=== PATIENT | female | born 1955 | race Caucasian/White ===

== ENCOUNTER 2017-09-23 13:02 | Inpatient (IN) | payer OTHER, MEDICARE ==
[~2017-09-23] VITALS: Ht 162.6 cm; Wt 76.5 kg
[~2017-09-23 13:02] MED LIST: ASPI81TA28 PO; CRD200 PO; DONE23TA PO; LEVO50TA PO; MELA1TAB54 PO; MULT-222 PO; NMN10 PO; SERT-234 PO; SIMV20TA2 PO
--- NOTE | 2017-09-23 13:57 | EMERGENCY ROOM VISIT NOTE ---
History First contact with patient: 13:20 Chief Complaint: SYNCOPE Stated Complaint: PASSED OUT, UNABLE TO STAND VERY LONG Nursing Triage Summary: pt to the ED with c/o not being able walk and change in behavior since yesterday and is conerned for a UTI pt unable to answer questions or follow commands at triage History of Present Illness 62F with a PMHX of small vessel ischemic disease presents to the Emergency Room brought in by spouse who complains of acute worsening of an underlying dementia - specifically has a concern for an increased number of fall in the past week. Last fall occured today while the was helping the patient get dressed - he did catch the pt. The fall previous occurred on Thursday where he also caught his . thinks the pt may have an underlying UTI and has been trying to do an outpatient UA. Patient cannot provide a reliable history, it is unclear if this is from her underlying dementia or a worsening of an acute condition. is concerned that he won't be there for the next patients fall and she will seriously injure herself. Per the he reports that the patient's urine is smelling more foul, appears more concentrated and pt has been peeing more frequently. Patient ambulated into the ER today, didn't answer any questions on triage, denies being in any pain at present, cannot tell me her husbands name, answers [place] when asked where she lives and otherwise remains silent or deflects any other direct questions. Pt's baseline mentation: Can answer her husbands name, ambulates without difficulty, cannot take care of herself but is generally safe at home. Spouse also reports that the patient has a decreased PO intake. Per chart review there have been many ER visits for syncope, echo in 2016 showed EF of 65%, spouse denies any recent unwitnessed falls or recent head trauma. Pt sees Dr. Drake in [facility] (PCP) and Dr. Paz (neurology) in [place]. ROS: No chest pain, no SOB, no dyspnea on exertion, no palpitations, no fevers, no chills, no nausea, no vomiting, no diarrhea, no dysuria, no rash. (per patient and spouse) Review of Systems See HPI for pertinent positives and negatives. A total of ten systems were reviewed and were otherwise negative. Past Medical/Surgical History Medical Problems: (1) Advanced dementia (2) CVA (cerebral infarction) (3) HLD (hyperlipidemia) (4) Hypothyroidism (5) PVC (premature ventricular contraction) (6) Syncopal episodes Surgical Problems: (1) H/O tubal ligation Family History Alzheimer's disease Social History Smoking Status: Never Smoker Alcohol Use: occasionally Drug Use: none Marital Status: Housing Status: lives with significant other Occupation Status: retired Current/Historical Medications Scheduled Aspirin (Aspirin Ec), 81 MG PO DAILY Docusate Sodium (Stool Softener), 100 MG PO BID Donepezil Hydrochloride (Aricept), 23 MG PO HS Doxepin Hcl (Doxepin), 75 MG PO HS Levothyroxine Sodium (Synthroid), 50 MCG PO DAILY Memantine (Namenda), 10 MG PO BID Multiple Vitamins W/ Minerals (Multi For Her), 1 TAB PO DAILY Sertraline (Zoloft), 100 MG PO DAILY Simvastatin (Zocor), 20 MG PO HS Physical Exam Vital Signs Date Time Temp Pulse Resp B/P (MAP) Pulse Ox O2 Delivery O2 Flow Rate FiO2 09/23/17 15:59 75 20 121/77 96 Room Air 09/23/17 15:58 75 121/77 74 141/80 110 120/84 09/23/17 14:26 37.0 67 18 167/71 97 Room Air 09/23/17 14:10 69 18 148/70 94 Room Air 09/23/17 14:04 71 09/23/17 13:57 94 Room Air 09/23/17 13:09 37.0 65 16 137/82 96 Room Air Physical Exam Gen: No acute distress. Pleasant appearing female accompanied by . HEENT: Head - normocephalic and atraumatic. Pupils are equal, round, and reactive to light. Extraocular eye muscles are intact and sclera are anicteric. Ears - bilaterally patent canals with noninjected tympanic membranes and no evidence of hemotympanum. Nose - moist nasal mucosa without discharge. Mouth - mucosa appears slightly dry. Oropharynx is nonerythematous and there is no tonsillar exudate or edema noted. Neck: Supple; no JVD, nuchal rigidity, cervical lymphadenopathy, or auscultated bruits. Heart: Regular rate and rhythm. There is a normal S1 and S2 with no murmurs, clicks, or gallops appreciated. Lungs: Clear to auscultation bilaterally with no wheezes, rales, or rhonchi. Abdomen: Soft, completely nontender, nondistended, with good bowel sounds. There are no palpable pulsatile masses or hepatosplenomegaly. There is no guarding, rigidity, or rebound noted. Extremities: Ecchymosis over the anterior R horne. No evidence of cyanosis, clubbing, or edema. There are easily palpable peripheral pulses. Neuro:The patient is awake and alert, oriented only to person (not place or time ). Pt has difficulty following commands, commands must be repeated several times but eventually was able to raise the arms and legs. Muscle strength is 5/ 5 in all 4 extremities. The patient has equal screenplay writer strength and equal pedal push and pull. There is no cogwheel rigidity. Pt is unable to recall 3 items , pt is unable to count down from 10. Medical Decision & Procedures Laboratory Results Test 09/23/17 13:45 09/23/17 13:51 09/23/17 14:05 Prothrombin Time 10.7 SECONDS (9.0-12.0) Prothromb Time International Ratio 1.0 (0.9-1.1) Total Bilirubin 0.6 mg/dl (0.2-1) Aspartate Amino Transf (AST/SGOT) 32 U/L (15-37) Alanine Aminotransferase (ALT/SGPT) 33 U/L (12-78) Alkaline Phosphatase 94 U/L (45-117) Total Protein 7.4 gm/dl (6.4-8.2) Albumin 3.8 gm/dl (3.4-5.0) Globulin 3.6 gm/dl (2.5-4.0) Albumin/Globulin Ratio 1.1 (0.9-2) Bedside Troponin I < 0.030 ng/ml (0-0.045) Urine Color DK YELLOW Urine Appearance CLEAR (CLEAR) Urine pH 5.5 (4.5-7.5) Urine Specific [place] 1.034 (1.000-1.030) Urine Protein TRACE (NEG) Urine Glucose (UA) NEG (NEG) Urine Ketones TRACE (NEG) Urine Occult Blood NEG (NEG) Urine Nitrite NEG (NEG) Urine Bilirubin NEG (NEG) Urine Urobilinogen NEG (NEG) Urine Leukocyte Esterase NEG (NEG) Urine WBC (Auto) 1-5 /hpf (0-5) Urine RBC (Auto) 0-4 /hpf (0-4) Urine Hyaline Casts (Auto) 1-5 /lpf (0-5) Urine Epithelial Cells (Auto) 10-20 /lpf (0-5) Urine Bacteria (Auto) NEG (NEG) Medications Administered Medications (Trade) Dose Ordered Sig/Jevon Route Start Time Stop Time Status Last Admin Dose Admin Sodium Chloride 1,000 ml @ 999 mls/hr Q1H1M IV 09/23/17 14:15 09/23/17 15:15 DC 09/23/17 14:26 999 MLS/HR Medical Decision The patient's care and disposition was discussed with Dr. Caballero, Attending ED Physician. This is a 62F with acute worsening of her dementia. Differential diagnosis include dementia, CVA, fatigue, hypotension, dehydration, infection, hypoglycemia, electrolyte abnormalities, cardiac sources, intracerebral event, toxicologic, neurologic, as well as others were entertained. Triage Nursing notes were reviewed. ED Course included an extensive history and physical exam, labs, EKG and X-ray. CBC and BMP was not significant. Trop was negative. X-ray was normal. UA was unremarkable. EKG was reviewed and repeated and showed non specific ST changes. Orthostatics positive for increased pulse >20beats per min within 3 minutes of standing. Echo in 2016 showed an EF of 65%. Gave patient 1L bolus of NSS. Updated spouse at bedside regarding possible admission. At present time it is unsafe to send the patient home. She at least will need home services and further cardiac eval. Per chart review she has had tilt table testing in the past and has had several Holter Monitors in the past. She may need a Loop recorder. 4:30pm - Spoke with Kimberly JAMES for admission. The pt and spouse was informed about the findings as listed above. All questions were answered. Impression Primary Impression: Syncope Departure Information Dispostion Admitted as an inpatient (Kimberly) Referrals (PCP) Patient Instructions My [facility] Resident Involvement: Resident Care Provided Care Provided: Adult ED
[2017-09-23] MEDS ORDERED: DXP/75 PO (14:00)
[2017-09-23 14:06] LABS: HEMATOCRIT 37.3 % (37-47); HEMOGLOBIN 11.9 g/dL (12.0-16.0); MEAN CELL VOLUME 59.5 fL (80-100); MEAN CORPUSCULAR HGB CONC 31.9 g/dl (32-36); PLATELET COUNT 239 K/uL (130-400); RED CELL DISTRIBUTION WIDTH CV 16.7 % (11.5-14.5); RED CELL DISTRIBUTION WIDTH SD 34.9 fL (36.4-46.3)
[2017-09-23] MEDS ORDERED: SODIUM CHLORIDE 0.9% 1000ML 1,000 ML IV SCH (14:15)
--- NOTE | 2017-09-23 14:21 | DIAGNOSTIC IMAGING REPORT ---
CHEST ONE VIEW PORTABLE CLINICAL HISTORY: syncope COMPARISON STUDY: 07/19/2016 FINDINGS: The cardiac and mediastinal contours are normal. There is no evidence of focal pulmonary consolidation. There is no evidence of failure. No pleural effusions are visualized.[There is a 7 mm right apical density. This is rather dense given its small size and therefore likely is postinflammatory IMPRESSION: No active disease in the chest. Electronically signed by: Chilango Rosenthal M.D. 09/23/2017 2:20 PM Dictated Date/Time: 09/23/2017 2:19 PM
[2017-09-23 14:23] LABS: ALBUMIN 3.8 gm/dl (3.4-5.0); ALT/SGPT 33 U/L (12-78); AST/SGOT 32 U/L (15-37); BLOOD UREA NITROGEN 21 mg/dl (7-18); CARBON DIOXIDE 29 mmol/L (21-32); CREATININE 0.97 mg/dl (0.60-1.20); GLUCOSE 100 mg/dl (70-99); POTASSIUM 3.3 mmol/L (3.5-5.1); SODIUM 138 mmol/L (136-145)
[2017-09-23 14:26] LABS: ALKALINE PHOSPHATASE 94 U/L (45-117); TOTAL PROTEIN 7.4 gm/dl (6.4-8.2)
--- NOTE | 2017-09-23 14:28 | DIAGNOSTIC IMAGING REPORT ---
HEAD WITHOUT CONTRAST (CT) CLINICAL HISTORY: 62 years-old Female with syncope. Acute syncope TECHNIQUE: Multiple axial CT images of the head were obtained without contrast. A dose lowering technique was utilized adhering to the principles of ALARA. CT DOSE: 537.48 mGy.cm COMPARISON: Head CT 07/19/2016 FINDINGS: No acute intracranial hemorrhage, midline shift, intracranial mass, hydrocephalus, territorial ischemia or abnormal extra-axial collection. Advanced cerebral and cerebellar atrophy with ex vacuo ventriculomegaly. Mild chronic microvascular ischemic changes. The calvarium is intact. The paranasal sinuses, mastoid air cells, and middle ear cavities are clear. IMPRESSION: No acute intracranial abnormality. The above report was generated using voice recognition software. It may contain grammatical, syntax or spelling errors. Electronically signed by: Conrad Orozco M.D. 09/23/2017 2:26 PM Dictated Date/Time: 09/23/2017 2:24 PM
[2017-09-23] MEDS ORDERED: DOCU100C PO (16:10)
[2017-09-23] MEDS ORDERED: SENNTAB23 (16:10)
--- NOTE | 2017-09-23 17:02 | EMERGENCY ROOM VISIT NOTE ---
History Report prepared by Cora: Moe Dorado Under the Supervision of: Dr. Renaldo Caballero M.D. First contact with patient: 13:20 Chief Complaint: SYNCOPE Stated Complaint: PASSED OUT, UNABLE TO STAND VERY LONG Nursing Triage Summary: pt to the ED with c/o not being able walk and change in behavior since yesterday and is conerned for a UTI pt unable to answer questions or follow commands at triage History of Present Illness The patient is a 62 year old female who presents to the Emergency Room with complaints of persistent altered mental status beginning three days ago. She has a history of baseline dementia secondary to small vessel ischemic disease. Per , the patient has had a recent rapid increased confusion. He is concerned for UTI, as the patient also has urinary symptoms. Her urinary symptoms include foul smelling urine, increased urinary frequency and dark coloration. The patient's notes that the patient passed out today, but he caught her and she did not suffer any trauma. He states that she was incontinent, and her eyes rolled back in her head, but otherwise denies seizure- like activity. He also notes that she has been falling a lot recently, and has been seen in the ED many times within the past four years for falls and syncopal episodes. Her most recent syncopal episode prior to today was three days ago. She typically passes out around four times a year. The patient's denies fevers. He notes that the patient has not been eating or drinking well recently. The patient denies chest pain, abdominal pain, headache , nausea, or vomiting. HPI limited secondary to dementia. Source of History: patient, spouse/significant other () History Limited By: dementia Onset: Three days ago Quality: other (altered mental status) Timing: other (persistent) Associated Symptoms: + urinary symptoms (foul smell, increased frequency, dark color), No headache, No chest pain, No nausea, No vomiting, No abdominal pain Note: Additional symptoms: syncopal episode. Review of Systems ROS limited secondary to dementia. Past Medical & Surgical Medical Problems: (1) Alzheimers disease (2) Chest pain (3) CVA (cerebral infarction) (4) PVC (premature ventricular contraction) Surgical Problems: (1) H/O tubal ligation Family History Alzheimer's disease Social History Smoking Status: Never Smoker Alcohol Use: occasionally Drug Use: none Marital Status: Housing Status: lives with significant other Occupation Status: retired Current/Historical Medications Scheduled Aspirin (Aspirin Ec), 81 MG PO DAILY Docusate Sodium (Stool Softener), 100 MG PO BID Donepezil Hydrochloride (Aricept), 23 MG PO HS Doxepin Hcl (Doxepin), 75 MG PO HS Levothyroxine Sodium (Synthroid), 50 MCG PO DAILY Memantine (Namenda), 10 MG PO BID Multiple Vitamins W/ Minerals (Multi For Her), 1 TAB PO DAILY Sertraline (Zoloft), 100 MG PO DAILY Simvastatin (Zocor), 20 MG PO HS Allergies Coded Allergies: Penicillins (Verified Allergy, Unknown, unknown, 09/23/17) Physical Exam Vital Signs Date Time Temp Pulse Resp B/P (MAP) Pulse Ox O2 Delivery O2 Flow Rate FiO2 09/23/17 15:59 75 20 121/77 96 Room Air 09/23/17 15:58 75 121/77 74 141/80 110 120/84 09/23/17 14:26 37.0 67 18 167/71 97 Room Air 09/23/17 14:10 69 18 148/70 94 Room Air 09/23/17 14:04 71 09/23/17 13:57 94 Room Air 09/23/17 13:09 37.0 65 16 137/82 96 Room Air Physical Exam Constitutional: Vital signs reviewed. Eyes: Pupils are equal round reactive to light. Conjunctiva are noninjected. ENT: Pharynx is clear without erythema or exudate. Mucous membranes are moist. Neck supple without meningeal signs. Respiratory: Clear to auscultation bilaterally. Breath sounds are equal bilaterally. Cardiovascular: Regular rate and rhythm. No rubs or gallops. GI: Soft, nondistended and nontender. Bowel sounds are present. Musculoskeletal: No peripheral edema. No lower extremity tenderness. Integumentary: No cyanosis. Neurological: The patient is awake and alert. No focal deficits. Psychiatric: Unable to assess. Medical Decision & Procedures ER Provider Diagnostic Interpretation: Radiology results as stated below per my review and the radiologist's interpretation: HEAD WITHOUT CONTRAST (CT) FINDINGS: No acute intracranial hemorrhage, midline shift, intracranial mass, hydrocephalus, territorial ischemia or abnormal extra-axial collection. Advanced cerebral and cerebellar atrophy with ex vacuo ventriculomegaly. Mild chronic microvascular ischemic changes. The calvarium is intact. The paranasal sinuses, mastoid air cells, and middle ear cavities are clear. IMPRESSION: No acute intracranial abnormality. The above report was generated using voice recognition software. It may contain grammatical, syntax or spelling errors. Electronically signed by: Conrad Orozco M.D. 09/23/2017 2:26 PM CHEST ONE VIEW PORTABLE FINDINGS: The cardiac and mediastinal contours are normal. There is no evidence of focal pulmonary consolidation. There is no evidence of failure. No pleural effusions are visualized.[There is a 7 mm right apical density. This is rather dense given its small size and therefore likely is postinflammatory IMPRESSION: No active disease in the chest. Electronically signed by: Chilango Rosenthal M.D. 09/23/2017 2:20 PM Laboratory Results 09/23/17 13:45 09/23/17 13:45 Test 09/23/17 13:45 09/23/17 13:51 09/23/17 14:05 Red Blood Count 6.27 M/uL (4.2-5.4) Mean Corpuscular Volume 59.5 fL (80-100) Mean Corpuscular Hemoglobin 19.0 pg (25-34) Mean Corpuscular Hemoglobin Concent 31.9 g/dl (32-36) RDW Standard Deviation 34.9 fL (36.4-46.3) RDW Coefficient of Variation 16.7 % (11.5-14.5) Anion Gap 5.0 mmol/L (3-11) Estimated GFR () 72.5 Estimated GFR (Non- 62.6 BUN/Creatinine Ratio 22.1 (10-20) Calcium Level 9.0 mg/dl (8.5-10.1) Magnesium Level 2.4 mg/dl (1.8-2.4) Total Bilirubin 0.6 mg/dl (0.2-1) Aspartate Amino Transf (AST/SGOT) 32 U/L (15-37) Alanine Aminotransferase (ALT/SGPT) 33 U/L (12-78) Alkaline Phosphatase 94 U/L (45-117) Total Protein 7.4 gm/dl (6.4-8.2) Albumin 3.8 gm/dl (3.4-5.0) Globulin 3.6 gm/dl (2.5-4.0) Albumin/Globulin Ratio 1.1 (0.9-2) Bedside Troponin I < 0.030 ng/ml (0-0.045) Urine Color DK YELLOW Urine Appearance CLEAR (CLEAR) Urine pH 5.5 (4.5-7.5) Urine Specific [place] 1.034 (1.000-1.030) Urine Protein TRACE (NEG) Urine Glucose (UA) NEG (NEG) Urine Ketones TRACE (NEG) Urine Occult Blood NEG (NEG) Urine Nitrite NEG (NEG) Urine Bilirubin NEG (NEG) Urine Urobilinogen NEG (NEG) Urine Leukocyte Esterase NEG (NEG) Urine WBC (Auto) 1-5 /hpf (0-5) Urine RBC (Auto) 0-4 /hpf (0-4) Urine Hyaline Casts (Auto) 1-5 /lpf (0-5) Urine Epithelial Cells (Auto) 10-20 /lpf (0-5) Urine Bacteria (Auto) NEG (NEG) Laboratory results as reviewed by me. Medications Administered Medications (Trade) Dose Ordered Sig/Jevon Route Start Time Stop Time Status Last Admin Dose Admin Sodium Chloride 1,000 ml @ 999 mls/hr Q1H1M IV 09/23/17 14:15 09/23/17 15:15 DC 09/23/17 14:26 999 MLS/HR ECG Indication: altered mental status Rate (beats per minute): 73 Rhythm: normal sinus Findings: PVC, other (No ST elevations. Limited interpretation due to motion. ) ED Course 1322: The patient was evaluated in room C2B. A complete history and physical exam was performed. 1415: Ordered Sodium Chloride 1000 ml @ 999 mls/hr IV. 1625: Upon reevaluation, the patient is resting. I discussed tonight's findings with her. She verbalized agreement of the treatment plan. The patient will be evaluated for further management. Medical Decision Resident Physician Supervision Note: I did evaluate and examine this patient myself. I did guide management for the patient. I agree with the resident's Dr. Decker assessment as discussed. Please see the resident's dictation for further details. This is a 62-year-old female who presents with syncopal episodes. Differential diagnosis includes orthostatic hypotension, vasovagal syncope, dysrhythmia, metabolic derangement, UTI, seizure. I did perform a limited focused review of portions of the patient's old chart on the electronic medical record. The patient had a Tilt Table Test in 2016 which showed orthostatic hypotension, but not enough to cause symptoms. I did evaluate the patient as noted above. I did obtain history from the patient as well as her . The patient has dementia and is often unreliable in terms of reporting or symptoms per her . He has noted increase confusion as well as urinary symptoms for the past several days. She also had 2 syncopal episodes in the past several days. He states that her doctor has been concerned about possible sick sinus syndrome but her jar capper did not feel this was likely the cause. She did have an EEG 5 years ago which did not show anything remarkable. The patient did not have any significant seizure activity per the but she did have her eyes rolled back and she was incontinent of urine. IV access was established. The patient was placed on a continuous subway guard. I did order and personally review the patient's 12-lead EKG and chest x-ray as described above. I did order and review the patient's blood work as noted in the electronic medical record. I did order a CT of the head. I did review the images myself as well as the radiology report as described above. There is no evidence of acute process. The test results were discussed with the patient and her . Because of her recurrent syncope and change in mental status I did feel the patient would benefit from hospitalization with further evaluation. The case was discussed with the hospitalist and case work aide. Medication Reconcilliation Current Medication List: was personally reviewed by me Blood Pressure Screening Patient's blood pressure: Elevated blood pressure Blood pressure disposition: Elevated BP felt to be situational Consults Time Called: 1620 Consulting Physician: Jessica Marcelino PA-C - [facility] Hospitalist Returned Call: [phone] I spoke with Jessica Marcelino PA-C of [facility]. We discussed the patient and her results. The patient will be further evaluated by Kimberly. Impression Primary Impression: Syncope Scribe Attestation The scribe's documentation has been prepared under my direct and personally reviewed by me in its entirety. I confirm that the note above accurately reflects all work, treatment, procedures, and medical decision making performed by me. Departure Information Dispostion Being Evaluated By Hospitalist Jeanne Askew M.D. (PCP) Patient Instructions My [facility] Problem Qualifiers Primary Impression: Syncope Syncope type: unspecified Qualified Codes: R55 - Syncope and collapse
[2017-09-23] MEDS ORDERED: ACETAMINOPHEN 325 MG TAB PO PRN (17:15)
[2017-09-23] MEDS ORDERED: ONDANSETRON INJ 2 MG/ML 2 ML VIAL IV PRN (17:15)
--- NOTE | 2017-09-23 18:22 | History and Physical ---
History & Physical Date & Time of Service: Sep 23, 2017 at 18:21 Chief Complaint: Sycopal Episodes Primary Care Physician: Jeanne Drake M.D. History of Present Illness Source: patient, clinic records, hospital records This is a 62yo F with a PMH of advanced dementia (2/2 small vessel ischemic disease), HTN (not on meds 2/2 orthostasis), history of CVA, HLD, hypothyroidism and chronic anemia who presents after a syncopal episode earlier today. At baseline, patient requires help with all care at home from but is able to walk independently. History is obtained from since is unable to provide a reliable history 2/2 dementia. He states that she had a syncopal event on Thursday when he was helping the patient to get dressed. was able to catch her. A second event occurred today again while he was helping to dress patient. She has a history of syncope 2/2 orthostasis and is able to identify a vague prodrome and tell her that she doesn't feel well but cannot articulate if she experiences any lightheadedness, palpitations or CP prior to event. Has been admitted for a similar episode in the past and was evaluated by cardiology. Orthostatic hypotension is presumed to be due to autonomic dysfunction 2/2 dementia. No cardiac abnormalities were identified on telemetry at this time besides persistent PVCs. Was started on amiodarone after last admission for symptomatic PVCs but the medication has since been discontinued. There is suspicion for sick sinus syndrome but have not been able to identify on cardiac monitoring. Echo from 2016 shows an EF of 65%. Brain MRI from 2016 with generalized atrophy, no acute infarction or mass. Follows with Dr. Drake (PCP), Dr. Wellington (cardio) and Dr. Paz (neuro). endorses poor water intake, foul smelling urine and more frequent bouts of incontinence over the past few days. Also endorses more confusion than baseline. Patient able to tell me her name but not location, time. Unsure of 's name. Denies any pain, lightheadedness, palpitations,CP, SOB, abd pain , nausea, vomiting or LE swelling. Past Medical/Surgical History Medical Problems: (1) Advanced dementia Permanent Comment: 2/2 small ischemic vessel disease Status: Chronic (2) CVA (cerebral infarction) Status: Resolved (3) HLD (hyperlipidemia) Status: Chronic (4) Hypothyroidism Status: Chronic (5) PVC (premature ventricular contraction) Status: Chronic Surgical Problems: (1) H/O tubal ligation Status: Resolved Family History Alzheimer's disease Social History Smoking Status: Never Smoker Alcohol Use: none Drug Use: none Marital Status: Housing status: lives with significant other Occupational Status: retired Allergies Coded Allergies: Penicillins (Verified Allergy, Unknown, unknown, 09/23/17) Home Medications Scheduled Aspirin (Aspirin Ec), 81 MG PO DAILY Docusate Sodium (Stool Softener), 100 MG PO BID Donepezil Hydrochloride (Aricept), 23 MG PO HS Doxepin Hcl (Doxepin), 75 MG PO HS Levothyroxine Sodium (Synthroid), 50 MCG PO DAILY Memantine (Namenda), 10 MG PO BID Multiple Vitamins W/ Minerals (Multi For Her), 1 TAB PO DAILY Sertraline (Zoloft), 100 MG PO DAILY Simvastatin (Zocor), 20 MG PO HS Review of Systems Ten systems reviewed and negative except as noted in the HPI. Physical Exam Vital Signs Date Time Temp Pulse Resp B/P (MAP) Pulse Ox O2 Delivery O2 Flow Rate FiO2 09/23/17 17:52 59 20 134/93 99 Room Air 09/23/17 15:59 75 20 121/77 96 Room Air 09/23/17 15:58 75 121/77 74 141/80 110 120/84 09/23/17 14:26 37.0 67 18 167/71 97 Room Air 09/23/17 14:10 69 18 148/70 94 Room Air 09/23/17 14:04 71 09/23/17 13:57 94 Room Air 09/23/17 13:09 37.0 65 16 137/82 96 Room Air General Appearance: WD/WN, no apparent distress Head: normocephalic, atraumatic Eyes: normal inspection, PERRL, sclerae normal ENT: normal ENT inspection, hearing grossly normal, pharynx normal Neck: supple, thyroid normal, trachea midline Respiratory/Chest: chest non-tender, lungs clear, normal breath sounds, no respiratory distress, no accessory muscle use Cardiovascular: no edema, no murmur, normal peripheral pulses, + pertinent finding (Irregular rhythm ) Abdomen/GI: non tender, soft, no organomegaly Back: normal inspection Extremities/Musculoskelatal: normal inspection, no calf tenderness, no pedal edema Neurologic/Psych: no motor/sensory deficits, alert, normal mood/affect, oriented x 3 Skin: normal color, warm/dry Diagnostics Laboratory Results Results Past 24 Hours Test 09/23/17 13:45 09/23/17 13:51 09/23/17 14:05 Range/Units White Blood Count 10.70 4.8-10.8 K/uL Red Blood Count 6.27 4.2-5.4 M/uL Hemoglobin 11.9 12.0-16.0 g/dL Hematocrit 37.3 37-47 % Mean Corpuscular Volume 59.5 80-100 fL Mean Corpuscular Hemoglobin 19.0 25-34 pg Mean Corpuscular Hemoglobin Concent 31.9 32-36 g/dl RDW Standard Deviation 34.9 36.4-46.3 fL RDW Coefficient of Variation 16.7 11.5-14.5 % Platelet Count 239 130-400 K/uL Sodium Level 138 136-145 mmol/L Potassium Level 3.3 3.5-5.1 mmol/L Chloride Level 104 98-107 mmol/L Carbon Dioxide Level 29 21-32 mmol/L Anion Gap 5.0 3-11 mmol/L Blood Urea Nitrogen 21 7-18 mg/dl Creatinine 0.97 0.60-1.20 mg/dl Estimated GFR () 72.5 Estimated GFR (Non- 62.6 BUN/Creatinine Ratio 22.1 10-20 Random Glucose 100 70-99 mg/dl Calcium Level 9.0 8.5-10.1 mg/dl Magnesium Level 2.4 1.8-2.4 mg/dl Total Bilirubin 0.6 0.2-1 mg/dl Aspartate Amino Transf (AST/SGOT) 32 15-37 U/L Alanine Aminotransferase (ALT/SGPT) 33 12-78 U/L Alkaline Phosphatase 94 45-117 U/L Total Protein 7.4 6.4-8.2 gm/dl Albumin 3.8 3.4-5.0 gm/dl Globulin 3.6 2.5-4.0 gm/dl Albumin/Globulin Ratio 1.1 0.9-2 Bedside Troponin I < 0.030 0-0.045 ng/ml Urine Color DK YELLOW Urine Appearance CLEAR CLEAR Urine pH 5.5 4.5-7.5 Urine Specific [place] 1.034 1.000-1.030 Urine Protein TRACE NEG Urine Glucose (UA) NEG NEG Urine Ketones TRACE NEG Urine Occult Blood NEG NEG Urine Nitrite NEG NEG Urine Bilirubin NEG NEG Urine Urobilinogen NEG NEG Urine Leukocyte Esterase NEG NEG Urine WBC (Auto) 1-5 0-5 /hpf Urine RBC (Auto) 0-4 0-4 /hpf Urine Hyaline Casts (Auto) 1-5 0-5 /lpf Urine Epithelial Cells (Auto) 10-20 0-5 /lpf Urine Bacteria (Auto) NEG NEG Diagnostic Radiology CT head: No acute intracranial hemorrhage, midline shift, intracranial mass, hydrocephalus, territorial ischemia or abnormal extra-axial collection. Advanced cerebral and cerebellar atrophy with ex vacuo ventriculomegaly. Mild chronic microvascular ischemic changes. The calvarium is intact. The paranasal sinuses, mastoid air cells, and middle ear cavities are clear. IMPRESSION: No acute intracranial abnormality. CXR normal Impression Assessment and Plan This is a 62yo F with a PMH of advanced dementia (2/2 small vessel ischemic disease), HTN (not on meds 2/2 orthostasis), history of CVA, HLD, hypothyroidism and chronic anemia who presents after a syncopal episode earlier today. Syncopal episodes: -Likely 2/2 orthostatic hypotension - + Orthostatics in ED (HR) -Dry on exam, endorses poor PO intake -Likely an autonomic component as well, 2/2 small vessel ischemic disease -History of persistent PVCs on EKG -2016 Echo with EF of 65% -Cardio consult -Monitor on telemetry -IVF resuscitation -Compression stockings -EEG ordered Altered mental status: -Patient with severe dementia at baseline -Per , is more confused right now than at baseline -CT head without acute findings -Concern for UTI but UA is WNL -Afebrile, no leukocytosis -No neuro deficits on exam -Could be progression of dementia -Monitor; consider neuro consult Advanced dementia: -2/2 small vessel ischemic disease -Brain MRI in 2016 with generalized atrophy, no acute findings -Cont home meds HLD: -Stable -Cont statin Hypothyroidism: - Cont levothyroxine Chronic anemia: -Hgb stable at 11.9 -At baseline Dispo: -Patient requires a high level of care -Currently stays home alone while works -High risk of injury with recurrent falls 2/2 syncope -Discharge planning ordered for possible home health -PT/OT evals ordered DVT Ppx: SQ heparin Code status: DNR per discussion with (POA) PCP: Vidal Dispo: Telemetry observation. See above. Patient seen in collaboration with Dr. Rogers. Please see addendum. Agree with above H and P. Briefly 62F with hx of dementia and syncope presents with another episode of syncope two times in last 3 days. Today patient passed ou t when she stood and helped her not to fall on the floor. As per she passed out more time than usual and her hands were somewhat shaky and had incontinence of urine. No fevers.Poor intake. Followed with cardiology in the past. Says tilt/table test was positive for orthostatic hypotension. Heart monitors were unremarkable twice.Also follows with neurology. Oriented to name only. Hemodynamics stable. p/e Ge not in distress Cvs s1 and s2 heard,regular Rs cta b/l no added sounds Abd benign Slubber Tender Oriented x1 non focal Ext NO pedal edema present A/P Syncope mostly orthostatic fluids f/u eeg cardiology consulted Chronic anemia f/u labs Level of Care Critical Care Resuscitation Status DO NOT RESUSCITATE VTE Prophylaxis VTE Risk Assessment Done? Y/N: Yes Risk Level: Moderate Given or contraindicated: Unfractionated heparin SQ
[2017-09-23 18:30] VITALS: BP 135/79; PULSE 71; TEMP 36.9; O2SAT 99; Ht 162.6 cm; Wt 76.5 kg
[2017-09-23] MEDS ORDERED: POTASSIUM CHLORIDE INJ 40 MEQ in SODIUM CHLORIDE 0.9% 1000ML 1,000 ML IV SCH (18:45)
[2017-09-23] MEDS ORDERED: IV FLUIDS COMPLETED PRN (20:15)
[2017-09-23] MEDS: DONEPEZIL HCL 23 MG TAB PO SCH (20:45)
[2017-09-23] MEDS: SIMVASTATIN 20 MG TAB PO SCH (20:46)
[2017-09-23] MEDS: MEMANTINE 10 MG TAB PO SCH (20:47)
[2017-09-23] MEDS: DOCUSATE SODIUM 100 MG CAP PO SCH (20:47)
[2017-09-23] MEDS: DOXEPIN HCL 75 MG CAP PO SCH (20:47)
[2017-09-23] MEDS: HEPARIN SOD 5000 UNIT/0.5 ML CARP SQ SCH (20:54)
[2017-09-23] MEDS ORDERED: INFLUENZA ADMINISTRATION CHARGE ONE (21:30)
[2017-09-23] MEDS ORDERED: INFLUENZA VIRUS QUAD VACCINE 0.5 ML SYR IM. ONE (21:30)
[2017-09-23 23:48] VITALS: BP 136/81; PULSE 90; TEMP 36.9; O2SAT 98
[2017-09-24] VITALS (9 sets, daily range): BP systolic 107–156; BP diastolic 58–89; PULSE 60–90; TEMP 36.2–37.1; O2SAT 94–97
[2017-09-24 05:50] LABS: HEMOGLOBIN 10.3 g/dL (12.0-16.0); MEAN CELL VOLUME 60.2 fL (80-100); MEAN CORPUSCULAR HEMOGLOBIN 19.4 pg (25-34); MEAN CORPUSCULAR HGB CONC 32.2 g/dl (32-36); PLATELET COUNT 228 K/uL (130-400); RED CELL DISTRIBUTION WIDTH CV 16.8 % (11.5-14.5); RED CELL DISTRIBUTION WIDTH SD 35.9 fL (36.4-46.3); WHITE BLOOD COUNT 6.85 K/uL (4.8-10.8)
[2017-09-24] MEDS: HEPARIN SOD 5000 UNIT/0.5 ML CARP SQ SCH ×3 (05:50→20:40)
[2017-09-24] MEDS: LEVOTHYROXINE 50 MCG TAB PO SCH (05:51)
[2017-09-24 05:56] LABS: PTT PATIENT 26.7 SECONDS (21.0-31.0)
[2017-09-24 06:40] LABS: CALCIUM 8.4 mg/dl (8.5-10.1); CREATININE 0.8 mg/dl (0.60-1.20)
[2017-09-24] MEDS: CEROVITE ADV FORMULA TAB PO SCH (07:41)
[2017-09-24] MEDS: DOCUSATE SODIUM 100 MG CAP PO SCH ×2 (07:41→20:35)
[2017-09-24] MEDS: SERTRALINE HCL 100 MG TAB PO SCH (07:41)
[2017-09-24] MEDS: ASPIRIN 81 MG ECTAB PO SCH (07:41)
[2017-09-24] MEDS: MEMANTINE 10 MG TAB PO SCH ×2 (07:41→20:35)
--- NOTE | 2017-09-24 10:31 | Cardiology Consultation ---
Cardiology Consultation Date of Consultation: Sep 24, 2017. Requesting Physician: Dr. Linda Reason for Consultation: Loss of consciousness, fall Pt evaluation today including: conversation w/ patient, physical exam, lab review, review of studies, review of inpatient medication list History of Present Illness This is a very pleasant 62-year-old woman who I believe has Alzheimer's and significant dementia and therefore her is the primary historian, he is a nurse. He reports that she was diagnosed as having a stroke a number of years ago, including visual field defects, however based on her neurologic evaluation her main problem is Alzheimer's type dementia. She has been having difficulty with loss of consciousness for several years, the episodes however have been becoming more frequent. She did have a tilt test performed 09/04/2016, this documented a significant drop in blood pressure and an increase in heart rate consistent with orthostasis although loss of consciousness was not observed. This was however felt to be a likely cause of her loss of consciousness. She also has history of frequent premature ventricular beats and was on amiodarone, but no longer is. She was brought to the emergency room on 09/23/2017 by her due to having further episodes of loss of consciousness requiring her to catch her. This occurred on 09/20/2017 and 09/24/2017. She has also been having worsening of her confusion. She was therefore admitted. At the time of evaluation today she cannot answer questions appropriately, she is not oriented even to her full name, only her first name. Past Medical/Surgical History (1) CVA (cerebral infarction) (2) Hypothyroidism (3) HLD (hyperlipidemia) (4) Advanced dementia (5) PVC (premature ventricular contraction) (6) Syncopal episodes Family History Alzheimer's disease Social History Smoking Status: Never Smoker History of Alcohol Use: No Review of Systems Constitutional: No fever, No weight loss, No weakness Respiratory: No cough, No wheezing, No shortness of breath, No dyspnea on exertion Cardiac: No chest pain, No orthopnea, No PND, No edema, No palpitations Abdomen: No pain, No nausea, No vomiting, No diarrhea, No GI bleeding Female : No problem reported Neurologic: No paralysis, No weakness, No numbness/tingling, No balance problems Heme: No abnormal bleeding/bruising, No clotting problems Endo: No fatigue Skin: No problem reported Her history is unreliable due to dementia, therefore I don't believe her review of systems will be reliable All Other Systems: Reviewed and Negative Allergies Coded Allergies: Penicillins (Verified Allergy, Unknown, unknown, 09/23/17) Medications Current Inpatient Medications Medications (Trade) Dose Ordered Sig/Jevon Route Start Time Stop Time Status Last Admin Dose Admin Heparin Sodium (Porcine) (Heparin Sq 5000 Unit/0.5ml) 5,000 unit Q8 SQ 09/23/17 22:00 10/23/17 21:59 09/24/17 05:50 5,000 UNIT Acetaminophen (Tylenol Tab) 650 mg Q4H PRN PO 09/23/17 17:15 10/23/17 17:14 Ondansetron HCl (Zofran Inj) 4 mg Q6H PRN IV 09/23/17 17:15 10/23/17 17:14 Aspirin (Ecotrin Tab) 81 mg DAILY PO 09/24/17 09:00 10/24/17 08:59 09/24/17 07:41 81 MG Docusate Sodium (coLACE CAP) 100 mg BID PO 09/23/17 21:00 10/23/17 20:59 09/24/17 07:41 100 MG Doxepin HCl (Sinequan Cap) 75 mg HS PO 09/23/17 21:00 10/23/17 20:59 09/23/17 20:47 75 MG Levothyroxine Sodium (Synthroid Tab) 50 mcg DAILYBB PO 09/24/17 06:30 10/24/17 06:29 09/24/17 05:51 50 MCG Memantine (Namenda Tab) 10 mg BID PO 09/23/17 21:00 10/23/17 20:59 09/24/17 07:41 10 MG Multivitamins/ Minerals (Multivitamin W/ Minerals Tab) 1 tab DAILY PO 09/24/17 09:00 10/24/17 08:59 09/24/17 07:41 1 TAB Sertraline HCl (Zoloft Tab) 100 mg DAILY PO 09/24/17 09:00 10/24/17 08:59 09/24/17 07:41 100 MG Simvastatin (Zocor Tab) 20 mg HS PO 09/23/17 21:00 10/23/17 20:59 09/23/17 20:46 20 MG Miscellaneous (Iv Fluids Completed) 1 ea PRN PRN N/A 09/23/17 20:15 09/23/18 20:14 09/24/17 06:00 1 EA Donepezil HCl (Aricept) 23 mg HS PO 09/23/17 21:00 10/23/17 20:59 09/23/17 20:45 23 MG Physical Exam Vital Signs Past 12 Hours Date Time Temp Pulse Resp B/P (MAP) Pulse Ox O2 Delivery O2 Flow Rate FiO2 09/24/17 07:45 Room Air 09/24/17 07:35 36.2 73 16 125/75 (92) 96 Room Air 09/24/17 05:20 36.9 86 17 144/84 (104) 96 Room Air 09/24/17 04:00 Room Air 09/24/17 00:00 Room Air 09/23/17 23:48 36.9 90 17 136/81 (99) 98 Room Air Constitutional: General Apperance: heathly-appearing Level of Distress: NAD Psychiatric: Mental Status: active & alert Orientation: not oriented to time, not oriented to place, not oriented to person (she can't recall her last name) Head: normocephalic Eyes: EOM: EOMI ENMT: normal ENT inspection, hearing grossly normal Neck: supple, no masses Lungs: Respiratory effort: no dyspnea, good air movement Auscultation: breath sounds normal, no wheezing Cardiovascular: Heart Auscultation: RRR, no murmurs, no rubs, no gallops Peripheral Pulses: Bruits: none appreciated Abdomen: Bowel Sounds: normal Inspection & Palpation: soft, no tenderness, guarding & rebound, no masses Musculoskeletal: normal strength (5/5 throughout) Extremities: no edema Neurologic: Cranial Nerves: grossly intact Sensation: grossly intact Data Laboratory Results: Last 24 Hours Test 09/23/17 13:45 09/23/17 13:51 09/23/17 14:05 09/24/17 05:16 White Blood Count 10.70 K/uL 6.85 K/uL Red Blood Count 6.27 M/uL 5.32 M/uL Hemoglobin 11.9 g/dL 10.3 g/dL Hematocrit 37.3 % 32.0 % Mean Corpuscular Volume 59.5 fL 60.2 fL Mean Corpuscular Hemoglobin 19.0 pg 19.4 pg Mean Corpuscular Hemoglobin Concent 31.9 g/dl 32.2 g/dl RDW Standard Deviation 34.9 fL 35.9 fL RDW Coefficient of Variation 16.7 % 16.8 % Platelet Count 239 K/uL 228 K/uL Prothrombin Time 10.7 SECONDS Prothromb Time International Ratio 1.0 Sodium Level 138 mmol/L 143 mmol/L Potassium Level 3.3 mmol/L 4.0 mmol/L Chloride Level 104 mmol/L 112 mmol/L Carbon Dioxide Level 29 mmol/L 26 mmol/L Anion Gap 5.0 mmol/L 5.0 mmol/L Blood Urea Nitrogen 21 mg/dl 13 mg/dl Creatinine 0.97 mg/dl 0.80 mg/dl Estimated GFR () 72.5 91.6 Estimated GFR (Non- 62.6 79.0 BUN/Creatinine Ratio 22.1 16.5 Random Glucose 100 mg/dl 91 mg/dl Calcium Level 9.0 mg/dl 8.4 mg/dl Magnesium Level 2.4 mg/dl Total Bilirubin 0.6 mg/dl Aspartate Amino Transf (AST/SGOT) 32 U/L Alanine Aminotransferase (ALT/SGPT) 33 U/L Alkaline Phosphatase 94 U/L Total Protein 7.4 gm/dl Albumin 3.8 gm/dl Globulin 3.6 gm/dl Albumin/Globulin Ratio 1.1 Bedside Troponin I < 0.030 ng/ml Urine Color DK YELLOW Urine Appearance CLEAR Urine pH 5.5 Urine Specific [place] 1.034 Urine Protein TRACE Urine Glucose (UA) NEG Urine Ketones TRACE Urine Occult Blood NEG Urine Nitrite NEG Urine Bilirubin NEG Urine Urobilinogen NEG Urine Leukocyte Esterase NEG Urine WBC (Auto) 1-5 /hpf Urine RBC (Auto) 0-4 /hpf Urine Hyaline Casts (Auto) 1-5 /lpf Urine Epithelial Cells (Auto) 10-20 /lpf Urine Bacteria (Auto) NEG Activated Partial Thromboplast Time 26.7 SECONDS Partial Thromboplastin Ratio 1.0 Est Creatinine Clear Calc Drug Dose 73.4 ml/min Imaging: Chest x-ray shows no active disease this admission, CT scan this admission shows advanced atrophy, no acute changes EKG: Sinus rhythm with frequent premature ventricular beats, premature beats may be of right ventricular outflow tract origin Telemetry reviewed: Sinus rhythm, PVCs, no significant abnormality otherwise Assessment & Plan #1. Loss of consciousness: The most likely explanation is orthostasis, as we have documented in the past. Perhaps this is related to her neurologic issue. She does have premature ventricular beats and had been on amiodarone for these but we have never documented an arrhythmia as a cause of her events, but it is possible. I am going to check orthostatic vital signs here, and I would recommend keeping her on telemetry to see whether she has any other arrhythmias. She cannot provide a history of palpitations. She is not on medications for orthostasis, we can consider that if we document a significant blood pressure fall. #2. PVCs: She has long-standing PVCs, to my knowledge we have never documented a more significant arrhythmia she could have nonsustained ventricular tachycardia given that these PVCs are suggestive of her right ventricular outflow tract origin (based on 12-lead morphology). If we don't have a good explanation for her episodes we could consider some type of monitoring to document her rhythm during episodes. I am going to get an echocardiogram to make sure she has not developed a cardiomyopathy from her PVCs, but they don't seem to be frequent enough. Thank you for allowing me to participate in her care.
--- NOTE | 2017-09-24 11:06 | EEG Procedure Note ---
EEG Procedure Note Date of Service Sep 24, 2017. Start / End Times Start Time: 8:01AM End Time: 8:22 AM Referring Physician ERIKA Riggins History This is a 62-year-old female with syncopal event. EEG for further evaluation of possible seizure etiology Home Medication List Scheduled Aspirin (Aspirin Ec), 81 MG PO DAILY Docusate Sodium (Stool Softener), 100 MG PO BID Donepezil Hydrochloride (Aricept), 23 MG PO HS Doxepin Hcl (Doxepin), 75 MG PO HS Levothyroxine Sodium (Synthroid), 50 MCG PO DAILY Memantine (Namenda), 10 MG PO BID Multiple Vitamins W/ Minerals (Multi For Her), 1 TAB PO DAILY Sertraline (Zoloft), 100 MG PO DAILY Simvastatin (Zocor), 20 MG PO HS Inpatient Medication List Current Inpatient Medications Medications (Trade) Dose Ordered Sig/Jevon Route Start Time Stop Time Status Last Admin Dose Admin Heparin Sodium (Porcine) (Heparin Sq 5000 Unit/0.5ml) 5,000 unit Q8 SQ 09/23/17 22:00 10/23/17 21:59 09/24/17 05:50 5,000 UNIT Acetaminophen (Tylenol Tab) 650 mg Q4H PRN PO 09/23/17 17:15 10/23/17 17:14 Ondansetron HCl (Zofran Inj) 4 mg Q6H PRN IV 09/23/17 17:15 10/23/17 17:14 Aspirin (Ecotrin Tab) 81 mg DAILY PO 09/24/17 09:00 10/24/17 08:59 09/24/17 07:41 81 MG Docusate Sodium (coLACE CAP) 100 mg BID PO 09/23/17 21:00 10/23/17 20:59 09/24/17 07:41 100 MG Doxepin HCl (Sinequan Cap) 75 mg HS PO 09/23/17 21:00 10/23/17 20:59 09/23/17 20:47 75 MG Levothyroxine Sodium (Synthroid Tab) 50 mcg DAILYBB PO 09/24/17 06:30 10/24/17 06:29 09/24/17 05:51 50 MCG Memantine (Namenda Tab) 10 mg BID PO 09/23/17 21:00 10/23/17 20:59 09/24/17 07:41 10 MG Multivitamins/ Minerals (Multivitamin W/ Minerals Tab) 1 tab DAILY PO 09/24/17 09:00 10/24/17 08:59 09/24/17 07:41 1 TAB Sertraline HCl (Zoloft Tab) 100 mg DAILY PO 09/24/17 09:00 10/24/17 08:59 09/24/17 07:41 100 MG Simvastatin (Zocor Tab) 20 mg HS PO 09/23/17 21:00 10/23/17 20:59 09/23/17 20:46 20 MG Miscellaneous (Iv Fluids Completed) 1 ea PRN PRN N/A 09/23/17 20:15 09/23/18 20:14 09/24/17 06:00 1 EA Donepezil HCl (Aricept) 23 mg HS PO 09/23/17 21:00 10/23/17 20:59 09/23/17 20:45 23 MG Description This is a 21 electrode EEG with a single channel dedicated to limited EKG. The electrodes were placed in accordance with the International 10-20 system. At the start of the recording the patient was in reported altered mental status. Background was poorly organized often with no well formed anterior to posterior gradient. Background was composed of predominantly 5-6 Hz theta frequencies with intermixed delta and rare alpha/beta frequencies. Hyperventilation was not done. Intermittent photic stimulation at various frequencies produced no abnormalities. There was no state changes or sleep transients. There was noted to be intermittent movement artifact. On video patient was seen briefly shaking head in a no-no manner. Interpretation This is an abnormal routine EEG secondary to moderate background disorganization and slowing. There was no electrographic seizures or epileptiform discharges. Clinical Correlation This EEG indicates a moderate encephalopathy of nonspecific etiology.
--- NOTE | 2017-09-24 11:50 | Progress Note ---
Internal Med Progress Note Date of Service: Sep 24, 2017. Provider Documentation: SUBJECTIVE: Seen and examined at bedside History is limited secondary to Dementia Denies chest pain, SOB, dizziness PVCs noted on Monitor OBJECTIVE: Vital Signs-as noted below Physical Exam: Vitals signs as noted above General Appearance:Moderately built and nourished, no apparent distress Head: normocephalic, Atraumatic Eyes: normal inspection, EOMI, PERRL Neck: supple, Trachea midline Respiratory/Chest: Normal breath sounds, CTA Cardiovascular: S1, S2, No murmur Abdomen/GI:Soft, Non tender, Bowel sounds present Extremities/Musculoskelatal:normal inspection, no edema Neurologic/Psych:grossly no focal neurological deficits Skin: normal color, warm Lab data as noted below. ASSESSMENT & PLAN: Patient is a 62 yr female with a PMH of advanced dementia (2/2 small vessel ischemic disease), HTN (not on meds 2/2 orthostasis), H/O CVA, Recurrent syncopal, HLD, hypothyroidism and chronic anemia who presents after a syncopal episode earlier today. Recurrent Syncopal episodes: Likely secondary to orthostatic hypotension DD: could have autonomic component from small vessel ischemic disease Positive Tilt Table test Check orthostatics EEG: moderate encephalopathy of nonspecific etiology. No electrographic seizures or epileptiform discharges Poor oral intake, Trace ketones on UA H/O persistent PVCs on EKG Last 2016 Echo with EF of 65% Update ECHO Appreciate Cardiology Input Continue to Monitor on telemetry Given IVF Compression stockings Would consider Orthostatic meds Altered mental status: Could be progression of dementia H/O severe dementia Per , is more confused right now than at baseline CT head without acute findings UA, CXR normal Will consider neuro consult check TSH, B12 Advanced dementia: Secondary to small vessel ischemic disease Brain MRI in 2016 with generalized atrophy, no acute findings Cont home meds HLD: Continue statin Hypothyroidism: Continue levothyroxine Check TSH, Free T4 Chronic anemia: Hb at baseline DVT Px: SQ heparin Code status: DNR per discussion with (POA) on admission Disposition: May need placement Vs Home Health PT/OT social security specialist consulted PCP: [facility] Vital Signs: Date Time Temp Pulse Resp B/P (MAP) Pulse Ox O2 Delivery O2 Flow Rate FiO2 09/24/17 11:59 Room Air 09/24/17 11:31 37.0 78 18 109/76 (87) 96 Room Air 09/24/17 11:30 37.0 90 18 122/77 (92) 96 Room Air 09/24/17 11:28 37.0 66 16 119/79 (92) 95 Room Air 09/24/17 07:45 Room Air 09/24/17 07:35 36.2 73 16 125/75 (92) 96 Room Air 09/24/17 05:20 36.9 86 17 144/84 (104) 96 Room Air 09/24/17 04:00 Room Air 09/24/17 00:00 Room Air 09/23/17 23:48 36.9 90 17 136/81 (99) 98 Room Air 09/23/17 20:00 Room Air 09/23/17 18:30 36.9 71 18 135/79 99 Room Air 09/23/17 17:52 59 20 134/93 99 Room Air 09/23/17 15:59 75 20 121/77 96 Room Air 09/23/17 15:58 75 121/77 74 141/80 110 120/84 09/23/17 14:26 37.0 67 18 167/71 97 Room Air 09/23/17 14:10 69 18 148/70 94 Room Air 09/23/17 14:04 71 09/23/17 13:57 94 Room Air 09/23/17 13:09 37.0 65 16 137/82 96 Room Air Lab Results: Results Past 24 Hours Test 09/23/17 13:45 09/23/17 13:51 09/23/17 14:05 09/24/17 05:16 Range/Units White Blood Count 10.70 6.85 4.8-10.8 K/uL Red Blood Count 6.27 5.32 4.2-5.4 M/uL Hemoglobin 11.9 10.3 12.0-16.0 g/dL Hematocrit 37.3 32.0 37-47 % Mean Corpuscular Volume 59.5 60.2 80-100 fL Mean Corpuscular Hemoglobin 19.0 19.4 25-34 pg Mean Corpuscular Hemoglobin Concent 31.9 32.2 32-36 g/dl RDW Standard Deviation 34.9 35.9 36.4-46.3 fL RDW Coefficient of Variation 16.7 16.8 11.5-14.5 % Platelet Count 239 228 130-400 K/uL Prothrombin Time 10.7 9.0-12.0 SECONDS Prothromb Time International Ratio 1.0 0.9-1.1 Sodium Level 138 143 136-145 mmol/L Potassium Level 3.3 4.0 3.5-5.1 mmol/L Chloride Level 104 112 98-107 mmol/L Carbon Dioxide Level 29 26 21-32 mmol/L Anion Gap 5.0 5.0 3-11 mmol/L Blood Urea Nitrogen 21 13 7-18 mg/dl Creatinine 0.97 0.80 0.60-1.20 mg/dl Estimated GFR () 72.5 91.6 Estimated GFR (Non- 62.6 79.0 BUN/Creatinine Ratio 22.1 16.5 10-20 Random Glucose 100 91 70-99 mg/dl Calcium Level 9.0 8.4 8.5-10.1 mg/dl Magnesium Level 2.4 1.8-2.4 mg/dl Total Bilirubin 0.6 0.2-1 mg/dl Aspartate Amino Transf (AST/SGOT) 32 15-37 U/L Alanine Aminotransferase (ALT/SGPT) 33 12-78 U/L Alkaline Phosphatase 94 45-117 U/L Total Protein 7.4 6.4-8.2 gm/dl Albumin 3.8 3.4-5.0 gm/dl Globulin 3.6 2.5-4.0 gm/dl Albumin/Globulin Ratio 1.1 0.9-2 Bedside Troponin I < 0.030 0-0.045 ng/ml Urine Color DK YELLOW Urine Appearance CLEAR CLEAR Urine pH 5.5 4.5-7.5 Urine Specific Bond 1.034 1.000-1.030 Urine Protein TRACE NEG Urine Glucose (UA) NEG NEG Urine Ketones TRACE NEG Urine Occult Blood NEG NEG Urine Nitrite NEG NEG Urine Bilirubin NEG NEG Urine Urobilinogen NEG NEG Urine Leukocyte Esterase NEG NEG Urine WBC (Auto) 1-5 0-5 /hpf Urine RBC (Auto) 0-4 0-4 /hpf Urine Hyaline Casts (Auto) 1-5 0-5 /lpf Urine Epithelial Cells (Auto) 10-20 0-5 /lpf Urine Bacteria (Auto) NEG NEG Activated Partial Thromboplast Time 26.7 21.0-31.0 SECONDS Partial Thromboplastin Ratio 1.0 Est Creatinine Clear Calc Drug Dose 73.4 ml/min
[2017-09-24] MEDS: DOXEPIN HCL 75 MG CAP PO SCH (20:35)
[2017-09-24] MEDS: SIMVASTATIN 20 MG TAB PO SCH (20:35)
[2017-09-24] MEDS: DONEPEZIL HCL 23 MG TAB PO SCH (20:35)
--- NOTE | 2017-09-24 22:25 | ECHOCARDIOGRAM REPORT ---
*NOTICE TO RECEIVING LIBERTARIAN AGENCY This information is strictly Confidential and protected under [place] law. [place] law prohibits you from making any further disclosure of this information unless further disclosure is expressly permitted by the written consent of the person to whom it pertains or is authorized by law. A general authorization for the release of medical or other information is not sufficient for this purpose. Hospital accepts no responsibility if the information is made available to any other person, INCLUDING THE PATIENT. Interpretation Summary * Name: JODY RUSSELL Study Date: 09/24/2017 12:55 PM BP: 109/76 mmHg * Patient Location: .[facility]\S\N285\S\2 HR: 78 * : 1955 (M/d/yyyy) Gender: Female Height: 64 in * Age: 62 yrs Ethnicity: [place] Weight: 170 lb * Ordering Physician: Don Franklin * Referring Physician: No Doctor, Assigned * Performed By: Henrry Moran RCS * * Reason For Study: SYNCOPE * BSA: 1.8 m2 * -- Conclusions -- * The left ventricle is normal in size. * There is borderline concentric left ventricular hypertrophy. * Left ventricular systolic function is normal. * The left ventricular wall motion is normal. * Ejection Fraction = 60-65%. * No valvular disease * There is no pericardial effusion. * The aortic root is normal size. Procedure Details * A complete two-dimensional transthoracic echocardiogram was performed (2D, M-mode, Doppler and color flow Doppler). Left Ventricle * The left ventricle is normal in size. * There is borderline concentric left ventricular hypertrophy. * Ejection Fraction = 60-65%. * Left ventricular systolic function is normal. * The left ventricular wall motion is normal. Right Ventricle * The right ventricle is normal in size and function. Atria * The left atrial size is normal. * Right atrial size is normal. * No ASD detected; PFO is not assessed. Mitral Valve * The mitral valve anatomy is normal. * There is no mitral valve stenosis. * There is trace mitral regurgitation. Tricuspid Valve * The tricuspid valve anatomy is normal. * There is no tricuspid stenosis. * There is trace tricuspid regurgitation. Aortic Valve * The aortic valve is trileaflet. * No hemodynamically significant valvular aortic stenosis. * No aortic regurgitation is present. Pulmonic Valve * The pulmonic valve is not well visualized. Great Vessels * The aortic root is normal size. Pericardium/Pleural * There is no pericardial effusion. Great Vessels * Normal inferior vena cava diameter and respiratory variation suggests normal central venous pressure. MMode 2D Measurements and Calculations IVSd 0.85 cm IVSs 1.1 cm LVIDd 5.6 cm LVIDs 3.7 cm LVPWd 0.93 cm LVPWs 1.2 cm IVS/LVPW 0.91 FS 32.9 % EDV(Teich) 150.6 ml ESV(Teich) 59.0 ml EF(Teich) 60.8 % EDV(cubed) 171.0 ml ESV(cubed) 51.6 ml EF(cubed) 69.8 % % IVS thick 34.0 % % LVPW thick 31.4 % LV mass(C)d 185.4 grams LV mass(C)dI 101.6 grams/m\S\2 LV mass(C)s 144.5 grams LV mass(C)sI 79.1 grams/m\S\2 SV(Teich) 91.6 ml SI(Teich) 50.2 ml/m\S\2 SV(cubed) 119.4 ml SI(cubed) 65.4 ml/m\S\2 Ao root diam 2.7 cm Ao root area 5.9 cm\S\2 ACS 1.6 cm LA dimension 3.3 cm asc Aorta Diam 2.9 cm LA/Ao 1.2 EDV(MOD-sp4) 57.0 ml ESV(MOD-sp4) 24.0 ml EF(MOD-sp4) 57.9 % EDV(MOD-sp2) 57.0 ml ESV(MOD-sp2) 24.0 ml EF(MOD-sp2) 57.9 % SV(MOD-sp4) 33.0 ml SI(MOD-sp4) 18.1 ml/m\S\2 SV(MOD-sp2) 33.0 ml SI(MOD-sp2) 18.1 ml/m\S\2 Doppler Measurements and Calculations MV E max brenda 74.7 cm/sec MV A max brenda 61.1 cm/sec MV E/A 1.2 MV P1/2t max brenda 77.4 cm/sec MV P1/2t 73.3 msec MVA(P1/2t) 3.0 cm\S\2 MV dec slope 309.2 cm/sec\S\2 MV dec time 0.26 sec Ao V2 max 157.9 cm/sec Ao max PG 10.0 mmHg Ao max PG (full) 4.1 mmHg LV V1 max PG 5.9 mmHg LV V1 max 121.0 cm/sec PA V2 max 87.5 cm/sec PA max PG 3.1 mmHg TR max brenda 253.2 cm/sec
[2017-09-25] VITALS (9 sets, daily range): BP systolic 112–156; BP diastolic 73–81; PULSE 59–73; TEMP 36.6–37.2; O2SAT 91–97
[2017-09-25] MEDS: LEVOTHYROXINE 50 MCG TAB PO SCH (05:49)
[2017-09-25] MEDS: HEPARIN SOD 5000 UNIT/0.5 ML CARP SQ SCH ×3 (05:51→20:47)
[2017-09-25 07:40] LABS: CALCIUM 8.6 mg/dl (8.5-10.1); CREATININE 0.79 mg/dl (0.60-1.20); POTASSIUM 3.4 mmol/L (3.5-5.1)
[2017-09-25] MEDS: ASPIRIN 81 MG ECTAB PO SCH (08:19)
[2017-09-25] MEDS: CEROVITE ADV FORMULA TAB PO SCH (08:19)
[2017-09-25] MEDS: MEMANTINE 10 MG TAB PO SCH ×2 (08:19→20:39)
[2017-09-25] MEDS: DOCUSATE SODIUM 100 MG CAP PO SCH ×2 (08:19→20:39)
[2017-09-25] MEDS: SERTRALINE HCL 100 MG TAB PO SCH (08:19)
[2017-09-25] MEDS ORDERED: FLUDROCORTISONE ACETATE 0.1 MG TAB PO SCH (09:00)
--- NOTE | 2017-09-25 14:22 | Progress Note ---
Internal Med Progress Note Date of Service: Sep 25, 2017. Provider Documentation: SUBJECTIVE: Seen and examined at bedside History is limited secondary to Dementia Denies chest pain, SOB, dizziness Family at bedside Positive Orthostatics, started on Florinef OBJECTIVE: Vital Signs-as noted below Physical Exam: Vitals signs as noted above General Appearance:Moderately built and nourished, no apparent distress Head: normocephalic, Atraumatic Eyes: normal inspection, EOMI, PERRL Neck: supple, Trachea midline Respiratory/Chest: Normal breath sounds, CTA Cardiovascular: S1, S2, No murmur Abdomen/GI:Soft, Non tender, Bowel sounds present Extremities/Musculoskelatal:normal inspection, no edema Neurologic/Psych:grossly no focal neurological deficits Skin: normal color, warm Lab data as noted below. ASSESSMENT & PLAN: Patient is a 62 yr female with a PMH of advanced dementia (2/2 small vessel ischemic disease), HTN (not on meds 2/2 orthostasis), H/O CVA, Recurrent syncopal, HLD, hypothyroidism and chronic anemia who presents after a syncopal episode earlier today. Recurrent Syncopal episodes: Likely secondary to orthostatic hypotension DD: could have autonomic component from small vessel ischemic disease Positive Tilt Table test Positive orthostatics EEG: moderate encephalopathy of nonspecific etiology. No electrographic seizures or epileptiform discharges Poor oral intake, Trace ketones on UA H/O persistent PVCs on EKG Last 2016 Echo with EF of 65% ECHO as below Appreciate Cardiology Input Continue to Monitor on telemetry IVF discontinued Started on Florinef Compression stockings Hypokalemia: Replace and monitor May need replacement upon discharge since also on Florinef Altered mental status: Could be progression of dementia H/O severe dementia Per , is more confused right now than at baseline CT head without acute findings UA, CXR normal TSH, B12: Normal Advanced dementia: Secondary to small vessel ischemic disease Brain MRI in 2016 with generalized atrophy, no acute findings Cont home meds HLD: Continue statin Hypothyroidism: Continue levothyroxine Check TSH, Free T4 Chronic anemia: Hb at baseline DVT Px: SQ heparin Code status: DNR per discussion with (POA) on admission Disposition: May need placement Vs Home Health PT/OT psychiatric social worker consulted PCP: [facility] Vital Signs: Date Time Temp Pulse Resp B/P (MAP) Pulse Ox O2 Delivery O2 Flow Rate FiO2 09/25/17 12:00 91 Room Air 09/25/17 11:52 37.0 70 20 125/81 (96) 95 09/25/17 08:00 91 Room Air 09/25/17 07:35 36.9 59 18 138/73 (94) 91 Room Air 09/25/17 05:14 36.6 73 21 156/79 (104) 97 Room Air 09/25/17 04:00 Room Air 09/25/17 00:00 Room Air 09/24/17 23:52 36.7 88 22 145/85 (105) 94 Room Air 09/24/17 20:00 Room Air 09/24/17 19:23 37.1 86 18 154/83 (106) 96 150/73 (98) 107/58 (74) 09/24/17 16:00 Room Air 09/24/17 15:37 36.5 60 16 130/80 (97) 97 Lab Results: Results Past 24 Hours Test 09/25/17 06:30 Range/Units Sodium Level 141 136-145 mmol/L Potassium Level 3.4 3.5-5.1 mmol/L Chloride Level 110 98-107 mmol/L Carbon Dioxide Level 26 21-32 mmol/L Anion Gap 5.0 3-11 mmol/L Blood Urea Nitrogen 13 7-18 mg/dl Creatinine 0.79 0.60-1.20 mg/dl Est Creatinine Clear Calc Drug Dose 73.2 ml/min Estimated GFR () 93.0 Estimated GFR (Non- 80.2 BUN/Creatinine Ratio 16.7 10-20 Random Glucose 98 70-99 mg/dl Calcium Level 8.6 8.5-10.1 mg/dl Magnesium Level 2.3 1.8-2.4 mg/dl Vitamin B12 Level 869 211-911 pg/mL Thyroid Stimulating Hormone (TSH) 2.260 0.300-4.500 uIu/ml Free Thyroxine 1.52 0.80-1.60 ng/dl
[2017-09-25] MEDS ORDERED: POTASSIUM CHLORIDE 20 MEQ/15 ML UDC PO ONE (15:00)
--- NOTE | 2017-09-25 17:22 | Cardiology Follow-Up ---
Subjective Date of Service: Sep 25, 2017. Pt evaluation today including: conversation w/ patient, conversation w/ family , physical exam, lab review, review of studies, review of inpatient medication list History of Present Illness This is a very pleasant 62-year-old woman who I believe has Alzheimer's and significant dementia and therefore her is the primary historian, he is a nurse. He reports that she was diagnosed as having a stroke a number of years ago, including visual field defects, however based on her neurologic evaluation her main problem is Alzheimer's type dementia. She has been having difficulty with loss of consciousness for several years, the episodes however have been becoming more frequent. She did have a tilt test performed 09/04/2016, this documented a significant drop in blood pressure and an increase in heart rate consistent with orthostasis although loss of consciousness was not observed. This was however felt to be a likely cause of her loss of consciousness. She also has history of frequent premature ventricular beats and was on amiodarone, but no longer is. She was brought to the emergency room on 09/23/2017 by her due to having further episodes of loss of consciousness requiring her to catch her. This occurred on 09/20/2017 and 09/24/2017. She has also been having worsening of her confusion. She was therefore admitted. Orthostatic vital signs suggested significant orthostasis with a nearly 50 mm drop in systolic blood pressure. She was started on Florinef 0.1 mg daily, starting today. She can provide virtually no history. Her is with her and notes no change in her condition. Social History Smoking Status: Never Smoker History of Alcohol Use: No Review of Systems Respiratory: No cough, No wheezing, No shortness of breath, No dyspnea on exertion Cardiac: No chest pain, No orthopnea, No PND, No edema, No palpitations Her history is unreliable due to dementia, therefore I don't believe her review of systems will be reliable Medications Cardiovascular: Item Value Date Time Fludrocortisone 0.1 mg 09/25/17 0900 Acetate QAM/PO 09/25/17818 (Florinef Tab) Aspirin 81 mg 09/24/17 0900 (Ecotrin Tab) DAILY/PO 09/25/17818 Simvastatin 20 mg 09/23/17 2100 (Zocor Tab) HS/PO 09/24/172034 Objective Vital Signs Past 12 Hours Date Time Temp Pulse Resp B/P (MAP) Pulse Ox O2 Delivery O2 Flow Rate FiO2 09/25/17 16:05 37.0 70 18 112/74 (87) 97 09/25/17 16:01 91 Room Air 09/25/17 12:00 91 Room Air 09/25/17 11:52 37.0 70 20 125/81 (96) 95 09/25/17 08:00 91 Room Air 09/25/17 07:35 36.9 59 18 138/73 (94) 91 Room Air 09/25/17 05:14 36.6 73 21 156/79 (104) 97 Room Air Last Recorded Weight-Kilograms: 74.900 Intake & Output 8-Hour Column 09/25/17 09/26/17 09/26/17 16:00 00:00 08:00 Intake Total 200 ml Output Total 200 ml Balance 0 ml 24-Hour Column 09/26/17 08:00 Intake Total 200 ml Output Total 200 ml Balance 0 ml Physical Exam Constitutional: General Apperance: heathly-appearing Level of Distress: NAD Lungs: Respiratory effort: no dyspnea, good air movement Auscultation: breath sounds normal, no wheezing Cardiovascular: Heart Auscultation: RRR, no murmurs, no rubs, no gallops Peripheral Pulses: Bruits: none appreciated Extremities: no edema Data Laboratory Results: Last 24 Hours Test 09/25/17 06:30 Sodium Level 141 mmol/L Potassium Level 3.4 mmol/L Chloride Level 110 mmol/L Carbon Dioxide Level 26 mmol/L Anion Gap 5.0 mmol/L Blood Urea Nitrogen 13 mg/dl Creatinine 0.79 mg/dl Est Creatinine Clear Calc Drug Dose 73.2 ml/min Estimated GFR () 93.0 Estimated GFR (Non- 80.2 BUN/Creatinine Ratio 16.7 Random Glucose 98 mg/dl Calcium Level 8.6 mg/dl Magnesium Level 2.3 mg/dl Vitamin B12 Level 869 pg/mL Thyroid Stimulating Hormone (TSH) 2.260 uIu/ml Free Thyroxine 1.52 ng/dl Imaging: An echocardiogram shows normal left ventricular function, mild left ventricular hypertrophy. Telemetry reviewed: Sinus rhythm, PVCs, no significant arrhythmia Assessment and Plan #1. Loss of consciousness: The most likely explanation is orthostasis, as we have documented in the past. Perhaps this is related to her neurologic issue. She does have premature ventricular beats and had been on amiodarone for these but we have never documented an arrhythmia as a cause of her events, but it is possible. I would recommend keeping her on telemetry while she is here to see whether she has any other arrhythmias. She cannot provide a history of palpitations. I am going to increase her Florinef for tomorrow, although it will take some time to work. #2. PVCs: She has long-standing PVCs, to my knowledge we have never documented a more significant arrhythmia but she could have nonsustained ventricular tachycardia given that these PVCs are suggestive of a right ventricular outflow tract origin (based on 12-lead morphology). If we don't have a good explanation for her episodes we could consider some type of monitoring to document her rhythm during episodes. She has not developed a cardiomyopathy from her PVCs, so treatment is not essential. Thank you for allowing me to participate in her care.
[2017-09-25] MEDS: DONEPEZIL HCL 23 MG TAB PO SCH (20:39)
[2017-09-25] MEDS: DOXEPIN HCL 75 MG CAP PO SCH (20:40)
[2017-09-25] MEDS: SIMVASTATIN 20 MG TAB PO SCH (21:24)
[2017-09-26] VITALS (8 sets, daily range): BP systolic 111–136; BP diastolic 68–79; PULSE 69–101; TEMP 36.3–37.1; O2SAT 94–100
[2017-09-26] MEDS: HEPARIN SOD 5000 UNIT/0.5 ML CARP SQ SCH ×3 (06:27→20:27)
[2017-09-26] MEDS: LEVOTHYROXINE 50 MCG TAB PO SCH (06:40)
[2017-09-26 07:02] LABS: CALCIUM 8.9 mg/dl (8.5-10.1); CREATININE 0.81 mg/dl (0.60-1.20)
[2017-09-26] MEDS: MEMANTINE 10 MG TAB PO SCH ×2 (12:33→20:26)
[2017-09-26] MEDS: FLUDROCORTISONE ACETATE 0.1 MG TAB PO SCH (12:33)
[2017-09-26] MEDS: CEROVITE ADV FORMULA TAB PO SCH (12:57)
[2017-09-26] MEDS: ASPIRIN 81 MG ECTAB PO SCH (12:57)
[2017-09-26] MEDS: SERTRALINE HCL 100 MG TAB PO SCH (12:57)
[2017-09-26] MEDS: DOCUSATE SODIUM 100 MG CAP PO SCH ×2 (12:57→20:26)
--- NOTE | 2017-09-26 15:15 | Progress Note ---
Internal Med Progress Note Date of Service: Sep 26, 2017. Provider Documentation: SUBJECTIVE: Seen and examined at bedside History is limited secondary to Dementia No new complaints Denies chest pain, SOB, dizziness Family at bedside Florinef dose increased Not safe to be discharged home as high risk for fall OBJECTIVE: Vital Signs-as noted below Physical Exam: Vitals signs as noted above General Appearance:Moderately built and nourished, no apparent distress Head: normocephalic, Atraumatic Eyes: normal inspection, EOMI, PERRL Neck: supple, Trachea midline Respiratory/Chest: Normal breath sounds, CTA Cardiovascular: S1, S2, No murmur Abdomen/GI:Soft, Non tender, Bowel sounds present Extremities/Musculoskelatal:normal inspection, no edema Neurologic/Psych:grossly no focal neurological deficits Skin: normal color, warm Lab data as noted below. ASSESSMENT & PLAN: Patient is a 62 yr female with a PMH of advanced dementia (2/2 small vessel ischemic disease), HTN (not on meds 2/2 orthostasis), H/O CVA, Recurrent syncopal, HLD, hypothyroidism and chronic anemia who presents after a syncopal episode earlier today. Recurrent Syncopal episodes: Likely secondary to orthostatic hypotension DD: could have autonomic component from small vessel ischemic disease Positive Tilt Table test Positive orthostatics EEG: moderate encephalopathy of nonspecific etiology. No electrographic seizures or epileptiform discharges Poor oral intake, Trace ketones on UA H/O persistent PVCs on EKG Last 2015 Echo with EF of 65% ECHO as below Appreciate Cardiology Input Continue to Monitor on telemetry IVF discontinued Continue Florinef 0.2mg daily Compression stockings Not safe to be discharged home as high risk for falls PT/OT Hypokalemia: monitor May need replacement upon discharge since also on Florinef Altered mental status: Could be progression of dementia H/O severe dementia Per , is more confused right now than at baseline CT head without acute findings UA, CXR normal TSH, B12: Normal Advanced dementia: Secondary to small vessel ischemic disease Brain MRI in 2016 with generalized atrophy, no acute findings Cont home meds HLD: Continue statin Hypothyroidism: Continue levothyroxine Check TSH, Free T4 Chronic anemia: Hb at baseline DVT Px: SQ heparin Code status: DNR per discussion with (POA) on admission Disposition: May need placement Vs Home Health PT/OT mental health social worker consulted PCP: [facility] Vital Signs: Date Time Temp Pulse Resp B/P (MAP) Pulse Ox O2 Delivery O2 Flow Rate FiO2 09/26/17 13:21 36.3 69 20 118/75 (89) 95 09/26/17 12:00 95 Room Air 09/26/17 08:00 100 Room Air 09/26/17 07:37 36.7 87 20 120/70 (87) 100 09/26/17 04:00 Room Air 09/26/17 02:44 36.7 93 19 127/79 (95) 96 Room Air 09/26/17 00:00 Room Air 09/25/17 21:15 95 Room Air 09/25/17 19:57 37.2 65 18 129/81 (97) 95 Room Air 09/25/17 16:05 37.0 70 18 112/74 (87) 97 09/25/17 16:01 91 Room Air Lab Results: Results Past 24 Hours Test 09/26/17 05:57 Range/Units Sodium Level 139 136-145 mmol/L Potassium Level 4.0 3.5-5.1 mmol/L Chloride Level 107 98-107 mmol/L Carbon Dioxide Level 26 21-32 mmol/L Anion Gap 6.0 3-11 mmol/L Blood Urea Nitrogen 12 7-18 mg/dl Creatinine 0.81 0.60-1.20 mg/dl Est Creatinine Clear Calc Drug Dose 71.5 ml/min Estimated GFR () 90.2 Estimated GFR (Non- 77.8 BUN/Creatinine Ratio 14.5 10-20 Random Glucose 103 70-99 mg/dl Calcium Level 8.9 8.5-10.1 mg/dl Magnesium Level 2.4 1.8-2.4 mg/dl
[2017-09-26] MEDS: DOXEPIN HCL 75 MG CAP PO SCH (20:26)
[2017-09-26] MEDS: DONEPEZIL HCL 23 MG TAB PO SCH (20:26)
[2017-09-26] MEDS: SIMVASTATIN 20 MG TAB PO SCH (20:26)
[2017-09-27] VITALS (7 sets, daily range): BP systolic 101–149; BP diastolic 65–83; PULSE 68–93; TEMP 36.4–37.1; O2SAT 95–100
[2017-09-27] MEDS: LEVOTHYROXINE 50 MCG TAB PO SCH (05:31)
[2017-09-27] MEDS: HEPARIN SOD 5000 UNIT/0.5 ML CARP SQ SCH ×3 (05:33→21:50)
[2017-09-27 06:47] LABS: CALCIUM 8.9 mg/dl (8.5-10.1); CREATININE 0.84 mg/dl (0.60-1.20); POTASSIUM 3.6 mmol/L (3.5-5.1)
[2017-09-27] MEDS: SERTRALINE HCL 100 MG TAB PO SCH (08:14)
[2017-09-27] MEDS ORDERED: LACTATED RINGER'S 1000ML 1,000 ML IV ONE (08:15)
[2017-09-27] MEDS: CEROVITE ADV FORMULA TAB PO SCH (08:16)
[2017-09-27] MEDS: DOCUSATE SODIUM 100 MG CAP PO SCH ×2 (08:16→20:11)
[2017-09-27] MEDS: MEMANTINE 10 MG TAB PO SCH ×2 (08:17→20:12)
[2017-09-27] MEDS: ASPIRIN 81 MG ECTAB PO SCH (08:17)
[2017-09-27] MEDS: FLUDROCORTISONE ACETATE 0.1 MG TAB PO SCH (08:17)
[2017-09-27] MEDS ORDERED: POTASSIUM CHLORIDE 10 MEQ TABCR PO ONE (14:00)
--- NOTE | 2017-09-27 14:18 | Progress Note ---
Internal Med Progress Note Date of Service: Sep 27, 2017. Provider Documentation: SUBJECTIVE: Seen and examined at bedside History is limited secondary to Dementia Poor appetite per family at bedside Denies chest pain, SOB, dizziness Not safe to be discharged home as high risk for fall OBJECTIVE: Vital Signs-as noted below Physical Exam: Vitals signs as noted above General Appearance:Moderately built and nourished, no apparent distress Head: normocephalic, Atraumatic Eyes: normal inspection, EOMI, PERRL Neck: supple, Trachea midline Respiratory/Chest: Normal breath sounds, CTA Cardiovascular: S1, S2, No murmur Abdomen/GI:Soft, Non tender, Bowel sounds present Extremities/Musculoskelatal:normal inspection, no edema Neurologic/Psych:grossly no focal neurological deficits Skin: normal color, warm Lab data as noted below. ASSESSMENT & PLAN: Patient is a 62 yr female with a PMH of advanced dementia (2/2 small vessel ischemic disease), HTN (not on meds 2/2 orthostasis), H/O CVA, Recurrent syncopal, HLD, hypothyroidism and chronic anemia who presents after a syncopal episode earlier today. Recurrent Syncopal episodes: Likely secondary to orthostatic hypotension DD: could have autonomic component from small vessel ischemic disease Positive Tilt Table test Positive orthostatics EEG: moderate encephalopathy of nonspecific etiology. No electrographic seizures or epileptiform discharges Poor oral intake, Trace ketones on UA H/O persistent PVCs on EKG Last 2016 Echo with EF of 65% ECHO as below Appreciate Cardiology Input Continue to Monitor on telemetry IVF discontinued Continue Florinef 0.2mg daily Compression stockings Not safe to be discharged home as high risk for falls PT/OT Hypokalemia: monitor May need replacement upon discharge since also on Florinef Altered mental status: Could be progression of dementia H/O severe dementia Per , is more confused right now than at baseline CT head without acute findings UA, CXR normal TSH, B12: Normal Advanced dementia: Secondary to small vessel ischemic disease Brain MRI in 2016 with generalized atrophy, no acute findings Cont home meds HLD: Continue statin Hypothyroidism: Continue levothyroxine Check TSH, Free T4 Chronic anemia: Hb at baseline DVT Px: SQ heparin Code status: DNR per discussion with (POA) on admission Disposition: May need placement Vs Home Health PT/OT social insurance adviser consulted PCP: [facility] Vital Signs: Date Time Temp Pulse Resp B/P (MAP) Pulse Ox O2 Delivery O2 Flow Rate FiO2 09/27/17 12:00 100 Room Air 09/27/17 11:50 37.1 68 18 101/65 (77) 98 Room Air 09/27/17 08:07 36.4 75 18 126/83 (97) 97 Room Air 09/27/17 08:00 100 Room Air 09/27/17 04:59 36.7 93 18 149/82 (104) 97 Room Air 09/27/17 04:00 Room Air 09/26/17 23:30 Room Air 09/26/17 23:28 36.6 101 20 136/76 (96) 94 Room Air 09/26/17 20:00 Room Air 09/26/17 19:29 37.1 84 18 128/68 (88) 94 Room Air 09/26/17 16:00 Room Air 09/26/17 15:59 36.9 89 18 111/77 (88) 95 Room Air Lab Results: Results Past 24 Hours Test 09/27/17 05:45 Range/Units Sodium Level 141 136-145 mmol/L Potassium Level 3.6 3.5-5.1 mmol/L Chloride Level 105 98-107 mmol/L Carbon Dioxide Level 28 21-32 mmol/L Anion Gap 8.0 3-11 mmol/L Blood Urea Nitrogen 13 7-18 mg/dl Creatinine 0.84 0.60-1.20 mg/dl Est Creatinine Clear Calc Drug Dose 69.0 ml/min Estimated GFR () 86.3 Estimated GFR (Non- 74.5 BUN/Creatinine Ratio 15.4 10-20 Random Glucose 97 70-99 mg/dl Calcium Level 8.9 8.5-10.1 mg/dl Magnesium Level 2.4 1.8-2.4 mg/dl
[2017-09-27] MEDS: BOOST VANILLA PO SCH ×2 (17:00→20:11)
[2017-09-27] MEDS: DOXEPIN HCL 75 MG CAP PO SCH (20:11)
[2017-09-27] MEDS: SIMVASTATIN 20 MG TAB PO SCH (20:11)
[2017-09-27] MEDS: DONEPEZIL HCL 23 MG TAB PO SCH (20:11)
[2017-09-28] VITALS (7 sets, daily range): BP systolic 112–142; BP diastolic 68–80; PULSE 61–80; TEMP 36.4–37.2; O2SAT 95–98
[2017-09-28] MEDS: LEVOTHYROXINE 50 MCG TAB PO SCH (05:47)
[2017-09-28] MEDS: HEPARIN SOD 5000 UNIT/0.5 ML CARP SQ SCH ×3 (05:49→21:28)
[2017-09-28 07:10] LABS: CALCIUM 8.8 mg/dl (8.5-10.1); CREATININE 0.73 mg/dl (0.60-1.20); POTASSIUM 3.8 mmol/L (3.5-5.1)
[2017-09-28] MEDS: BOOST VANILLA PO SCH ×4 (08:00→20:03)
[2017-09-28] MEDS: CEROVITE ADV FORMULA TAB PO SCH (08:44)
[2017-09-28] MEDS: ASPIRIN 81 MG ECTAB PO SCH (08:44)
[2017-09-28] MEDS: MEMANTINE 10 MG TAB PO SCH ×2 (08:44→20:01)
[2017-09-28] MEDS: SERTRALINE HCL 100 MG TAB PO SCH (08:44)
[2017-09-28] MEDS: DOCUSATE SODIUM 100 MG CAP PO SCH ×2 (08:44→20:01)
[2017-09-28] MEDS: FLUDROCORTISONE ACETATE 0.1 MG TAB PO SCH (08:45)
--- NOTE | 2017-09-28 15:04 | Progress Note ---
Internal Med Progress Note Date of Service: Sep 28, 2017. Provider Documentation: SUBJECTIVE: Seen and examined at bedside History is limited secondary to Dementia at bedside Appetite better today Denies chest pain, SOB, dizziness Not safe to be discharged home as high risk for fall Has bradycardia this morning in 40s, asymptomatic OBJECTIVE: Vital Signs-as noted below Physical Exam: Vitals signs as noted above General Appearance:Moderately built and nourished, no apparent distress Head: normocephalic, Atraumatic Eyes: normal inspection, EOMI, PERRL Neck: supple, Trachea midline Respiratory/Chest: Normal breath sounds, CTA Cardiovascular: S1, S2, No murmur Abdomen/GI:Soft, Non tender, Bowel sounds present Extremities/Musculoskelatal:normal inspection, no edema Neurologic/Psych:grossly no focal neurological deficits Skin: normal color, warm Lab data as noted below. ASSESSMENT & PLAN: Patient is a 62 yr female with a PMH of advanced dementia (2/2 small vessel ischemic disease), HTN (not on meds 2/2 orthostasis), H/O CVA, Recurrent syncopal, HLD, hypothyroidism and chronic anemia who presents after a syncopal episode. Recurrent Syncopal episodes: Likely secondary to orthostatic hypotension DD: could have autonomic component from small vessel ischemic disease Positive Tilt Table test Positive orthostatics EEG: moderate encephalopathy of nonspecific etiology. No electrographic seizures or epileptiform discharges Poor oral intake, Trace ketones on UA H/O persistent PVCs on EKG Last 2015 Echo with EF of 65% ECHO as below Transient sinus bradycardia in 40s noted on 2 occasions but asymptomatic Appreciate Cardiology Input Continue to Monitor on telemetry IVF discontinued Continue Florinef 0.2mg daily Compression stockings Not safe to be discharged home as high risk for falls PT/OT: Recommends inpatient rehab Hypokalemia: monitor May need replacement upon discharge since also on Florinef Altered mental status: Could be progression of dementia H/O severe dementia Per , is more confused right now than at baseline CT head without acute findings UA, CXR normal TSH, B12: Normal Advanced dementia: Secondary to small vessel ischemic disease Brain MRI in 2016 with generalized atrophy, no acute findings Continue home meds HLD: Continue statin Hypothyroidism: Continue levothyroxine Check TSH, Free T4 Chronic anemia: Hb at baseline DVT Px: SQ heparin Code status: DNR per discussion with (POA) on admission Disposition: Needs Rehab placement PT/OT home health care social worker consulted PCP: [facility] Vital Signs: Date Time Temp Pulse Resp B/P (MAP) Pulse Ox O2 Delivery O2 Flow Rate FiO2 09/28/17 14:47 69 97 09/28/17 12:06 36.6 69 20 125/78 (94) 97 Room Air 09/28/17 12:00 Room Air 09/28/17 07:50 Room Air 09/28/17 07:12 36.7 61 18 115/73 (87) 97 Room Air 09/28/17 04:00 Room Air 09/28/17 04:00 36.4 79 16 142/80 (100) 98 Room Air 09/28/17 00:00 Room Air 09/28/17 00:00 36.8 71 16 122/80 (94) 95 Room Air 09/27/17 20:00 Room Air 09/27/17 19:24 37.0 72 18 132/66 (88) 95 Room Air 09/27/17 16:00 Room Air 09/27/17 15:28 36.5 73 20 101/65 (77) 98 Room Air Lab Results: Results Past 24 Hours Test 09/28/17 06:04 Range/Units Sodium Level 142 136-145 mmol/L Potassium Level 3.8 3.5-5.1 mmol/L Chloride Level 106 98-107 mmol/L Carbon Dioxide Level 29 21-32 mmol/L Anion Gap 6.0 3-11 mmol/L Blood Urea Nitrogen 18 7-18 mg/dl Creatinine 0.73 0.60-1.20 mg/dl Est Creatinine Clear Calc Drug Dose 80.8 ml/min Estimated GFR () 102.3 Estimated GFR (Non- 88.3 BUN/Creatinine Ratio 24.8 10-20 Random Glucose 94 70-99 mg/dl Calcium Level 8.8 8.5-10.1 mg/dl Magnesium Level 2.5 1.8-2.4 mg/dl
[2017-09-28] MEDS: DONEPEZIL HCL 23 MG TAB PO SCH (20:00)
[2017-09-28] MEDS: SIMVASTATIN 20 MG TAB PO SCH (20:01)
[2017-09-28] MEDS: DOXEPIN HCL 75 MG CAP PO SCH (20:01)
[2017-09-29] VITALS (7 sets, daily range): BP systolic 124–144; BP diastolic 67–81; PULSE 65–91; TEMP 36.3–37.3; O2SAT 93–98
[2017-09-29] MEDS: HEPARIN SOD 5000 UNIT/0.5 ML CARP SQ SCH ×3 (05:51→20:50)
[2017-09-29] MEDS: LEVOTHYROXINE 50 MCG TAB PO SCH (05:52)
[2017-09-29 07:02] LABS: CREATININE 0.84 mg/dl (0.60-1.20); POTASSIUM 3.8 mmol/L (3.5-5.1)
[2017-09-29] MEDS: BOOST VANILLA PO SCH ×4 (08:00→20:41)
[2017-09-29] MEDS: ASPIRIN 81 MG ECTAB PO SCH (08:44)
[2017-09-29] MEDS: CEROVITE ADV FORMULA TAB PO SCH (08:44)
[2017-09-29] MEDS: FLUDROCORTISONE ACETATE 0.1 MG TAB PO SCH (08:44)
[2017-09-29] MEDS: MEMANTINE 10 MG TAB PO SCH ×2 (08:44→20:30)
[2017-09-29] MEDS: DOCUSATE SODIUM 100 MG CAP PO SCH ×2 (08:44→20:30)
[2017-09-29] MEDS: SERTRALINE HCL 100 MG TAB PO SCH (08:44)
--- NOTE | 2017-09-29 16:47 | Cardiology Follow-Up ---
Subjective Date of Service: Sep 29, 2017. Pt evaluation today including: conversation w/ patient, conversation w/ family , physical exam, chart review, conversation w/ attending History of Present Illness Patient was resting in bed. She did respond to questions but her comprehension was questionable. Most of the history was obtained from the . She has not been ambulatory. She did eat a good lunch. She has not been complaining of anything specific. She is anxious to get out of bed and ambulate. Social History Smoking Status: Never Smoker History of Alcohol Use: No Review of Systems Respiratory: No cough, No wheezing, No shortness of breath, No dyspnea on exertion Cardiac: No chest pain, No orthopnea, No PND, No edema, No palpitations Her history is unreliable due to dementia, therefore I don't believe her review of systems will be reliable Objective Vital Signs Past 12 Hours Date Time Temp Pulse Resp B/P (MAP) Pulse Ox O2 Delivery O2 Flow Rate FiO2 09/29/17 16:00 Room Air 09/29/17 14:54 36.8 73 18 144/73 (96) 94 Room Air 09/29/17 12:00 Room Air 09/29/17 11:26 36.8 76 18 124/67 (86) 97 Room Air 09/29/17 09:15 36.3 91 16 129/81 (97) 93 Room Air 09/29/17 09:15 Room Air 09/29/17 08:00 Room Air 09/29/17 05:19 36.8 67 20 144/79 (100) 96 Room Air Last Recorded Weight-Kilograms: 77.400 Intake & Output 8-Hour Column 09/29/17 09/29/17 09/30/17 15:59 23:59 07:59 Intake Total 360 ml Output Total 500 ml Balance -140 ml 24-Hour Column 09/30/17 07:59 Intake Total 360 ml Output Total 500 ml Balance -140 ml Physical Exam Constitutional: General Apperance: heathly-appearing Level of Distress: NAD Lungs: Respiratory effort: no dyspnea, good air movement Auscultation: breath sounds normal, no wheezing Cardiovascular: Heart Auscultation: RRR, no murmurs, no rubs, no gallops Peripheral Pulses: Bruits: none appreciated Extremities: no edema Data Laboratory Results: Last 24 Hours Test 09/29/17 06:06 Sodium Level 142 mmol/L Potassium Level 3.8 mmol/L Chloride Level 107 mmol/L Carbon Dioxide Level 30 mmol/L Anion Gap 5.0 mmol/L Blood Urea Nitrogen 23 mg/dl Creatinine 0.84 mg/dl Est Creatinine Clear Calc Drug Dose 70.2 ml/min Estimated GFR () 86.3 Estimated GFR (Non- 74.5 BUN/Creatinine Ratio 26.8 Random Glucose 95 mg/dl Calcium Level 9.0 mg/dl Magnesium Level 2.3 mg/dl Telemetry reviewed: She had several episodes this morning of slow heart rates. His appear to be sinus with slowing and eventual junctional rhythm with return to sinus afterward. Assessment and Plan 1. Syncope: The mechanism of the patient's syncope is still in question. There is some concern that she has orthostatic hypotension given the results of prior testing in her poor oral intake. Her symptoms do appear to involve some prodrome followed by brief periods of syncope and feeling poorly for 10-15 minutes. The rhythm seen on telemetry this morning is also consistent with a transient increase in vagal tone. It is very possible that the mechanism of her syncope is neurocardiogenic. Whether she has an exclusive cardioinhibitory response or combined cardioinhibitory vasodepressor response is unclear. There is also limited interventions which would be successful in treating this mechanism. It is rare for people to benefit from pacing in this situation outside of those with a pure cardioinhibitory response that is quite traumatic. It is also unclear whether this is the mechanism behind her syncope. At this point I suggested she ambulate as this commonly produces her symptoms. We can watch her on telemetry and decide if the 2 are related. Her oral intake has been better here in this may attenuate any orthostatic symptoms she may have.
--- NOTE | 2017-09-29 16:58 | Progress Note ---
Medicine Progress Note Date & Time of Visit: Sep 29, 2017 at 16:43. Subjective Patient reports feeling well, denies any dizziness. No events noted today per the who has been present with the patient throughout the admission. History limited due to patient's dementia. Appetite has been poor. No other complaints noted. Objective Last 8 Hrs Date Time Temp Pulse Resp B/P (MAP) Pulse Ox O2 Delivery O2 Flow Rate FiO2 09/29/17 16:00 Room Air 09/29/17 14:54 36.8 73 18 144/73 (96) 94 Room Air 09/29/17 12:00 Room Air 09/29/17 11:26 36.8 76 18 124/67 (86) 97 Room Air 09/29/17 09:15 36.3 91 16 129/81 (97) 93 Room Air 09/29/17 09:15 Room Air Physical Exam: GENERAL: Patient is in no acute distress. HEENT: No acute trauma, normocephalic, mucous membranes moist, no nasal congestion, no scleral icterus, conjunctivae clear. NECK: No stridor, trachea is midline. LUNGS: Clear to auscultation bilaterally, no wheeze, no rhonchi, breath sounds equal. HEART: Without murmurs gallops or rubs, regular rate and rhythm. ABDOMEN: Soft, nontender, bowel sounds positive, no hepatosplenomegaly EXTREMITIES: No cyanosis or edema, full range of motion of all the joints without pain or difficulty, no signs for acute trauma. NEUROLOGIC: Oriented, no acute motor or sensory deficits, no focal weakness. SKIN: No rash, no jaundice, no diaphoresis. Laboratory Results: Last 24 Hours Test 09/29/17 06:06 Sodium Level 142 mmol/L Potassium Level 3.8 mmol/L Chloride Level 107 mmol/L Carbon Dioxide Level 30 mmol/L Anion Gap 5.0 mmol/L Blood Urea Nitrogen 23 mg/dl Creatinine 0.84 mg/dl Est Creatinine Clear Calc Drug Dose 70.2 ml/min Estimated GFR () 86.3 Estimated GFR (Non- 74.5 BUN/Creatinine Ratio 26.8 Random Glucose 95 mg/dl Calcium Level 9.0 mg/dl Magnesium Level 2.3 mg/dl Assessment & Plan RECURRENT SYNCOPAL EPISODES: -patient with a long standing history of syncope, worked up in the past and thought to be secondary to orthostatic hypotension -other differentials include: possible autonomic component from small vessel ischemic disease -had a previous positive Tilt Table test with significant orthostasis -positive orthostatics -symptoms with prodrome including dizziness -EEG: moderate encephalopathy of nonspecific etiology. No electrographic seizures or epileptiform discharges -has poor oral intake, trace ketones on UA which result from patient's dementia -PVCs on EKG -TTE: -yesterday had 2 episodes of bradycardia on monitor, but was asymptomatic; this was relayed to Cardiology and Dr. Pack (covering for [facility]) reviewed the telemetry and spoke with the patient and her ; he states it appears to be a junctional rhythm and it would be helpful to elucidate whether this is related to the recurrent syncope and if it can be brought on by activity as the reports it normally does -Appreciate Cardiology recommendations -monitor on telemetry -IV fluids discontinued -continued on Florinef 0.2mg daily -compression stockings ordered -not safe to be discharged home as high risk for falls, recurrent falls, currently being evaluated for rehab placement -PT/OT: Recommends inpatient rehab HYPOKALEMIA: -monitor -will evaluate need for replacement upon discharge AMS/ENCEPHALOPATHY: -now at baseline with more confusion, possibly from progression of dementia or situational confusion -has baseline severe dementia as well -CT head with no acute findings -UA, CXR normal -TSH, B12 levels are normal ADVANCED DEMENTIA: -secondary to small vessel ischemic disease, early onset Alzheimer -Brain MRI in 2016 with generalized atrophy, no acute findings -continue home meds HYPERLIPIDEMIA: -continue statin HYPOTHYROIDISM: -continue levothyroxine -TSH, Free T4 normal CHRONIC ANEMIA: -Hb at baseline -monitor -no bleeding signs/symptoms Current Inpatient Medications: Current Inpatient Medications Medications (Trade) Dose Ordered Sig/Jevon Route Start Time Stop Time Status Last Admin Dose Admin Heparin Sodium (Porcine) (Heparin Sq 5000 Unit/0.5ml) 5,000 unit Q8 SQ 09/23/17 22:00 10/23/17 21:59 09/29/17 14:09 5,000 UNIT Acetaminophen (Tylenol Tab) 650 mg Q4H PRN PO 09/23/17 17:15 10/23/17 17:14 09/24/17 22:11 650 MG Ondansetron HCl (Zofran Inj) 4 mg Q6H PRN IV 09/23/17 17:15 10/23/17 17:14 Aspirin (Ecotrin Tab) 81 mg DAILY PO 09/24/17 09:00 10/24/17 08:59 09/29/17 08:44 81 MG Docusate Sodium (coLACE CAP) 100 mg BID PO 09/23/17 21:00 10/23/17 20:59 09/29/17 08:44 100 MG Doxepin HCl (Sinequan Cap) 75 mg HS PO 09/23/17 21:00 10/23/17 20:59 09/28/17 20:01 75 MG Levothyroxine Sodium (Synthroid Tab) 50 mcg DAILYBB PO 09/24/17 06:30 10/24/17 06:29 09/29/17 05:52 50 MCG Memantine (Namenda Tab) 10 mg BID PO 09/23/17 21:00 10/23/17 20:59 09/29/17 08:44 10 MG Multivitamins/ Minerals (Multivitamin W/ Minerals Tab) 1 tab DAILY PO 09/24/17 09:00 10/24/17 08:59 09/29/17 08:44 1 TAB Sertraline HCl (Zoloft Tab) 100 mg DAILY PO 09/24/17 09:00 10/24/17 08:59 09/29/17 08:44 100 MG Simvastatin (Zocor Tab) 20 mg HS PO 09/23/17 21:00 10/23/17 20:59 09/28/17 20:01 20 MG Miscellaneous (Iv Fluids Completed) 1 ea PRN PRN N/A 09/23/17 20:15 09/23/18 20:14 09/24/17 06:00 1 EA Donepezil HCl (Aricept) 23 mg HS PO 09/23/17 21:00 10/23/17 20:59 09/28/17 20:00 23 MG Fludrocortisone Acetate (Florinef Tab) 0.2 mg QAM PO 09/26/17 09:00 10/26/17 08:59 09/29/17 08:44 0.2 MG Enteral Nutritional Formula (Boost) 1 can BID PO 09/27/17 21:00 10/27/17 20:59 09/29/17 08:38 1 CAN Enteral Nutritional Formula (Boost) 1 can BIDM PO 09/27/17 17:00 10/27/17 16:59 09/29/17 16:31 1 CAN
[2017-09-29] MEDS: SIMVASTATIN 20 MG TAB PO SCH (20:29)
[2017-09-29] MEDS: DOXEPIN HCL 75 MG CAP PO SCH (20:30)
[2017-09-29] MEDS: DONEPEZIL HCL 23 MG TAB PO SCH (21:56)
[2017-09-30] VITALS (8 sets, daily range): BP systolic 120–151; BP diastolic 64–85; PULSE 59–76; TEMP 36.3–37; O2SAT 96–97
[2017-09-30] MEDS: LEVOTHYROXINE 50 MCG TAB PO SCH (06:08)
[2017-09-30] MEDS: HEPARIN SOD 5000 UNIT/0.5 ML CARP SQ SCH ×3 (06:08→21:34)
[2017-09-30 06:11] LABS: HEMATOCRIT 32.5 % (37-47); HEMOGLOBIN 10.5 g/dL (12.0-16.0); MEAN CELL VOLUME 60.1 fL (80-100); MEAN CORPUSCULAR HEMOGLOBIN 19.4 pg (25-34); MEAN CORPUSCULAR HGB CONC 32.3 g/dl (32-36); PLATELET COUNT 291 K/uL (130-400); RED CELL DISTRIBUTION WIDTH CV 16.8 % (11.5-14.5); RED CELL DISTRIBUTION WIDTH SD 35.2 fL (36.4-46.3); WHITE BLOOD COUNT 7.66 K/uL (4.8-10.8)
[2017-09-30 06:43] LABS: CALCIUM 9.1 mg/dl (8.5-10.1); CREATININE 0.9 mg/dl (0.60-1.20); POTASSIUM 3.8 mmol/L (3.5-5.1)
[2017-09-30] MEDS: BOOST VANILLA PO SCH ×4 (08:00→21:00)
[2017-09-30] MEDS: ASPIRIN 81 MG ECTAB PO SCH (08:48)
[2017-09-30] MEDS: MEMANTINE 10 MG TAB PO SCH ×2 (08:48→21:42)
[2017-09-30] MEDS: CEROVITE ADV FORMULA TAB PO SCH (08:48)
[2017-09-30] MEDS: DOCUSATE SODIUM 100 MG CAP PO SCH ×2 (08:48→21:42)
[2017-09-30] MEDS: SERTRALINE HCL 100 MG TAB PO SCH (08:48)
[2017-09-30] MEDS: FLUDROCORTISONE ACETATE 0.1 MG TAB PO SCH (08:49)
--- NOTE | 2017-09-30 18:59 | Progress Note ---
Medicine Progress Note Date & Time of Visit: Sep 30, 2017 at 18:58. Subjective Patient denies any complaints, was up with therapy earlier today and sat in a chair for 2 hours. No episodes of dizziness or syncope noted. No overnight events noted. Has poor appetite but is generally able to eat some of her breakfast per the . Seems to be at baseline mentation juarez. Objective Last 8 Hrs Date Time Temp Pulse Resp B/P (MAP) Pulse Ox O2 Delivery O2 Flow Rate FiO2 09/30/17 15:01 37.0 68 18 127/76 (93) 97 Room Air 09/30/17 12:00 Room Air 09/30/17 11:36 36.3 59 18 151/85 (107) 97 Room Air Physical Exam: GENERAL: Patient is in no acute distress. HEENT: No acute trauma, normocephalic, mucous membranes moist, no nasal congestion, no scleral icterus, conjunctivae clear. NECK: No stridor, trachea is midline. LUNGS: Clear to auscultation bilaterally, no wheeze, no rhonchi, breath sounds equal. HEART: Without murmurs gallops or rubs, regular rate and rhythm. ABDOMEN: Soft, nontender, bowel sounds positive, no hepatosplenomegaly EXTREMITIES: No cyanosis or edema, full range of motion of all the joints without pain or difficulty, no signs for acute trauma. NEUROLOGIC: Oriented, no acute motor or sensory deficits, no focal weakness. SKIN: No rash, no jaundice, no diaphoresis. Laboratory Results: Last 24 Hours Test 09/30/17 05:51 White Blood Count 7.66 K/uL Red Blood Count 5.41 M/uL Hemoglobin 10.5 g/dL Hematocrit 32.5 % Mean Corpuscular Volume 60.1 fL Mean Corpuscular Hemoglobin 19.4 pg Mean Corpuscular Hemoglobin Concent 32.3 g/dl RDW Standard Deviation 35.2 fL RDW Coefficient of Variation 16.8 % Platelet Count 291 K/uL Sodium Level 139 mmol/L Potassium Level 3.8 mmol/L Chloride Level 106 mmol/L Carbon Dioxide Level 30 mmol/L Anion Gap 3.0 mmol/L Blood Urea Nitrogen 22 mg/dl Creatinine 0.90 mg/dl Est Creatinine Clear Calc Drug Dose 64.7 ml/min Estimated GFR () 79.4 Estimated GFR (Non- 68.5 BUN/Creatinine Ratio 24.5 Random Glucose 98 mg/dl Calcium Level 9.1 mg/dl Magnesium Level 2.3 mg/dl Assessment & Plan RECURRENT SYNCOPAL EPISODES: -patient with a long standing history of syncope, worked up in the past and thought to be secondary to orthostatic hypotension -other differentials include: possible autonomic component from small vessel ischemic disease -had a previous positive Tilt Table test with significant orthostasis -positive orthostatics -symptoms with prodrome including dizziness -EEG: moderate encephalopathy of nonspecific etiology. No electrographic seizures or epileptiform discharges -has poor oral intake, trace ketones on UA which result from patient's dementia -PVCs on EKG -TTE Report: * -- Conclusions -- * The left ventricle is normal in size. * There is borderline concentric left ventricular hypertrophy. * Left ventricular systolic function is normal. * The left ventricular wall motion is normal. * Ejection Fraction = 60-65%. * No valvular disease * There is no pericardial effusion. * The aortic root is normal size. -has had several episodes of bradycardia on monitor, but was asymptomatic; this was relayed to Cardiology and Dr. Pack (covering for [facility]) reviewed the telemetry and spoke with the patient and her ; he states it appears to be a junctional rhythm and it would be helpful to elucidate whether this is related to the recurrent syncope and possibly neurocardiogenic associated with vagal stim; and if it can be brought on by activity as the reports it normally does -Appreciate Cardiology recommendations -monitor on telemetry -IV fluids discontinued -continued on Florinef 0.2mg daily -compression stockings ordered -not safe to be discharged home as high risk for falls, recurrent falls, currently being evaluated for rehab placement -PT/OT: Recommends inpatient rehab HYPOKALEMIA: -monitor -will evaluate need for replacement upon discharge AMS/ENCEPHALOPATHY: -now at baseline with more confusion, possibly from progression of dementia or situational confusion -has baseline severe dementia as well -CT head with no acute findings -UA, CXR normal -TSH, B12 levels are normal ADVANCED DEMENTIA: -secondary to small vessel ischemic disease, early onset Alzheimer -Brain MRI in 2016 with generalized atrophy, no acute findings -continue home meds HYPERLIPIDEMIA: -continue statin HYPOTHYROIDISM: -continue levothyroxine -TSH, Free T4 normal CHRONIC ANEMIA: -Hb at baseline -monitor -no bleeding signs/symptoms Current Inpatient Medications: Current Inpatient Medications Medications (Trade) Dose Ordered Sig/Jevon Route Start Time Stop Time Status Last Admin Dose Admin Heparin Sodium (Porcine) (Heparin Sq 5000 Unit/0.5ml) 5,000 unit Q8 SQ 09/23/17 22:00 10/23/17 21:59 09/30/17 13:59 5,000 UNIT Acetaminophen (Tylenol Tab) 650 mg Q4H PRN PO 09/23/17 17:15 10/23/17 17:14 09/24/17 22:11 650 MG Ondansetron HCl (Zofran Inj) 4 mg Q6H PRN IV 09/23/17 17:15 10/23/17 17:14 Aspirin (Ecotrin Tab) 81 mg DAILY PO 09/24/17 09:00 10/24/17 08:59 09/30/17 08:48 81 MG Docusate Sodium (coLACE CAP) 100 mg BID PO 09/23/17 21:00 10/23/17 20:59 09/30/17 08:48 100 MG Doxepin HCl (Sinequan Cap) 75 mg HS PO 09/23/17 21:00 10/23/17 20:59 09/29/17 20:30 75 MG Levothyroxine Sodium (Synthroid Tab) 50 mcg DAILYBB PO 09/24/17 06:30 10/24/17 06:29 09/30/17 06:08 50 MCG Memantine (Namenda Tab) 10 mg BID PO 09/23/17 21:00 10/23/17 20:59 09/30/17 08:48 10 MG Multivitamins/ Minerals (Multivitamin W/ Minerals Tab) 1 tab DAILY PO 09/24/17 09:00 10/24/17 08:59 09/30/17 08:48 1 TAB Sertraline HCl (Zoloft Tab) 100 mg DAILY PO 09/24/17 09:00 10/24/17 08:59 09/30/17 08:48 100 MG Simvastatin (Zocor Tab) 20 mg HS PO 09/23/17 21:00 10/23/17 20:59 09/29/17 20:29 20 MG Miscellaneous (Iv Fluids Completed) 1 ea PRN PRN N/A 09/23/17 20:15 09/23/18 20:14 09/24/17 06:00 1 EA Donepezil HCl (Aricept) 23 mg HS PO 09/23/17 21:00 10/23/17 20:59 09/29/17 21:56 23 MG Fludrocortisone Acetate (Florinef Tab) 0.2 mg QAM PO 09/26/17 09:00 10/26/17 08:59 09/30/17 08:49 0.2 MG Enteral Nutritional Formula (Boost) 1 can BID PO 09/27/17 21:00 10/27/17 20:59 09/30/17 08:41 1 CAN Enteral Nutritional Formula (Boost) 1 can BIDM PO 09/27/17 17:00 10/27/17 16:59 09/30/17 16:45 1 CAN
[2017-09-30] MEDS: SIMVASTATIN 20 MG TAB PO SCH (21:41)
[2017-09-30] MEDS: DOXEPIN HCL 75 MG CAP PO SCH (21:42)
[2017-09-30] MEDS: DONEPEZIL HCL 23 MG TAB PO SCH (21:43)
[2017-10-01 04:25] VITALS: BP 132/79; PULSE 63; TEMP 36.3; O2SAT 97
[2017-10-01] MEDS: HEPARIN SOD 5000 UNIT/0.5 ML CARP SQ SCH ×3 (06:06→21:15)
[2017-10-01] MEDS: LEVOTHYROXINE 50 MCG TAB PO SCH (06:07)
[2017-10-01 07:19] VITALS: BP 119/72; PULSE 60; TEMP 36.8; O2SAT 97
[2017-10-01] MEDS: BOOST VANILLA PO SCH ×4 (07:56→21:11)
[2017-10-01] MEDS: SERTRALINE HCL 100 MG TAB PO SCH (07:57)
[2017-10-01] MEDS: MEMANTINE 10 MG TAB PO SCH ×2 (07:57→21:10)
[2017-10-01] MEDS: ASPIRIN 81 MG ECTAB PO SCH (07:57)
[2017-10-01] MEDS: FLUDROCORTISONE ACETATE 0.1 MG TAB PO SCH (07:57)
[2017-10-01] MEDS: DOCUSATE SODIUM 100 MG CAP PO SCH ×2 (07:57→21:10)
[2017-10-01] MEDS: CEROVITE ADV FORMULA TAB PO SCH (07:57)
[2017-10-01 08:59] VITALS: O2SAT 96
[2017-10-01 09:01] VITALS: BP 113/74; PULSE 70; TEMP 36.6; O2SAT 96
[2017-10-01 11:27] VITALS: BP 130/77; PULSE 70; TEMP 36.4; O2SAT 97
--- NOTE | 2017-10-01 18:58 | Progress Note ---
Medicine Progress Note Date & Time of Visit: Oct 01, 2017 at 18:57. Subjective Patient denies any complaints; at the bedside has not noticed any changes other than some occasional myoclonic twitching. No events on tele. No syncopal events. No overnight events noted. Objective Last 8 Hrs Date Time Temp Pulse Resp B/P (MAP) Pulse Ox O2 Delivery O2 Flow Rate FiO2 10/01/17 16:00 Room Air 10/01/17 12:00 Room Air 10/01/17 11:27 36.4 70 18 130/77 (94) 97 Room Air Physical Exam: GENERAL: Patient is in no acute distress. HEENT: No acute trauma, normocephalic, mucous membranes moist, no nasal congestion, no scleral icterus, conjunctivae clear. NECK: No stridor, trachea is midline. LUNGS: Clear to auscultation bilaterally, no wheeze, no rhonchi, breath sounds equal. HEART: Without murmurs gallops or rubs, regular rate and rhythm. ABDOMEN: Soft, nontender, bowel sounds positive, no hepatosplenomegaly EXTREMITIES: No cyanosis; trace LE edema, full range of motion of all the joints without pain or difficulty, no signs for acute trauma. NEUROLOGIC: Oriented, no acute motor or sensory deficits, no focal weakness. SKIN: No rash, no jaundice, no diaphoresis. Assessment & Plan RECURRENT SYNCOPAL EPISODES: -patient with a long standing history of syncope, worked up in the past and thought to be secondary to orthostatic hypotension -other differentials include: possible autonomic component from small vessel ischemic disease -had a previous positive Tilt Table test with significant orthostasis -positive orthostatics -symptoms with prodrome including dizziness -EEG: moderate encephalopathy of nonspecific etiology. No electrographic seizures or epileptiform discharges -has poor oral intake, trace ketones on UA which result from patient's dementia -PVCs on EKG -TTE Report: * -- Conclusions -- * The left ventricle is normal in size. * There is borderline concentric left ventricular hypertrophy. * Left ventricular systolic function is normal. * The left ventricular wall motion is normal. * Ejection Fraction = 60-65%. * No valvular disease * There is no pericardial effusion. * The aortic root is normal size. -has had several episodes of bradycardia on monitor, but was asymptomatic; this was relayed to Cardiology and Dr. Pack (covering for [facility]) reviewed the telemetry and spoke with the patient and her ; he states it appears to be a junctional rhythm and it would be helpful to elucidate whether this is related to the recurrent syncope and possibly neurocardiogenic associated with vagal stim; and if it can be brought on by activity as the reports it normally does -Appreciate Cardiology recommendations -monitor on telemetry -IV fluids discontinued -continued on Florinef 0.2mg daily -compression stockings ordered -not safe to be discharged home as high risk for falls, recurrent falls, currently being evaluated for rehab placement -PT/OT: Recommends inpatient rehab HYPOKALEMIA: -monitor -will evaluate need for replacement upon discharge AMS/ENCEPHALOPATHY: -now at baseline with more confusion, possibly from progression of dementia or situational confusion -has baseline severe dementia as well -CT head with no acute findings -UA, CXR normal -TSH, B12 levels are normal ADVANCED DEMENTIA: -secondary to small vessel ischemic disease, early onset Alzheimer -Brain MRI in 2016 with generalized atrophy, no acute findings -continue home meds HYPERLIPIDEMIA: -continue statin HYPOTHYROIDISM: -continue levothyroxine -TSH, Free T4 normal CHRONIC ANEMIA: -Hb at baseline -monitor -no bleeding signs/symptoms Dispo: Awaiting transportation and bed at [facility]. Medically stable for transfer Current Inpatient Medications: Current Inpatient Medications Medications (Trade) Dose Ordered Sig/Jevon Route Start Time Stop Time Status Last Admin Dose Admin Heparin Sodium (Porcine) (Heparin Sq 5000 Unit/0.5ml) 5,000 unit Q8 SQ 09/23/17 22:00 10/23/17 21:59 10/01/17 14:02 5,000 UNIT Acetaminophen (Tylenol Tab) 650 mg Q4H PRN PO 09/23/17 17:15 10/23/17 17:14 09/24/17 22:11 650 MG Ondansetron HCl (Zofran Inj) 4 mg Q6H PRN IV 09/23/17 17:15 10/23/17 17:14 Aspirin (Ecotrin Tab) 81 mg DAILY PO 09/24/17 09:00 10/24/17 08:59 10/01/17 07:57 81 MG Docusate Sodium (coLACE CAP) 100 mg BID PO 09/23/17 21:00 10/23/17 20:59 10/01/17 07:57 100 MG Doxepin HCl (Sinequan Cap) 75 mg HS PO 09/23/17 21:00 10/23/17 20:59 09/30/17 21:42 75 MG Levothyroxine Sodium (Synthroid Tab) 50 mcg DAILYBB PO 09/24/17 06:30 10/24/17 06:29 10/01/17 06:07 50 MCG Memantine (Namenda Tab) 10 mg BID PO 09/23/17 21:00 10/23/17 20:59 10/01/17 07:57 10 MG Multivitamins/ Minerals (Multivitamin W/ Minerals Tab) 1 tab DAILY PO 09/24/17 09:00 10/24/17 08:59 10/01/17 07:57 1 TAB Sertraline HCl (Zoloft Tab) 100 mg DAILY PO 09/24/17 09:00 10/24/17 08:59 10/01/17 07:57 100 MG Simvastatin (Zocor Tab) 20 mg HS PO 09/23/17 21:00 10/23/17 20:59 09/30/17 21:41 20 MG Miscellaneous (Iv Fluids Completed) 1 ea PRN PRN N/A 09/23/17 20:15 09/23/18 20:14 09/24/17 06:00 1 EA Donepezil HCl (Aricept) 23 mg HS PO 09/23/17 21:00 10/23/17 20:59 09/30/17 21:43 23 MG Fludrocortisone Acetate (Florinef Tab) 0.2 mg QAM PO 09/26/17 09:00 10/26/17 08:59 10/01/17 07:57 0.2 MG Enteral Nutritional Formula (Boost) 1 can BID PO 09/27/17 21:00 10/27/17 20:59 10/01/17 07:56 1 CAN Enteral Nutritional Formula (Boost) 1 can BIDM PO 09/27/17 17:00 10/27/17 16:59 10/01/17 17:26 1 CAN
[2017-10-01 19:05] VITALS: BP 124/73; PULSE 62; TEMP 37; O2SAT 97
[2017-10-01] MEDS: SIMVASTATIN 20 MG TAB PO SCH (21:10)
[2017-10-01] MEDS: DOXEPIN HCL 75 MG CAP PO SCH (21:11)
[2017-10-01] MEDS: DONEPEZIL HCL 23 MG TAB PO SCH (21:12)
[2017-10-02 00:56] VITALS: BP 136/74; PULSE 64; TEMP 36.5; O2SAT 96
[2017-10-02 04:12] VITALS: BP 130/76; PULSE 60; TEMP 36.6; O2SAT 95
[2017-10-02] MEDS: LEVOTHYROXINE 50 MCG TAB PO SCH (05:16)
[2017-10-02] MEDS: HEPARIN SOD 5000 UNIT/0.5 ML CARP SQ SCH (05:18)
[2017-10-02] MEDS: CEROVITE ADV FORMULA TAB PO SCH (07:35)
[2017-10-02] MEDS: SERTRALINE HCL 100 MG TAB PO SCH (07:36)
[2017-10-02] MEDS: ASPIRIN 81 MG ECTAB PO SCH (07:36)
[2017-10-02] MEDS: DOCUSATE SODIUM 100 MG CAP PO SCH (07:36)
[2017-10-02] MEDS: FLUDROCORTISONE ACETATE 0.1 MG TAB PO SCH (07:36)
[2017-10-02] MEDS: MEMANTINE 10 MG TAB PO SCH (07:37)
[2017-10-02 07:39] VITALS: BP 136/84; PULSE 58; TEMP 36.6; O2SAT 99
[2017-10-02] MEDS: BOOST VANILLA PO SCH ×2 (08:00→08:28)
[2017-10-02 09:24] LABS: HEMATOCRIT 34.8 % (37-47); HEMOGLOBIN 11.3 g/dL (12.0-16.0); MEAN CELL VOLUME 59.8 fL (80-100); MEAN CORPUSCULAR HEMOGLOBIN 19.4 pg (25-34); MEAN CORPUSCULAR HGB CONC 32.5 g/dl (32-36); NUCLEATED RED BLOOD CELL ABS 0.03 K/uL (0-0); PLATELET COUNT 339 K/uL (130-400); RED CELL DISTRIBUTION WIDTH CV 17.1 % (11.5-14.5); RED CELL DISTRIBUTION WIDTH SD 34.9 fL (36.4-46.3)
[2017-10-02 09:51] LABS: CALCIUM 9.2 mg/dl (8.5-10.1); CREATININE 0.91 mg/dl (0.60-1.20); POTASSIUM 4.1 mmol/L (3.5-5.1)
[2017-10-02 11:36] VITALS: BP 122/73; PULSE 50; TEMP 37; O2SAT 96
[2017-10-02] MEDS ORDERED: FLR/1 PO (13:16)
[2017-10-02] MEDS ORDERED: Enteral Nutrition Formula PO (13:16)
[2017-10-02] MEDS ORDERED: Boost PO (13:16)
--- NOTE | 2017-10-02 13:20 | Discharge Instructions ---
Discharge Instructions Date of Service Oct 02, 2017. Admission Reason for Admission: Sycopal Episodes Discharge Discharge Diagnosis / Problem: Syncopal episodes Discharge Goals Goal(s): Diagnostic testing Activity Recommendations Activity Level: Assistance Required Therapies: Physical Therapy, Occupational Therapy . Additional Information Patient informed of condition: Yes Advance Directives: Yes DNR: Yes Level of Care: Acute Rehab Communicable Disease: No Prognosis: Stable Bonds Catheter: No Instructions / Follow-Up Instructions / Follow-Up Please follow up with Primary care physician in 5-7 days Follow up with Cardiology as previously scheduled Current Hospital Diet Patient's current hospital diet: Low Fat Diet Discharge Diet Recommended Diet: Regular Diet Pending Studies Studies pending at discharge: no Medical Emergencies . Who to Call and When: Medical Emergencies: If at any time you feel your situation is an emergency, please call 911 immediately. . Non-Emergent Contact Non-Emergency issues call your: Primary Care Provider, [employer] . . "Provider Documentation" section prepared by Libby Karimi. . Core Measure Problem Core Measures: None
[2017-10-02 13:22] VITALS: BP 122/73; PULSE 50; TEMP 37; O2SAT 96
--- NOTE | 2017-10-03 09:04 | Discharge Summary ---
Discharge Summary Date of Service Oct 03, 2017. Discharge Summary Admission Date: Sep 24, 2017 at 09:57 Discharge Date: Oct 02, 2017 Medication Reconciliation New Medications: Fludrocortisone Acetate (Florinef) 0.1 Mg Tab 0.2 MG PO QAM, #60 TAB [Boost] () 1 CAN LIQD 1 CAN PO BID, #1 [Enteral Nutrition Formula] () 1 CAN LIQD 1 CAN PO BIDM, #1 Continued Medications: Aspirin (Aspirin Ec) 81 Mg Tab 81 MG PO DAILY Docusate Sodium (Stool Softener) 100 Mg Cap 100 MG PO BID Donepezil Hydrochloride (Aricept) 23 Mg Tab 23 MG PO HS Doxepin Hcl (Doxepin) 75 Mg Cap 75 MG PO HS Levothyroxine Sodium (Synthroid) 50 Mcg Tab 50 MCG PO DAILY, TAB Memantine (Namenda) 10 Mg Tab 10 MG PO BID, TAB Multiple Vitamins W/ Minerals (Multi For Her) 1 Tab Tab 1 TAB PO DAILY Sertraline (Zoloft) 100 Mg Tab 100 MG PO DAILY, TAB Simvastatin (Zocor) 20 Mg Tab 20 MG PO HS, TAB Admission Information HPI (per Admitting provider): This is a 62yo F with a PMH of advanced dementia (2/2 small vessel ischemic disease), HTN (not on meds 2/2 orthostasis), history of CVA, HLD, hypothyroidism and chronic anemia who presents after a syncopal episode earlier today. At baseline, patient requires help with all care at home from but is able to walk independently. History is obtained from since is unable to provide a reliable history 2/2 dementia. He states that she had a syncopal event on Thursday when he was helping the patient to get dressed. was able to catch her. A second event occurred today again while he was helping to dress patient. She has a history of syncope 2/2 orthostasis and is able to identify a vague prodrome and tell her that she doesn't feel well but cannot articulate if she experiences any lightheadedness, palpitations or CP prior to event. Has been admitted for a similar episode in the past and was evaluated by cardiology. Orthostatic hypotension is presumed to be due to autonomic dysfunction 2/2 dementia. No cardiac abnormalities were identified on telemetry at this time besides persistent PVCs. Was started on amiodarone after last admission for symptomatic PVCs but the medication has since been discontinued. There is suspicion for sick sinus syndrome but have not been able to identify on cardiac monitoring. Echo from 2016 shows an EF of 65%. Brain MRI from 2016 with generalized atrophy, no acute infarction or mass. Follows with Dr. Drake (PCP), Dr. Wellington (cardio) and Dr. Paz (neuro). endorses poor water intake, foul smelling urine and more frequent bouts of incontinence over the past few days. Also endorses more confusion than baseline. Patient able to tell me her name but not location, time. Unsure of 's name. Denies any pain, lightheadedness, palpitations,CP, SOB, abd pain , nausea, vomiting or LE swelling. Physical Exam (per Admitting): General Appearance: WD/WN, no apparent distress Head: normocephalic, atraumatic Eyes: normal inspection, PERRL, sclerae normal ENT: normal ENT inspection, hearing grossly normal, pharynx normal Neck: supple, thyroid normal, trachea midline Respiratory/Chest: chest non-tender, lungs clear, normal breath sounds, no respiratory distress, no accessory muscle use Cardiovascular: no edema, no murmur, normal peripheral pulses, + pertinent finding (Irregular rhythm ) Abdomen/GI: non tender, soft, no organomegaly Back: normal inspection Extremities/Musculoskelatal: normal inspection, no calf tenderness, no pedal edema Neurologic/Psych: no motor/sensory deficits, alert, normal mood/affect, oriented x 3 Skin: normal color, warm/dry Hospital Course RECURRENT SYNCOPAL EPISODES: -patient with a long standing history of syncope, worked up in the past and thought to be secondary to orthostatic hypotension -other differentials include: possible autonomic component from small vessel ischemic disease -had a previous positive Tilt Table test with significant orthostasis -positive orthostatics -symptoms with prodrome including dizziness -EEG: moderate encephalopathy of nonspecific etiology. No electrographic seizures or epileptiform discharges -has poor oral intake, trace ketones on UA which result from patient's dementia -PVCs on EKG -TTE Report: * -- Conclusions -- * The left ventricle is normal in size. * There is borderline concentric left ventricular hypertrophy. * Left ventricular systolic function is normal. * The left ventricular wall motion is normal. * Ejection Fraction = 60-65%. * No valvular disease * There is no pericardial effusion. * The aortic root is normal size. -has had several episodes of bradycardia on monitor, but was asymptomatic; this was relayed to Cardiology and Dr. Pack (covering for [facility]) reviewed the telemetry and spoke with the patient and her ; he states it appears to be a junctional rhythm and it would be helpful to elucidate whether this is related to the recurrent syncope and possibly neurocardiogenic associated with vagal stim; and if it can be brought on by activity as the reports it normally does -Appreciate Cardiology recommendations -monitor on telemetry -IV fluids discontinued -continued on Florinef 0.2mg daily -compression stockings ordered -not safe to be discharged home as high risk for falls, recurrent falls, currently being evaluated for rehab placement -PT/OT: Recommends inpatient rehab HYPOKALEMIA: -monitor -will evaluate need for replacement upon discharge AMS/ENCEPHALOPATHY: -now at baseline with more confusion, possibly from progression of dementia or situational confusion -has baseline severe dementia as well -CT head with no acute findings -UA, CXR normal -TSH, B12 levels are normal ADVANCED DEMENTIA: -secondary to small vessel ischemic disease, early onset Alzheimer -Brain MRI in 2016 with generalized atrophy, no acute findings -continue home meds HYPERLIPIDEMIA: -continue statin HYPOTHYROIDISM: -continue levothyroxine -TSH, Free T4 normal CHRONIC ANEMIA: -Hb at baseline -monitor -no bleeding signs/symptoms Dispo: Awaiting transportation and bed at [facility]. Medically stable for transfer Total time spent on discharge = This includes examination of the patient, discharge planning, medication reconciliation, and communication with other providers.
== END 2017-10-02 14:15 | DRG 312 ==
LOC: C.EDB 13:03 → C.MED 17:12 → ENRESERV 17:27 → OBSVTOIN 09-24 09:57
PROVIDERS: ADMIT Internal Medicine; ATTEND Internal Medicine
DX: I95.1 Orthostatic hypotension (principal); G93.40 Encephalopathy, unspecified; F03.90 Unspecified dementia, unspecified severity, without behavioral disturbance, psychotic disturbance, mood disturbance, and anxiety; E87.6 Hypokalemia; Z66 Do not resuscitate; E78.5 Hyperlipidemia, unspecified; D64.9 Anemia, unspecified; E03.9 Hypothyroidism, unspecified; Z98.51 Tubal ligation status; Z79.82 Long term (current) use of aspirin; Z86.73 Personal history of transient ischemic attack (TIA), and cerebral infarction without residual deficits

== ENCOUNTER 2017-12-22 09:45 | Inpatient (IN) | payer OTHER, MEDICARE ==
[~2017-12-22] VITALS: Ht 165.1 cm; Wt 78.3 kg
[~2017-12-22 09:45] MED LIST changes: +Boost PO; -CRD200 PO; +DOCU100C PO; +DXP/75 PO; +Enteral Nutrition Formula PO; +FLR/1 PO; -MELA1TAB54 PO
[2017-12-22] MEDS ORDERED: SODIUM CHLORIDE 0.9% 1000ML 1,000 ML IV ONE (10:00)
[2017-12-22] MEDS ORDERED: SODIUM CHLORIDE 0.9% 1000ML 1,000 ML IV STA (10:00)
--- NOTE | 2017-12-22 10:32 | DIAGNOSTIC IMAGING REPORT ---
CHEST ONE VIEW PORTABLE HISTORY: Atypical CHEST PAIN COMPARISON: Chest 09/23/2017. FINDINGS: There are low lung volumes. The heart is mildly enlarged. Small right pleural effusion and right basilar densities. No evidence for pulmonary edema. No pneumothorax. IMPRESSION: 1. Interval development of a small right pleural effusion. Right basilar densities are nonspecific and could represent atelectasis or pneumonia. 2. Low lung volumes. 3. Mild cardiomegaly. Electronically signed by: Caden Garrett M.D. 12/22/2017 10:31 AM Dictated Date/Time: 12/22/2017 10:30 AM
[2017-12-22 10:55] LABS: BASO % 0.2 %; BASO ABS # 0.02 K/uL (0-0.2); EOS % 0.2 %; EOS ABS # 0.02 K/uL (0-0.5); HEMATOCRIT 34.3 % (37-47); HEMOGLOBIN 10.9 g/dL (12.0-16.0); IG# 0.04 K/uL (0.00-0.02); LYMPH % 7.4 %; LYMPH ABS # 0.92 K/uL (1.2-3.4); MEAN CELL VOLUME 57.9 fL (80-100); MEAN CORPUSCULAR HEMOGLOBIN 18.4 pg (25-34); MEAN CORPUSCULAR HGB CONC 31.8 g/dl (32-36); MONO % 6.3 %; MONO ABS # 0.78 K/uL (0.11-0.59); NEUT % 85.6 %; NEUT ABS # 10.67 K/uL (1.4-6.5); PLATELET COUNT 226 K/uL (130-400); RED CELL DISTRIBUTION WIDTH CV 15.4 % (11.5-14.5); RED CELL DISTRIBUTION WIDTH SD 31.9 fL (36.4-46.3); WHITE BLOOD COUNT 12.45 K/uL (4.8-10.8)
--- NOTE | 2017-12-22 11:02 | DIAGNOSTIC IMAGING REPORT ---
HEAD WITHOUT CONTRAST (CT) CT DOSE: 690.05 mGycm HISTORY: Trauma. Mental status change. eval for trauma TECHNIQUE: Multiaxial CT images of the head were performed without the use of intravenous contrast. A dose lowering technique was utilized adhering to the principles of ALARA. Comparison: 09/23/2017 Findings: The paranasal sinuses and mastoid air cells are clear. Atrophy of the cerebellar as well as cerebral hemispheres. Moderate chronic small vessel change. No acute intracranial hemorrhage. No midline shift. Impression: Age-related change. Atrophy. No acute process. The above report was generated using voice recognition software. It may contain grammatical, syntax or spelling errors. Electronically signed by: Orlando Alvarado M.D. 12/22/2017 11:00 AM Dictated Date/Time: 12/22/2017 10:58 AM
[2017-12-22] MEDS ORDERED: HYDROCORTISONE SOD SUCCINATE 100 MG/2 ML VIAL IV STA (11:05)
[2017-12-22 11:26] LABS: ALBUMIN 3.3 gm/dl (3.4-5.0); ALKALINE PHOSPHATASE 128 U/L (45-117); ALT/SGPT 59 U/L (12-78); AST/SGOT 76 U/L (15-37); CKMB < 0.5 ng/ml (0.5-3.6); LIPASE 150 U/L (73-393); TOTAL PROTEIN 6.8 gm/dl (6.4-8.2)
[2017-12-22 11:34] LABS: CALCIUM 8.7 mg/dl (8.5-10.1); CREATININE 1.1 mg/dl (0.60-1.20); POTASSIUM 3.8 mmol/L (3.5-5.1)
[2017-12-22] MEDS ORDERED: FLUD0.1T10 PO (11:39)
--- NOTE | 2017-12-22 11:53 | EMERGENCY ROOM VISIT NOTE ---
History Report prepared by Cora: Moe Dorado Under the Supervision of: Dr. Allan Thompson M.D. First contact with patient: 09:53 Chief Complaint: SYNCOPE (NEAR SYNCOPE) Stated Complaint: SYNCOPE History of Present Illness The patient is a 62 year old female who presents to the Emergency Room by EMS with complaints of a syncopal episode occurring shortly prior to arrival. The patient has a history of dementia. Per nursing staff, the patient was found on the bathroom floor by her today. She states that the patient is thought to possibly have Sick Sinus Syndrome, though the patient is not formally diagnosed. The patient's was home during the event. The patient denies visual changes, headaches, abdominal pain, numbness, weakness, SOB, or chest pain. She was hospitalized earlier this year for a similar episode. HPI limited secondary to dementia. Source of History: patient, nursing staff History Limited By: dementia Onset: Shortly prior to arrival Quality: other (syncope) Timing: other (episode) Associated Symptoms: No headache, No chest pain, No SOB, No abdominal pain, No weakness, No numbness Note: Negative: visual changes. Review of Systems ROS limited secondary to dementia. Past Medical & Surgical Medical Problems: (1) Advanced dementia (2) CVA (cerebral infarction) (3) HLD (hyperlipidemia) (4) Hypothyroidism (5) PVC (premature ventricular contraction) (6) Syncopal episodes Surgical Problems: (1) H/O tubal ligation Old medical records were reviewed. Nurse's notes were reviewed and I agree with. Family History Alzheimer's disease Social History Smoking Status: Never Smoker Alcohol Use: occasionally Drug Use: none Marital Status: Housing Status: lives with significant other Occupation Status: retired Current/Historical Medications Scheduled Aspirin (Aspirin Ec), 81 MG PO DAILY Docusate Sodium (Stool Softener), 100 MG PO QAM Donepezil Hydrochloride (Aricept), 23 MG PO HS Doxepin Hcl (Doxepin), 75 MG PO HS Fludrocortisone Acetate (Florinef), 0.1 MG PO QAM Levothyroxine Sodium (Synthroid), 50 MCG PO DAILY Memantine (Namenda), 10 MG PO BID Multiple Vitamins W/ Minerals (Multi For Her), 1 TAB PO DAILY Sertraline (Zoloft), 100 MG PO DAILY Simvastatin (Zocor), 20 MG PO HS Allergies Coded Allergies: Penicillins (Verified Allergy, Unknown, unknown, 09/23/17) Physical Exam Vital Signs Date Time Temp Pulse Resp B/P (MAP) Pulse Ox O2 Delivery O2 Flow Rate FiO2 12/22/17 12:40 Room Air 12/22/17 12:30 63 18 130/71 98 Room Air 12/22/17 11:28 68 16 126/75 98 Room Air 12/22/17 10:00 72 12/22/17 09:53 37.0 73 16 103/45 99 Room Air 12/22/17 09:53 99 Room Air 12/22/17 09:49 72 16 101/51 98 Room Air 78 92/52 Physical Exam General: Chronically-ill appearing older female in no acute distress. HEENT: Normal cephalic atraumatic. Pupils are equal round and reactive to light. Extraocular movements are intact. Oropharynx is pink with moist mucous membranes. No swelling of the mouth lips or tongue. Neck: Supple with a midline trachea. No meningeal signs or stiffness, no JVD or bruits. No Stridor. Chest: Clear to auscultation bilaterally. No wheezes or rhonchi. No increased work of breathing. Heart: regular rate and rhythm. Abdomen: Soft nontender, nondistended without rebound guarding or rigidity. Extremities: No cyanosis clubbing or edema. No calf tenderness or assymetry Spine/Back. Non tender to palpation. No CVA tenderness Skin: Good turgor without rashes. Neurologic exam: Baseline dementia. Answers name correctly. Follows commands. Medical Decision & Procedures ER Provider Diagnostic Interpretation: Radiology results as stated below per my review and radiologist interpretation: CHEST ONE VIEW PORTABLE FINDINGS: There are low lung volumes. The heart is mildly enlarged. Small right pleural effusion and right basilar densities. No evidence for pulmonary edema. No pneumothorax. IMPRESSION: 1. Interval development of a small right pleural effusion. Right basilar densities are nonspecific and could represent atelectasis or pneumonia. 2. Low lung volumes. 3. Mild cardiomegaly. Electronically signed by: Caden Garrett M.D. 12/22/2017 10:31 AM HEAD WITHOUT CONTRAST (CT) Findings: The paranasal sinuses and mastoid air cells are clear. Atrophy of the cerebellar as well as cerebral hemispheres. Moderate chronic small vessel change. No acute intracranial hemorrhage. No midline shift. Impression: Age-related change. Atrophy. No acute process. The above report was generated using voice recognition software. It may contain grammatical, syntax or spelling errors. Electronically signed by: Orlando Alvarado M.D. 12/22/2017 11:00 AM Laboratory Results 12/22/17 10:38 Red Blood Count 5.92, Mean Corpuscular Volume 57.9, Mean Corpuscular Hemoglobin 18.4, Mean Corpuscular Hemoglobin Concent 31.8, Neutrophils (%) (Auto) 85.6, Lymphocytes (%) (Auto) 7.4, Monocytes (%) (Auto) 6.3, Eosinophils (%) (Auto) 0.2 , Basophils (%) (Auto) 0.2, Neutrophils # (Auto) 10.67, Lymphocytes # (Auto) 0.92, Monocytes # (Auto) 0.78, Eosinophils # (Auto) 0.02, Basophils # (Auto) 0.02 12/22/17 10:38 Test 12/22/17 10:38 12/22/17 10:40 12/22/17 11:24 White Blood Count 12.45 K/uL (4.8-10.8) Red Blood Count 5.92 M/uL (4.2-5.4) Hemoglobin 10.9 g/dL (12.0-16.0) Hematocrit 34.3 % (37-47) Mean Corpuscular Volume 57.9 fL (80-100) Mean Corpuscular Hemoglobin 18.4 pg (25-34) Mean Corpuscular Hemoglobin Concent 31.8 g/dl (32-36) Platelet Count 226 K/uL (130-400) Neutrophils (%) (Auto) 85.6 % Lymphocytes (%) (Auto) 7.4 % Monocytes (%) (Auto) 6.3 % Eosinophils (%) (Auto) 0.2 % Basophils (%) (Auto) 0.2 % Neutrophils # (Auto) 10.67 K/uL (1.4-6.5) Lymphocytes # (Auto) 0.92 K/uL (1.2-3.4) Monocytes # (Auto) 0.78 K/uL (0.11-0.59) Eosinophils # (Auto) 0.02 K/uL (0-0.5) Basophils # (Auto) 0.02 K/uL (0-0.2) RDW Standard Deviation 31.9 fL (36.4-46.3) RDW Coefficient of Variation 15.4 % (11.5-14.5) Immature Granulocyte % (Auto) 0.3 % Immature Granulocyte # (Auto) 0.04 K/uL (0.00-0.02) Hypersegmented Polys 1+ Microcytosis PRESENT Ovalocytes 1+ Anion Gap 6.0 mmol/L (3-11) Est Creatinine Clear Calc Drug Dose 55.1 ml/min Estimated GFR () 62.3 Estimated GFR (Non- 53.8 BUN/Creatinine Ratio 14.4 (10-20) Calcium Level 8.7 mg/dl (8.5-10.1) Total Bilirubin 0.5 mg/dl (0.2-1) Direct Bilirubin 0.2 mg/dl (0-0.2) Aspartate Amino Transf (AST/SGOT) 76 U/L (15-37) Alanine Aminotransferase (ALT/SGPT) 59 U/L (12-78) Alkaline Phosphatase 128 U/L (45-117) Total Creatine Kinase 34 U/L (26-192) Creatine Kinase MB < 0.5 ng/ml (0.5-3.6) Creatine Kinase MB Ratio (0-3.0) Total Protein 6.8 gm/dl (6.4-8.2) Albumin 3.3 gm/dl (3.4-5.0) Lipase 150 U/L (73-393) Thyroid Stimulating Hormone (TSH) 1.450 uIu/ml (0.300-4.500) Prothrombin Time 10.7 SECONDS (9.0-12.0) Prothromb Time International Ratio 1.0 (0.9-1.1) Bedside Troponin I < 0.030 ng/ml (0-0.045) Hepatitis C Antibody Screen NEG (NEG) Urine Color YELLOW Urine Appearance CLEAR (CLEAR) Urine pH 7.0 (4.5-7.5) Urine Specific [place] 1.021 (1.000-1.030) Urine Protein TRACE (NEG) Urine Glucose (UA) NEG (NEG) Urine Ketones NEG (NEG) Urine Occult Blood NEG (NEG) Urine Nitrite NEG (NEG) Urine Bilirubin NEG (NEG) Urine Urobilinogen NEG (NEG) Urine Leukocyte Esterase NEG (NEG) Urine WBC (Auto) 1-5 /hpf (0-5) Urine RBC (Auto) 5-10 /hpf (0-4) Urine Hyaline Casts (Auto) 10-30 /lpf (0-5) Urine Epithelial Cells (Auto) >30 /lpf (0-5) Urine Bacteria (Auto) NEG (NEG) Urine Renal Epithelial Cells /lpf (0-5) Laboratory studies as stated above per my review. Medications Administered Medications (Trade) Dose Ordered Sig/Jevon Route Start Time Stop Time Status Last Admin Dose Admin Sodium Chloride 1,000 ml @ 999 mls/hr Q1H1M STAT IV 12/22/17 10:00 12/22/17 11:00 DC 12/22/17 11:15 999 MLS/HR Sodium Chloride 1,000 ml @ 150 mls/hr Q6H40M ONCE IV 12/22/17 10:00 12/22/17 14:27 DC 12/22/17 11:15 150 MLS/HR Hydrocortisone Sodium Succinate (Solu-Cortef IV) 50 mg NOW STAT IV 12/22/17 11:05 12/22/17 11:07 DC 12/22/17 11:33 50 MG ECG Per My Interpretation Indication: syncope Rate (beats per minute): 69 Rhythm: normal sinus Findings: other (Normal intervals. No ST elevations. No PVCs. ) Comparison ECG Date: Sep 23, 2017 Change: PVCs are now absent. ED Course 0953: Past medical records reviewed. The patient was evaluated in room B6, and a complete history and physical examination were performed. 1000: Ordered Sodium Chloride 1000 ml @ 150 mls/hr IV, Sodium Chloride 1000 ml @ 999 mls/hr IV. 1058: I reassessed the patient. Her has arrived. I spoke with him regarding the patient's syncopal event. He states that the patient has had several syncopal episodes in the past, but the one today occurred more suddenly than normal. He states that the patient normally feels the event coming on before it happens, but this did not occur today. 1105: Ordered Solu-Cortef 50 mg IV. 1150: Upon reevaluation, the patient is resting comfortably. I discussed the results and treatment plan with the patient. She verbalized agreement of the treatment plan. The patient will be evaluated for further management. Medical Decision Differentials include, but are not limited to; syncope, cardiac disease, adrenal disease, infection, and electrolyte or metabolic abnormality. This patient comes in as described above. She was placed in room B6. She is here for treatment and evaluation of syncope. Her said that she collapsed after being on the toilet. There is no seizure. She has passed out before but this had minimal to no prodromal symptoms and was different he thinks. She does have a history of dementia as well. IV access established hydrated IV normal saline. I reviewed her med list and she is on Florinef and they decreased that recently in light of this and I did also give her Solu- Cortef IV in case there was a steroid component. She seem to be doing better with hydration. EKG does not suggest acute coronary syndrome or arrhythmia. She has no acute electrolyte or metabolic abnormalities. CAT scan of her head is unremarkable. I do think she needs to be observed/admitted for further treatment and observation. I did consult the hospitalist to see her in the ER. Medication Reconcilliation Current Medication List: was personally reviewed by me Blood Pressure Screening Patient's blood pressure: Normal blood pressure Blood pressure disposition: Did not require urgent referral Consults Time Called: 1147 Consulting Physician: Jessica Harvey [facility] Hospitalist Returned Call: [phone] Discussed the patient's case. The patient will be evaluated for further management. Impression Primary Impression: Syncope Scribe Attestation The scribe's documentation has been prepared under my direction and personally reviewed by me in its entirety. I confirm that the note above accurately reflects all work, treatment, procedures, and medical decision making performed by me. Departure Information Dispostion Being Evaluated By Hospitalist Referrals Jeanne Drake M.D. (PCP) Patient Instructions My [facility]
[2017-12-22 12:40] VITALS: Ht 165.1 cm; Wt 78.3 kg
[2017-12-22] MEDS ORDERED: POLYETHYLENE (MIRALAX) 17 GM PACK PO PRN (13:00)
[2017-12-22] MEDS ORDERED: ONDANSETRON INJ 2 MG/ML 2 ML VIAL IV PRN (13:00)
[2017-12-22] MEDS ORDERED: IV FLUIDS COMPLETED PRN (13:45)
[2017-12-22 14:03] VITALS: BP 135/82; PULSE 69; TEMP 36.6; O2SAT 95
[2017-12-22 15:08] VITALS: BP 117/75; PULSE 81; TEMP 36.9; O2SAT 99
--- NOTE | 2017-12-22 16:35 | DIAGNOSTIC IMAGING REPORT ---
CHEST 2 VIEWS ROUTINE CLINICAL HISTORY: Trauma. Atypical chest pain. Pleural effusion. COMPARISON STUDY: 12/22/2017 FINDINGS: The heart is normal in size. There is a small right pleural effusion. There are right lower lobe airspace opacities. The left lung appears clear. There is no pneumothorax.[ IMPRESSION: No significant change from the prior study. Persistent small right pleural effusion and right lower lobe airspace opacities. Clinical and imaging follow-up is recommended. Electronically signed by: Chilango Rosenthal M.D. 12/22/2017 4:34 PM Dictated Date/Time: 12/22/2017 4:32 PM
[2017-12-22] MEDS: ASPIRIN 81 MG ECTAB PO SCH (16:43)
[2017-12-22] MEDS: DOCUSATE SODIUM 100 MG CAP PO SCH (16:43)
--- NOTE | 2017-12-22 17:25 | History and Physical ---
History & Physical Date & Time of Service: Dec 22, 2017 at 13:28 Chief Complaint: Syncope Primary Care Physician: Jeanne Drake M.D. History of Present Illness Source: patient, spouse, hospital records Pt is 62 y/o F with PMH dementia, CVA, HLD, hypothyroidism, chronic anemia presented to ER with c/o syncope. History obtained pain has been secondary to patient's dementia. Reports history of recurrent syncope for last couple of years. Usually accompanied with a prodrome of patient reporting "do not feel good" and patient will have syncopal episode. This typically occurs when patient is sitting upright or standing. Diagnosed with orthostatic hypotension in past. Patient has had positive tilt table in past. Has seen cardiology in past for syncope. reports that pt's PCP is worried about sick sinus syndrome. 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 Reported pt on amiodarone in past, however that was discontinued 2/2 hypotension. History hospital admission 09/22/17-10/02/17 for syncopal event and was d/c on florinef 0.2mg daily. reports pt was doing well on that, however still with intermittent syncope. Noticed some LE edema couple of weeks ago and PCP decreased florinef to 0.1mg daily with resolution of LE edema. Today reports was getting pt dressed when she reported "didn't feel good" and he sat her on toilet and pt sat there for approx 5 minutes and seemed fine (was not having BM or urinating). States then pt had syncope and fell on floor and thinks had LOC for approx 1 minute patient was diaphoretic. Reports this was different than her normal syncope as she was sitting for approximately 5 minutes and seemed to be doing okay and then had syncope. Reports usually is diaphoretic after syncopal episodes and sometimes has vomiting after. No vomiting after today's episode. feels patient back in her baseline however is a little more confused since arrival to ER which she reports is not uncommon when patient in different situations. does all of patient's care at home. Patient will typically feed herself. reports patient drinks approximately 30-40 ounces water daily and usually needs prompting to drink fluids other than chocolate milk. Has been denies any known choking or dysphagia problems. Home health nurse coming every other week. Was having in-house PT and OT couple of times a week for ambulatory dysfunction however that was stopped, but patient was to restart physical therapy this week as has been having ataxia to the right. Has been reports history of right-sided hemianopsia sometimes does walk to the right and bumped into the britton but he has has been increased the last couple weeks. denies any noted fever/chills, V/D/C, noted SOB, cough, rhinorrhea or noted changes in weight. Reports patient has not been complaining of any abdominal pain. History EEG on 09/24/17: No seizure activity. History echo 09/2017: EF 60-65%. Past Medical/Surgical History Medical Problems: (1) Acute electrocardiogram changes (2) Advanced dementia (3) Chest discomfort (4) CVA (cerebral infarction) (5) Dizziness (6) HLD (hyperlipidemia) (7) Hypothyroidism (8) PVC (premature ventricular contraction) (9) Syncopal episodes (10) Syncope (11) Vomiting Surgical Problems: (1) H/O tubal ligation Family History Alzheimer's disease Social History Smoking Status: Never Smoker Smokeless Tobacco Use: No Alcohol Use: none Drug Use: none Marital Status: Housing status: lives with significant other Occupational Status: retired Allergies Coded Allergies: Penicillins (Verified Allergy, Unknown, unknown, 09/23/17) Home Medications Scheduled Aspirin (Aspirin Ec), 81 MG PO DAILY Docusate Sodium (Stool Softener), 100 MG PO QAM Donepezil Hydrochloride (Aricept), 23 MG PO HS Doxepin Hcl (Doxepin), 75 MG PO HS Fludrocortisone Acetate (Florinef), 0.1 MG PO QAM Levothyroxine Sodium (Synthroid), 50 MCG PO DAILY Memantine (Namenda), 10 MG PO BID Multiple Vitamins W/ Minerals (Multi For Her), 1 TAB PO DAILY Sertraline (Zoloft), 100 MG PO DAILY Simvastatin (Zocor), 20 MG PO HS Review of Systems Further ROS cannot be obtained secondary to patient's dementia. Physical Exam Vital Signs Date Time Temp Pulse Resp B/P (MAP) Pulse Ox O2 Delivery O2 Flow Rate FiO2 12/22/17 13:16 70 18 142/58 94 Room Air 12/22/17 13:05 67 12/22/17 12:40 Room Air 12/22/17 12:30 63 18 130/71 98 Room Air 12/22/17 11:28 68 16 126/75 98 Room Air 12/22/17 10:00 72 12/22/17 09:53 37.0 73 16 103/45 99 Room Air 12/22/17 09:53 99 Room Air 12/22/17 09:49 72 16 101/51 98 Room Air 78 92/52 General Appearance: WD/WN, no apparent distress Head: normocephalic, + pertinent finding (no lacerations or hematomas noted) Eyes: normal inspection, PERRL, sclerae normal, + pertinent finding (Unable to test EOMs patient cannot follow finger) ENT: pharynx normal, + pertinent finding (Mucous membranes mildly dry, gross hearing appears intact) Neck: supple, no JVD, trachea midline Respiratory/Chest: chest non-tender, lungs clear, normal breath sounds, no respiratory distress, no accessory muscle use Cardiovascular: regular rate, rhythm, no murmur, normal peripheral pulses Abdomen/GI: normal bowel sounds, non tender, soft Genitourinary - Female: external genitalia normal Back: no CVA tenderness Extremities/Musculoskelatal: no calf tenderness, normal capillary refill, normal range of motion Neurologic/Psych: alert (Patient pleasantly confused), + pertinent finding ( Oriented to person. Difficult to get patient to follow commands, repeated encouraging and prompting. 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 No noted discomfort with range of motion bilateral hips and knees, ankles and bilateral shoulder, elbow, wrist) Skin: warm/dry, + pertinent finding (Right upper inner thigh with approximately 0.5 cm abrasion without surrounding erythema, no discharge) Diagnostics Laboratory Results Results Past 24 Hours Test 12/22/17 10:38 12/22/17 10:40 12/22/17 11:24 Range/Units White Blood Count 12.45 4.8-10.8 K/uL Red Blood Count 5.92 4.2-5.4 M/uL Hemoglobin 10.9 12.0-16.0 g/dL Hematocrit 34.3 37-47 % Mean Corpuscular Volume 57.9 80-100 fL Mean Corpuscular Hemoglobin 18.4 25-34 pg Mean Corpuscular Hemoglobin Concent 31.8 32-36 g/dl Platelet Count 226 130-400 K/uL Neutrophils (%) (Auto) 85.6 % Lymphocytes (%) (Auto) 7.4 % Monocytes (%) (Auto) 6.3 % Eosinophils (%) (Auto) 0.2 % Basophils (%) (Auto) 0.2 % Neutrophils # (Auto) 10.67 1.4-6.5 K/uL Lymphocytes # (Auto) 0.92 1.2-3.4 K/uL Monocytes # (Auto) 0.78 0.11-0.59 K/uL Eosinophils # (Auto) 0.02 0-0.5 K/uL Basophils # (Auto) 0.02 0-0.2 K/uL RDW Standard Deviation 31.9 36.4-46.3 fL RDW Coefficient of Variation 15.4 11.5-14.5 % Immature Granulocyte % (Auto) 0.3 % Immature Granulocyte # (Auto) 0.04 0.00-0.02 K/uL Hypersegmented Polys 1+ Microcytosis PRESENT Ovalocytes 1+ Sodium Level 139 136-145 mmol/L Potassium Level 3.8 3.5-5.1 mmol/L Chloride Level 107 98-107 mmol/L Carbon Dioxide Level 26 21-32 mmol/L Anion Gap 6.0 3-11 mmol/L Blood Urea Nitrogen 16 7-18 mg/dl Creatinine 1.10 0.60-1.20 mg/dl Est Creatinine Clear Calc Drug Dose 55.1 ml/min Estimated GFR () 62.3 Estimated GFR (Non- 53.8 BUN/Creatinine Ratio 14.4 10-20 Random Glucose 125 70-99 mg/dl Calcium Level 8.7 8.5-10.1 mg/dl Total Bilirubin 0.5 0.2-1 mg/dl Direct Bilirubin 0.2 0-0.2 mg/dl Aspartate Amino Transf (AST/SGOT) 76 15-37 U/L Alanine Aminotransferase (ALT/SGPT) 59 12-78 U/L Alkaline Phosphatase 128 45-117 U/L Total Creatine Kinase 34 26-192 U/L Creatine Kinase MB < 0.5 0.5-3.6 ng/ml Creatine Kinase MB Ratio 0-3.0 Total Protein 6.8 6.4-8.2 gm/dl Albumin 3.3 3.4-5.0 gm/dl Lipase 150 73-393 U/L Bedside Troponin I < 0.030 0-0.045 ng/ml Urine Color YELLOW Urine Appearance CLEAR CLEAR Urine pH 7.0 4.5-7.5 Urine Specific [place] 1.021 1.000-1.030 Urine Protein TRACE NEG Urine Glucose (UA) NEG NEG Urine Ketones NEG NEG Urine Occult Blood NEG NEG Urine Nitrite NEG NEG Urine Bilirubin NEG NEG Urine Urobilinogen NEG NEG Urine Leukocyte Esterase NEG NEG Urine WBC (Auto) 1-5 0-5 /hpf Urine RBC (Auto) 5-10 0-4 /hpf Urine Hyaline Casts (Auto) 10-30 0-5 /lpf Urine Epithelial Cells (Auto) >30 0-5 /lpf Urine Bacteria (Auto) NEG NEG Urine Renal Epithelial Cells 0-5 /lpf Microbiology Results 12/22/17 Urine Culture, Received Pending Diagnostic Radiology CT HEAD: Impression: Age-related change. Atrophy. No acute process. SINGLE VIEW CXR: IMPRESSION: 1. Interval development of a small right pleural effusion. Right basilar densities are nonspecific and could represent atelectasis or pneumonia. 2. Low lung volumes. 3. Mild cardiomegaly. 2 VIEWS CXR: EKG EKG: NSR, rate 69 Impression Assessment and Plan SYNCOPE Patient with history recurrent syncope, been evaluated in the past and diagnosed with syncope secondary to orthostasis. Patient on Florinef 0.2 mg was recently decreased to 0.1 mg secondary to lower extremity edema which had improved with decrease med. Patient with history of syncopal episode this morning after sitting for approximately 5 minutes which has been reports is different than normal syncope. In ER glucose 125. Negative troponin. CT head no acute changes. UA negative, pending urine culture. BP 101/51 supine, 92/52 sitting. Patient given 1 L NSS in the ER. Repeat BP 126/75. History EEG on 09/24/17: No seizure activity. History echo 09/2017: EF 60-65%. Syncope probably secondary to orthostasis or autonomic dysfunction.Telemetry to monitor for cardiac arrhythmias -IVF -Orthostatics -Will put back on Florinef 0.2 mg -Cardiology consult -Monitor CBC, PRP POSSIBLE PNEUMONIA WBC: 12. Patient afebrile. Pulse 72, respirations 16. O2 sat 98% on RA. No reported cough or known fevers or known choking, however pt with increased weakness past 1-2 weeks. Portable CXR: 1. Interval development of a small right pleural effusion. Right basilar densities are nonspecific and could represent atelectasis or pneumonia. 2. Low lung volumes. 3. Mild cardiomegaly. 2 view CXR added for further clarification -MRSA swab -pending blood cultures -no sputum production at this time for sputum culture, however ordered if pt can produce -Levaquin -IVF -cbc in am DEMENTIA -Continue home meds HYPOTHYROIDISM TSH: 1.4 -Continue levothyroxine HLD -Continue statin CHRONIC ANEMIA Hgb: 10.9 (~baseline). No active bleeding -Monitor H&H DVT Prophylaxis -Lovenox SQ Disposition admit tele Full Code as per discussion with pt/ Follows with Dr Drake for routine care Pt was seen with Dr Saavedra. See addendum ADDENDUM: I have seen and examined the patient above and agree with the assessment and plan with the following exceptions. Physical exam reveals a clearly demented female in no acute distress who does not know where she is or the date. She does not recognize her and has difficulty following instructions such as gripping my fingers. She cannot look across the room to where her is sitting. reports that over the last 2-3 weeks her gait has gotten worse and she has had more urinary incontinence. At baseline she walks with him holding her hands but does not require an assistive device. She graduated from [facility] second week in October and did well up until couple weeks ago when her gait change to a more shuffling gait. She appears more confused after this syncopal episode then and priors per . Chest x- ray shows a new right pleural effusion with right basilar opacities, and although the patient has not had classic symptoms of coughing fevers and chills , she is unable to give us an accurate history. With her syncopal episode in the context of the dementia and worsening overall functional status at home, I believe it is reasonable to treat her with a course of antibiotics for pneumonia. Appreciate cardiology involvement who is considering loop recorder for this patient with multiple readmissions for syncope of unknown origin. DO Quentin Advanced Directives Existing Living Will: Yes Existing Power of Counter Checker: Yes Resuscitation Status VTE Prophylaxis Will order VTE Prophylaxis: Yes Additional Copies To Jeanne Drake M.D.
[2017-12-22] MEDS ORDERED: SODIUM CHLORIDE 0.9% 1000ML 1,000 ML IV SCH (17:30)
--- NOTE | 2017-12-22 17:44 | CARDIOLOGY CONSULTATION ---
DATE OF CONSULTATION: 12/22/2017 TIME: 15:56 p.m. CONSULTING PHYSICIAN: Dr. Marcelino. REASON FOR CONSULTATION: Syncope. PRIMARY CAMP MAINTENANCE SUPERVISOR: Dr. Wellington. HISTORY OF PRESENT ILLNESS: Ms. Ivy is a 62-year-old female with advanced dementia and syncope who presented to [facility] earlier today with syncope. She is a very poor historian and is not aware of her current location, her 's name, and cannot recall her children. Fortunately, her was available via telephone and presented to the room and was able to give some history. She had been seen in the past by Dr. Wellington and had a tilt table test that demonstrated orthostatic hypotension, but did not reproduce her symptoms during that particular test. She has had syncope for approximately 3-4 years according to her . He states that typically symptoms occur while standing and would often occur after taking a warm shower. She was able to typically warn him that she did not feel well and he would sit her down and sometimes avoid syncope. Other times, she would have syncope and recovered rather quickly after losing consciousness. At some point recently, she was placed on fludrocortisone and she was taking 0.2 mg and for the past few months has been doing better in that regard, but approximately a few weeks ago she developed swelling in her feet. Her PCP reduced fludrocortisone to 0.1 mg and her swelling improved. Unfortunately, she had a syncopal episode today. Her syncopal episode today occurred a few minutes after having a bowel movement. She remained seated on the commode and he was able to change her clothes and wash her out. He was preparing to brush her teeth and while in a seated position, she lost consciousness and fell to the floor. It was witnessed by her . He believes that she lost consciousness for approximately 1 minute, but did not quickly returned to baseline. She typically is more responsive when she wakes up but at this time was less responsive and he believes she is still less verbally responsive than her usual baseline. She also is typically mildly diaphoretic, but today was very very diaphoretic. She has not reported any recent chest pain. He has not noted her to be short of breath. There has not been any recent bleeding or fever that he knows of. REVIEW OF SYSTEMS: As above and otherwise unobtainable due to the patient's mental status/dementia, as she is a poor historian. PAST MEDICAL HISTORY: 1. Dementia. 2. Syncope. 3. Orthostatic hypotension. 4. Dyslipidemia. 5. Hypothyroidism. 6. Frequent premature ventricular contractions in the past and in the past was taking amiodarone which has since been discontinued. 7. Status post tubal ligation. HOME MEDICATIONS: Include aspirin 81 mg daily, fludrocortisone 0.1 mg daily, Synthroid 50 mcg daily, sertraline 100 mg daily, Zocor 20 mg at bedtime, Aricept 23 mg daily, Namenda 10 mg b.i.d. INPATIENT MEDICATIONS: Include aspirin 81 mg daily, fludrocortisone 0.2 mg daily, Synthroid 50 mcg daily, Zoloft 100 mg daily, Zocor 20 mg daily. SOCIAL HISTORY: states that she has not smoked. No alcohol. No drugs. She has 2 biologic sons. They do not have any children together. She lives at home with him. There are home health nurses coming to the home to help. FAMILY HISTORY: Mother had COPD according to her . PHYSICAL EXAMINATION: VITAL SIGNS: Temperature is 36.9 degrees, heart rate 81 beats per minute, respiration rate 20, blood pressure 117/75 mmHg, oxygen saturation 99% on room air. Weight 79.1 kg. GENERAL: No acute distress. She is alert and oriented to herself only. She did not recall her 's name. She did not know the month, year or the fact that she was in the hospital. HEENT: Anicteric sclerae. NECK: No appreciable JVD. No bruits. Normal carotid upstrokes bilaterally. CARDIAC EXAMINATION: PMI was nonpalpable. There was no ventricular heave. Regular, normal S1, S2. There was a 1/6 systolic murmur best heard at the right upper sternal border. No rubs or gallops. LUNGS: Clear to auscultation bilaterally without wheezes, rales or rhonchi. ABDOMEN: Soft, nontender, nondistended, normal active bowel sounds. EXTREMITIES: 2+ radial pulses bilaterally. 2+ dorsalis pedis pulses bilaterally. No cyanosis, edema. No palpable cords. Telemetry personally reviewed. No arrhythmia. ECG: Personally reviewed on presentation demonstrating sinus rhythm at 69 beats per minute. Echocardiogram 09/24/2017 reported normal LV systolic function and wall motion. EF 60%-65%. No valvular disease reported. Chest x-ray reports small right pleural effusion with right basilar densities per radiology. Mild cardiomegaly. Chest x-ray imaging personally reviewed. Pleural effusion noted. Right basilar opacities noted. ASSESSMENT AND PLAN: 1. Syncope: In the past, she was noted to be orthostatic, but yesterday's episode occurred while in a seated position. Cannot rule out vasovagal component as it did occur after a bowel movement, but she had been sitting for several minutes afterwards. Cannot definitively rule out arrhythmia. She has not had an event while on a monitor. Could consider loop recorder. Symptoms overall have been better on fludrocortisone 0.2 mg, but she did have some swelling. For now, would continue current medications. Electrophysiology will see her tomorrow to decide if loop recorder would be a reasonable diagnostic procedure versus other options. Would have her remain in bed and that she has assistance from staff members while hospitalized. 2. Orthostatic hypotension: This has been documented in the past. She is on fludrocortisone and overall her states that her symptoms have been better on fludrocortisone and that today's event was different as syncope occurred while sitting. Would continue with fludrocortisone for now. Remain well hydrated. Can liberalize salt in her diet. 3. Disposition: Cardiology will continue to follow. Electrophysiology to see her tomorrow. Greater than 40 minutes time spent with greater than 50% of the time spent counseling patient and coordinating care as well as meeting with her and also discussed and also speaking with him on the phone before meeting with him in person at the bedside. Thanks for allowing me to participate in the care of Ms. Berger. Sincerely,
[2017-12-22] MEDS: LEVOFLOXACIN / D5W 750 MG in PREMIXED IN D5W 150 ML IV SCH (18:18)
[2017-12-22 19:37] VITALS: BP 133/82; PULSE 65; TEMP 36.3; O2SAT 95
[2017-12-22] MEDS: DOXEPIN HCL 75 MG CAP PO SCH (20:25)
[2017-12-22] MEDS: SIMVASTATIN 20 MG TAB PO SCH (20:25)
[2017-12-22] MEDS: MEMANTINE 10 MG TAB PO SCH (20:25)
[2017-12-22] MEDS: ENOXAPARIN 40 MG/0.4 ML SYR SC SCH (20:26)
[2017-12-22] MEDS: DONEPEZIL HCL 23 MG TAB PO SCH (20:26)
[2017-12-23 00:27] VITALS: BP 104/84; PULSE 54; TEMP 36.8; O2SAT 97
[2017-12-23 02:54] VITALS: BP 138/82; PULSE 72; TEMP 37.2; O2SAT 99
[2017-12-23] MEDS: LEVOTHYROXINE 50 MCG TAB PO SCH (06:20)
[2017-12-23 06:23] LABS: HEMATOCRIT 32.1 % (37-47); MEAN CELL VOLUME 57.8 fL (80-100); MEAN CORPUSCULAR HGB CONC 31.2 g/dl (32-36); PLATELET COUNT 194 K/uL (130-400); RED CELL DISTRIBUTION WIDTH CV 15.3 % (11.5-14.5); RED CELL DISTRIBUTION WIDTH SD 31.7 fL (36.4-46.3)
[2017-12-23 07:03] LABS: CALCIUM 8.7 mg/dl (8.5-10.1); CREATININE 0.76 mg/dl (0.60-1.20); POTASSIUM 3.4 mmol/L (3.5-5.1)
[2017-12-23] MEDS: DOCUSATE SODIUM 100 MG CAP PO SCH (07:45)
[2017-12-23] MEDS: CEROVITE ADV FORMULA TAB PO SCH (07:46)
[2017-12-23] MEDS: ASPIRIN 81 MG ECTAB PO SCH (07:46)
[2017-12-23] MEDS: FLUDROCORTISONE ACETATE 0.1 MG TAB PO SCH (07:46)
[2017-12-23] MEDS: SERTRALINE HCL 100 MG TAB PO SCH (07:47)
[2017-12-23] MEDS: MEMANTINE 10 MG TAB PO SCH ×2 (07:49→20:39)
[2017-12-23 08:19] VITALS: BP 132/81; PULSE 80; TEMP 36.7; O2SAT 95
[2017-12-23 11:39] VITALS: BP 181/76; PULSE 64; TEMP 36.7; O2SAT 97
--- NOTE | 2017-12-23 13:05 | Cardiology Follow-Up ---
Subjective Date of Service: Dec 23, 2017. Pt evaluation today including: conversation w/ patient, conversation w/ family , physical exam, lab review, review of studies, review of inpatient medication list History of Present Illness This is a very pleasant 62-year-old woman who I believe has Alzheimer's and significant dementia and therefore her is the primary historian, he is a nurse. He reports that she was diagnosed as having a stroke a number of years ago, including visual field defects, however based on her neurologic evaluation her main problem is Alzheimer's type dementia. She has been having difficulty with loss of consciousness for several years, the episodes however have been becoming more frequent. She did have a tilt test performed 09/04/2016, this documented a significant drop in blood pressure and an increase in heart rate consistent with orthostasis although loss of consciousness was not observed. This was however felt to be a likely cause of her loss of consciousness. She also has history of frequent premature ventricular beats and was on amiodarone, but no longer is. She has had several episodes of syncope for which she was hospitalized this year , as well as others which did not require hospitalization. She is on Florinef ( which was recently reduced) and that may have helped somewhat. She presented now with a somewhat different episode that occurred while she was sitting, but that still could have the same mechanism. Her feels it was quite different than what she has experienced before, it was more prolonged, it was while she was sitting and she was very diaphoretic with it. He did not check her pulse. She cannot provide a history. Social History Smoking Status: Never Smoker History of Alcohol Use: No Review of Systems Review of systems would be unreliable given her mental status Medications Cardiovascular: Item Value Date Time Fludrocortisone 0.2 mg 12/23/17 0900 Acetate QAM/PO 12/23/17 0746 (Florinef Tab) Simvastatin 20 mg 12/22/17 2100 (Zocor Tab) HS/PO 12/22/172024 Aspirin 81 mg 12/22/17 1500 (Ecotrin Tab) DAILY/PO 12/23/17 0746 Objective Vital Signs Past 12 Hours Date Time Temp Pulse Resp B/P (MAP) Pulse Ox O2 Delivery O2 Flow Rate FiO2 12/23/17 12:00 Room Air 12/23/17 11:39 36.7 64 18 181/76 (111) 97 Room Air 12/23/17 08:19 36.7 80 18 132/81 (98) 95 Room Air 12/23/17 08:00 Room Air 12/23/17 04:00 Room Air 12/23/17 02:54 37.2 72 16 138/82 (100) 99 Last Recorded Weight-Kilograms: 79.800 Physical Exam Constitutional: Level of Distress: NAD Lungs: Auscultation: breath sounds normal Cardiovascular: Heart Auscultation: RRR Extremities: no edema Data Laboratory Results: Last 24 Hours Test 12/23/17 06:09 White Blood Count 9.10 K/uL Red Blood Count 5.55 M/uL Hemoglobin 10.0 g/dL Hematocrit 32.1 % Mean Corpuscular Volume 57.8 fL Mean Corpuscular Hemoglobin 18.0 pg Mean Corpuscular Hemoglobin Concent 31.2 g/dl RDW Standard Deviation 31.7 fL RDW Coefficient of Variation 15.3 % Platelet Count 194 K/uL Sodium Level 142 mmol/L Potassium Level 3.4 mmol/L Chloride Level 110 mmol/L Carbon Dioxide Level 28 mmol/L Anion Gap 4.0 mmol/L Blood Urea Nitrogen 9 mg/dl Creatinine 0.76 mg/dl Est Creatinine Clear Calc Drug Dose 80.1 ml/min Estimated GFR () 97.4 Estimated GFR (Non- 84.1 BUN/Creatinine Ratio 12.0 Random Glucose 96 mg/dl Calcium Level 8.7 mg/dl EKG: Sinus rhythm at 61 bpm, normal ECG Telemetry reviewed: She is predominantly in sinus rhythm, however she did have a brief period of junctional bradycardia this morning at around 830. During this episode the heart rate dropped to about 45 bpm transiently with loss of P waves. Assessment and Plan 1. Syncope: Or syncopal episodes may be multifactorial, she does have orthostasis and she may have a vagal component as well. She may have responded somewhat to Florinef but had edema while taking it. This morning we did observe transient junctional bradycardia, this could be vaguely mediated but could also be due to sinus node dysfunction and could result in some degree of hemodynamic compromise with loss of normal AV synchrony and bradycardia. At this point a pacemaker might be a consideration. Newer pacemakers have algorithms which may be very beneficial in reducing some of the blood pressure drop associated with a vagal response as well as maintenance of AV synchrony and preventing bradycardia, and in her case perhaps some degree of benefit may be sufficient to help limit her syncopal events. I did discuss pacemaker implantation with her and her (she was not really part of the conversation). I reviewed the indications, procedure, risks alternatives and he understands and feels we should proceed. He is power of real estate attorney and provided consent for the procedure. I also discussed conscious sedation with her and her and he understands and he signed the form as her power of real estate attorney. I will plan pacemaker implantation tomorrow. Thank you for allowing me to participate in her care.
[2017-12-23 16:55] VITALS: BP 129/77; PULSE 117; TEMP 37.1; O2SAT 96
[2017-12-23] MEDS: LEVOFLOXACIN / D5W 750 MG in PREMIXED IN D5W 150 ML IV SCH (17:06)
--- NOTE | 2017-12-23 17:32 | Progress Note ---
Internal Med Progress Note Date of Service: Dec 23, 2017. Provider Documentation: SUBJECTIVE: Patient has baseline dementia, very pleasant, does not verbalize any complaint No fever or chills Vitals remained stable No episode of syncope since admission OBJECTIVE: Vital Signs-as noted below Exam: General-no apparent distress Eyes-sclera nonicteric, pupils reactive to light ENT-moist oral mucosa Neck-no JVD Lungs-clear to auscultate, no rales or wheeze Heart-regular S1-S2 Abdomen-soft nontender Extremities-no lower extremity edema Neuro-baseline dementia, no focal neurological deficit Lab data as noted below. ASSESSMENT & PLAN: SYNCOPE history recurrent syncope,/possible bradycardic episodes leading to syncope been evaluated in the past and diagnosed with syncope secondary to orthostasis. was on Florinef 0.2 mg was recently decreased to 0.1 mg secondary to lower extremity edema which had improved with decrease med. presented with syncopal episode CT head no acute changes. UA negative, pending urine culture. Orthostatic vitals : BP 101/51 supine, 92/52 sitting. Patient given 1 L NSS in the ER. BP improved Repeat BP 126/75. EEG on 09/24/17: No seizure activity. echo 09/2017: EF 60-65%. appreciate input form Cardiology telemonitor shows transient junctional bradycardia will consider for pacemaker placement after discussion with the COMMUNITY ACQUIRED PNEUMONIA Portable CXR: 1. Interval development of a small right pleural effusion. Right basilar densities are nonspecific and could represent atelectasis or pneumonia. 2. Low lung volumes. 3. Mild cardiomegaly. -empiric abx with Levaquin DEMENTIA -Continue home meds HYPOTHYROIDISM TSH: 1.4 -Continue levothyroxine HLD -Continue statin CHRONIC ANEMIA Hgb: 10.9 (~baseline). No active bleeding - DVT Prophylaxis -Lovenox SQ FULL CODE Disposition expected to return home when medically stable lives with her -who is the healthcare market consultant Follows with Dr Drake for routine care Vital Signs: Date Time Temp Pulse Resp B/P (MAP) Pulse Ox O2 Delivery O2 Flow Rate FiO2 12/25/17 04:00 Room Air 12/25/17 03:43 37.0 81 18 106/72 (83) 95 12/25/17 01:29 36.7 12/25/17 00:04 38.0 87 18 137/89 (105) 92 12/25/17 00:01 Room Air 12/24/17 20:40 36.8 84 16 125/61 (82) 95 Room Air 12/24/17 20:00 Room Air 12/24/17 16:00 Room Air 12/24/17 15:52 36.5 71 16 136/84 (101) 93 Room Air 12/24/17 14:46 96 Room Air 12/24/17 14:41 96 Room Air 12/24/17 14:36 68 16 93/80 (84) 96 Room Air 12/24/17 12:00 Room Air 12/24/17 11:00 37.0 60 18 101/66 (78) 99 12/24/17 08:00 Room Air Lab Results: Results Past 24 Hours Test 12/24/17 06:46 12/24/17 21:05 12/25/17 05:57 Range/Units Bedside Glucose 101 100 70-90 mg/dl White Blood Count 8.91 4.8-10.8 K/uL Red Blood Count 5.29 4.2-5.4 M/uL Hemoglobin 9.6 12.0-16.0 g/dL Hematocrit 30.1 37-47 % Mean Corpuscular Volume 56.9 80-100 fL Mean Corpuscular Hemoglobin 18.1 25-34 pg Mean Corpuscular Hemoglobin Concent 31.9 32-36 g/dl RDW Standard Deviation 31.3 36.4-46.3 fL RDW Coefficient of Variation 15.1 11.5-14.5 % Platelet Count 266 130-400 K/uL
[2017-12-23 20:14] VITALS: BP 112/61; PULSE 86; TEMP 37.6; O2SAT 96
[2017-12-23] MEDS: DONEPEZIL HCL 23 MG TAB PO SCH (20:39)
[2017-12-23] MEDS: DOXEPIN HCL 75 MG CAP PO SCH (20:39)
[2017-12-23] MEDS: ENOXAPARIN 40 MG/0.4 ML SYR SC SCH (20:39)
[2017-12-23] MEDS: SIMVASTATIN 20 MG TAB PO SCH (20:39)
[2017-12-24 00:53] VITALS: BP 109/70; PULSE 76; TEMP 36.6; O2SAT 92
[2017-12-24] MEDS: ACETAMINOPHEN 325 MG TAB PO PRN ×2 (03:53→23:48)
[2017-12-24 04:30] VITALS: BP 113/74; PULSE 70; TEMP 37.4; O2SAT 94
[2017-12-24] MEDS ORDERED: CLINDAMYCIN 600 MG/54 ML D5W IV SCH (06:00)
[2017-12-24] MEDS: LEVOTHYROXINE 50 MCG TAB PO SCH (06:01)
[2017-12-24] MEDS ORDERED: LACTATED RINGER'S 1000ML 1,000 ML IV ONE (08:00)
[2017-12-24] MEDS: CEROVITE ADV FORMULA TAB PO SCH (09:00)
[2017-12-24] MEDS: SERTRALINE HCL 100 MG TAB PO SCH (10:06)
[2017-12-24] MEDS: FLUDROCORTISONE ACETATE 0.1 MG TAB PO SCH (10:06)
[2017-12-24] MEDS: DOCUSATE SODIUM 100 MG CAP PO SCH (10:06)
[2017-12-24] MEDS: MEMANTINE 10 MG TAB PO SCH ×2 (10:06→19:22)
[2017-12-24] MEDS: ASPIRIN 81 MG ECTAB PO SCH (10:07)
[2017-12-24 11:00] VITALS: BP 101/66; PULSE 60; TEMP 37; O2SAT 99
--- NOTE | 2017-12-24 13:20 | Cardiology Follow-Up ---
Subjective Date of Service: Dec 24, 2017. Pt evaluation today including: conversation w/ patient, conversation w/ family , physical exam, lab review, review of studies, review of inpatient medication list History of Present Illness This is a very pleasant 62-year-old woman who I believe has Alzheimer's and significant dementia and therefore her is the primary historian, he is a nurse. He reports that she was diagnosed as having a stroke a number of years ago, including visual field defects, however based on her neurologic evaluation her main problem is Alzheimer's type dementia. She has been having difficulty with loss of consciousness for several years, the episodes however have been becoming more frequent. She did have a tilt test performed 09/04/2016, this documented a significant drop in blood pressure and an increase in heart rate consistent with orthostasis although loss of consciousness was not observed. This was however felt to be a likely cause of her loss of consciousness. She also has history of frequent premature ventricular beats and was on amiodarone, but no longer is. She has had several episodes of syncope for which she was hospitalized this year , as well as others which did not require hospitalization. She is on Florinef ( which was recently reduced) and that may have helped somewhat. She presented now with a somewhat different episode that occurred while she was sitting, but that still could have the same mechanism. Her feels it was quite different than what she has experienced before, it was more prolonged, it was while she was sitting and she was very diaphoretic with it. He did not check her pulse. She cannot provide a history. On telemetry monitoring she was observed to have brief periods of junctional bradycardia in the 40s, one episode yesterday morning and one episode during the night. These were evidently asymptomatic however she has been in bed. Today she is comfortable and has no complaints. Social History Smoking Status: Never Smoker History of Alcohol Use: No Review of Systems Respiratory: No shortness of breath Cardiac: No chest pain Review of systems would be unreliable given her mental status Medications Cardiovascular: Item Value Date Time Fludrocortisone 0.2 mg 12/23/17 0900 Acetate QAM/PO 12/24/17 1006 (Florinef Tab) Simvastatin 20 mg 12/22/172099 (Zocor Tab) HS/PO 12/23/172038 Enoxaparin Sodium 40 mg 12/22/171999 (Lovenox Inj) DAILY@SC 12/23/172038 Aspirin 81 mg 12/22/17 1500 (Ecotrin Tab) DAILY/PO Objective Vital Signs Past 12 Hours Date Time Temp Pulse Resp B/P (MAP) Pulse Ox O2 Delivery O2 Flow Rate FiO2 12/24/17 12:00 Room Air 12/24/17 11:00 37.0 60 18 101/66 (78) 99 12/24/17 08:00 Room Air 12/24/17 04:30 37.4 70 18 113/74 (87) 94 12/24/17 04:00 Room Air Last Recorded Weight-Kilograms: 79.400 Physical Exam Constitutional: Level of Distress: NAD Lungs: Auscultation: breath sounds normal Cardiovascular: Heart Auscultation: RRR Extremities: no edema Data Laboratory Results: Last 24 Hours Test 12/23/17 21:03 12/24/17 06:46 Bedside Glucose 101 mg/dl 101 mg/dl EKG: Sinus rhythm, normal ECG Telemetry reviewed: Sinus rhythm predominantly, one reported episode of junctional rhythm overnight. Assessment and Plan 1. Syncope: Her syncopal episodes may be multifactorial, she does have orthostasis and she may have sinus node dysfunction as well as a vagal component as well. She may have responded somewhat to Florinef but had edema while taking it. We did observe transient junctional bradycardia, this could be vagally mediated but could also be due to sinus node dysfunction and could result in some degree of hemodynamic compromise due to loss of normal AV synchrony and bradycardia. At this point a pacemaker should be considered. Newer pacemakers have algorithms which may be very beneficial in reducing some of the blood pressure drop associated with a vagal response as well as maintenance of AV synchrony and preventing bradycardia, and in her case perhaps some degree of benefit may be sufficient to help limit her syncopal events. I had discussed this with her yesterday and set her up for the procedure today. I reviewed it again with him today and he is in agreement and has no questions about the procedure. I will plan pacemaker implantation today. Thank you for allowing me to participate in her care.
--- NOTE | 2017-12-24 13:31 | Pre Sedation Assessment ---
Pre Sedation Assessment General Date of Sedation: Dec 24, 2017. Vital Signs Past 12 Hours Date Time Temp Pulse Resp B/P (MAP) Pulse Ox O2 Delivery O2 Flow Rate FiO2 12/24/17 12:00 Room Air 12/24/17 11:00 37.0 60 18 101/66 (78) 99 12/24/17 08:00 Room Air 12/24/17 04:30 37.4 70 18 113/74 (87) 94 12/24/17 04:00 Room Air Review Cardiovascular: regular rate, rhythm Lungs: lungs clear Pre-Sedation Airway Assessment Smoking Status: Never Smoker Hx of Sleep Apnea: No Hx of difficult intubation: No Short Thick Neck: No Thyro-mental Distance: > 3 Finger Breadths Mallampati Classification: Class II ASA Classification: Class II NPO Status Date of Last Intake of Fluids: Dec 23, 2017 Date of Last Intake of Solids: Dec 23, 2017 Procedure Planning Contraindications for Sedation: None Current Medications Reviewed: Yes Notes The planned sedation has been discussed with the patients and POA. Informed Consent was obtained. I have identified the patient, determined the appropriateness of sedation and have assessed the patient immediately prior to the procedure. All medicine(s) and interventions are by my order.
[2017-12-24] MEDS ORDERED: FENTANYL CITRATE INJ 50 MCG/1 ML 2 ML VIAL ONE (13:35)
[2017-12-24] MEDS ORDERED: BACITRACIN OINT 0.9 GM PKT ONE (13:35)
[2017-12-24] MEDS ORDERED: LIDOCAINE HCL 1% 20 ML VIAL ONE (13:35)
[2017-12-24] MEDS ORDERED: MIDAZOLAM HCL 5 MG/ML 1 ML VIAL ONE (13:35)
[2017-12-24] MEDS ORDERED: BACITRACIN 50000 UNIT VIAL ONE (13:35)
--- NOTE | 2017-12-24 14:44 | [facility] Operative Report ---
Operative Report Operative Date Dec 24, 2017. Pre-Operative Diagnosis Sinus node dysfunction Post-Operative Diagnosis Same Procedure(s) Performed Dual-chamber pacemaker implantation Surgeon Dr. Wellington [employer] Surgeon(s) None Estimated Blood Loss 20 cc Findings Good lead position, good measurements Specimens None Anesthesia Local with sedation Complication(s) None Disposition PCU Description of Procedure After obtaining informed consent for the procedure, the patient was brought to the laboratory and prepped and draped in the standard sterile manner. The left prepectoral region was anesthetized with 1% lidocaine local anesthetic and left axillary venipuncture was performed by percutaneous technique and a guidewire placed through the left subclavian vein into the superior vena cava. The area was further infiltrated with 1% lidocaine local anesthetic and a 5 cm incision was made parallel to the left clavicle and 2 cm below it and carried down to the anterior pectoralis fascia. A pacemaker pocket was formed by blunt dissection anterior to the pectoralis fascia and a bacitracin-soaked sponge (50, 000 units in 50 cc normal saline solution) was placed in the pocket. An 8 [place] Medtronic lead introducer was placed over the guidewire into the left subclavian vein, the dilator and guidewire were removed and a bipolar active fixation steroid tipped ventricular lead was advanced through the introducer into the superior vena cava. A guidewire was placed through the introducer and the introducer was stripped from the lead and guidewire. A 7 [place] Medtronic lead introducer was placed over the guidewire into the left subclavian vein, the dilator and guidewire were removed and a bipolar active fixation steroid tipped atrial lead was advanced through the introducer into the superior vena cava. A guidewire was placed back through the introducer and the introducer was stripped from the lead and guidewire. Using a curved stylette the ventricular lead was advanced through the right ventricular outflow tract into the pulmonary artery and then using a straight stylette was positioned in the right ventricular apex. The screw was extended fixing the lead in position. Pacing and sensing thresholds were evaluated in bipolar configuration and are recorded on the implant data sheet. Using a curved stylette the atrial lead was positioned in the region of the atrial appendage and the screw extended fixing the lead in position. Pacing and sensing thresholds were evaluated in bipolar configuration and are recorded on the implant data sheet. Once the leads were in position they were attached to the anterior pectoralis fascia using 2 sutures of 2-0 silk around each lead collar. The bacitracin- soaked sponge was removed from the pocket, hemostasis was obtained, the pacemaker was attached to the leads and placed in the pocket with the leads coiled beneath it. The incision was closed with a running double subcutaneous closure of 3-0 V-Lock absorbable suture, followed by running subcuticular skin closure of 4-0 V-Lock absorbable suture. Bacitracin ointment was placed on the incision and a pressure dressing applied. I attest to the content of the Intraoperative Record and any orders documented therein. Any exceptions are noted below.
--- NOTE | 2017-12-24 14:44 | Post Sedation Assessment ---
Post Sedation Assessment General Date of Sedation Dec 24, 2017. Vital Signs: Vital Signs Past 12 Hours Date Time Temp Pulse Resp B/P (MAP) Pulse Ox O2 Delivery O2 Flow Rate FiO2 12/24/17 12:00 Room Air 12/24/17 11:00 37.0 60 18 101/66 (78) 99 12/24/17 08:00 Room Air 12/24/17 04:30 37.4 70 18 113/74 (87) 94 12/24/17 04:00 Room Air Post Procedure Recovery Score Activity: (2) Moves 4 extremities * Respiration: (2) Deep breath/cough Circulation: (2) +/-20% PreAnes Value Consciousness: (2) Fully Awake Oxygen Saturation: (2) > 92% On Room Air Post Anesthesia Score: 10 Discharge Sedation Level of Care: Fast Track Phase II Post Sedation Plan On clinical assessment, the patient appears to have tolerated the sedation without complications. Patient is recovering as anticipated. Patient will continue to be monitored by nursing and may be discharged when sedation discharge criteria are met per below protocol. Upon Completions of procedure and additional 15 minutes continue every 5 minute vital signs and the P.A.R. score; then discharge to a Phase I or Fast Track to Phase II per the following guidelines: * Discharge Patient to appropriate Phase II area if PAR is 8 or greater or return to pre- procedure baseline. The post - procedure orders will be as directed. * If PAR score is less than 8 or not return to pre-procedure baseline then patient will follow Phase I monitoring till PAR is reached for Phase II. The Phase I may be done in procedure room or may call to secure a Phase I area. * If naloxone or flumazenil are used for reversal, hold in Phase I for an additional 60 -120 minutes before discharge to Phase II. Please call the Sedation Physician to re-evaluate and complete post-note for discharge to Phase II area. Do NOT discharge from procedure sedation or Phase 1 until post- sedation evaluation note is complete by procedure /sedation MD Sedation Discharge Instructions to be given to the patient at discharge to home.
[2017-12-24] MEDS ORDERED: KETOROLAC TROMETHAMINE 10 MG TAB PO PRN (14:45)
[2017-12-24] MEDS ORDERED: ACETAMINOPHEN 325 MG TAB PO PRN (14:45)
[2017-12-24 15:52] VITALS: BP 136/84; PULSE 71; TEMP 36.5; O2SAT 93
[2017-12-24] MEDS: LEVOFLOXACIN / D5W 750 MG in PREMIXED IN D5W 150 ML IV SCH (17:58)
--- NOTE | 2017-12-24 19:05 | Progress Note ---
Internal Med Progress Note Date of Service: Dec 24, 2017. Provider Documentation: SUBJECTIVE: schedule to have pacemaker placement today pt is pleasant , no sign of discomfort no episode of syncope since admission met at bedside wondering after the pacemaker -if her blood pressure remains stable can she be off Florinef -as it causing significant water retention /edema on lower extremities OBJECTIVE: Vital Signs-as noted below Exam: General-no apparent distress Eyes-sclera nonicteric, pupils reactive to light ENT-moist oral mucosa Neck-no JVD Lungs-clear to auscultate, no rales or wheeze Heart-regular S1-S2 Abdomen-soft nontender Extremities-no lower extremity edema Neuro-baseline advanced dementia/, no focal neurological deficit Lab data as noted below. ASSESSMENT & PLAN: SYNCOPE recurrent episodes was started on Florinef for Orthostatic hypotension developed marked lower ext edema Florinef dose decreased to 0.1 mg ad admission Telemonitoring shows -episode of bradycardia with junctional rhythm appreciate input form Cardiology plan for dual chamber Pacemaker placement today COMMUNITY ACQUIRED PNEUMONIA Portable CXR: 1. Interval development of a small right pleural effusion. Right basilar densities are nonspecific and could represent atelectasis or pneumonia. 2. Low lung volumes. 3. Mild cardiomegaly. Cont empiric Abx no evidence of sepsis no fever or chills no cough or SOB noted DEMENTIA advanced dementia Alzheimer's type -Continue home meds HYPOTHYROIDISM TSH: 1.4 -Continue levothyroxine HLD -Continue statin CHRONIC ANEMIA Hgb: 10.9 (~baseline). DVT Prophylaxis -Lovenox SQ FULL CODE DISPOSITION : lives at home with being the primary healthcare analyst previously was able to walk with minimum assistance noted to have significant gait disturbance to weakness past few days prior to admission PT/OT eval requested is willing for rehab for the pt -preferably at [facility] Vital Signs: Date Time Temp Pulse Resp B/P (MAP) Pulse Ox O2 Delivery O2 Flow Rate FiO2 12/25/17 07:42 36.8 110 16 96/56 (69) 91 Room Air 12/25/17 04:00 Room Air 12/25/17 03:43 37.0 81 18 106/72 (83) 95 12/25/17 01:29 36.7 12/25/17 00:04 38.0 87 18 137/89 (105) 92 12/25/17 00:01 Room Air 12/24/17 20:40 36.8 84 16 125/61 (82) 95 Room Air 12/24/17 20:00 Room Air 12/24/17 16:00 Room Air 12/24/17 15:52 36.5 71 16 136/84 (101) 93 Room Air 12/24/17 14:46 96 Room Air 12/24/17 14:41 96 Room Air 12/24/17 14:36 68 16 93/80 (84) 96 Room Air 12/24/17 12:00 Room Air 12/24/17 11:00 37.0 60 18 101/66 (78) 99 Lab Results: Results Past 24 Hours Test 12/24/17 21:05 12/25/17 05:57 Range/Units Bedside Glucose 100 70-90 mg/dl White Blood Count 8.91 4.8-10.8 K/uL Red Blood Count 5.29 4.2-5.4 M/uL Hemoglobin 9.6 12.0-16.0 g/dL Hematocrit 30.1 37-47 % Mean Corpuscular Volume 56.9 80-100 fL Mean Corpuscular Hemoglobin 18.1 25-34 pg Mean Corpuscular Hemoglobin Concent 31.9 32-36 g/dl RDW Standard Deviation 31.3 36.4-46.3 fL RDW Coefficient of Variation 15.1 11.5-14.5 % Platelet Count 266 130-400 K/uL Creatinine 0.88 0.60-1.20 mg/dl Est Creatinine Clear Calc Drug Dose 69.3 ml/min Estimated GFR () 81.6 Estimated GFR (Non- 70.4
[2017-12-24] MEDS: SIMVASTATIN 20 MG TAB PO SCH (19:22)
[2017-12-24] MEDS: ENOXAPARIN 40 MG/0.4 ML SYR SC SCH (19:22)
[2017-12-24] MEDS: DOXEPIN HCL 75 MG CAP PO SCH (19:23)
[2017-12-24] MEDS: DONEPEZIL HCL 23 MG TAB PO SCH (19:23)
[2017-12-24 20:40] VITALS: BP 125/61; PULSE 84; TEMP 36.8; O2SAT 95
[2017-12-25] VITALS (12 sets, daily range): BP systolic 96–137; BP diastolic 46–89; PULSE 71–110; TEMP 36.3–38; O2SAT 91–100
[2017-12-25] MEDS: LEVOTHYROXINE 50 MCG TAB PO SCH (05:31)
[2017-12-25 06:19] LABS: HEMATOCRIT 30.1 % (37-47); HEMOGLOBIN 9.6 g/dL (12.0-16.0); MEAN CELL VOLUME 56.9 fL (80-100); MEAN CORPUSCULAR HEMOGLOBIN 18.1 pg (25-34); MEAN CORPUSCULAR HGB CONC 31.9 g/dl (32-36); PLATELET COUNT 266 K/uL (130-400); RED CELL DISTRIBUTION WIDTH CV 15.1 % (11.5-14.5); RED CELL DISTRIBUTION WIDTH SD 31.3 fL (36.4-46.3); WHITE BLOOD COUNT 8.91 K/uL (4.8-10.8)
[2017-12-25 06:54] LABS: CREATININE 0.88 mg/dl (0.60-1.20)
--- NOTE | 2017-12-25 07:46 | DIAGNOSTIC IMAGING REPORT ---
CHEST 2 VIEWS ROUTINE HISTORY: EXACT TIME ORDERED Evaluate for pneumothorax and lead placement COMPARISON: Chest 12/22/2017. FINDINGS: Interval placement left-sided dual-chamber pacemaker. The leads appear intact. No pneumothorax. The heart remains mildly enlarged. Mild progressive interstitial and vascular thickening consistent with pulmonary edema. Small right pleural effusion and right basilar densities persist. IMPRESSION: 1. Interval placement left-sided dual-chamber pacemaker. No pneumothorax. 2. Mild pulmonary edema has progressed. 2. Small right pleural effusion and right basilar density persists. Electronically signed by: Caden Garrett M.D. 12/25/2017 7:44 AM Dictated Date/Time: 12/25/2017 7:43 AM
[2017-12-25] MEDS: ASPIRIN 81 MG ECTAB PO SCH (08:46)
[2017-12-25] MEDS: DOCUSATE SODIUM 100 MG CAP PO SCH (08:46)
[2017-12-25] MEDS: CEROVITE ADV FORMULA TAB PO SCH (08:46)
[2017-12-25] MEDS: MEMANTINE 10 MG TAB PO SCH ×2 (08:46→20:25)
[2017-12-25] MEDS: SERTRALINE HCL 100 MG TAB PO SCH (08:47)
--- NOTE | 2017-12-25 09:47 | Cardiology Follow-Up ---
Subjective Date of Service: Dec 25, 2017. Pt evaluation today including: conversation w/ patient, physical exam, lab review, review of studies, review of inpatient medication list History of Present Illness This is a very pleasant 62-year-old woman who I believe has Alzheimer's and significant dementia and therefore her is the primary historian, he is a nurse. He reports that she was diagnosed as having a stroke a number of years ago, including visual field defects, however based on her neurologic evaluation her main problem is Alzheimer's type dementia. She has been having difficulty with loss of consciousness for several years, the episodes however have been becoming more frequent. She did have a tilt test performed 09/04/2016, this documented a significant drop in blood pressure and an increase in heart rate consistent with orthostasis although loss of consciousness was not observed. This was however felt to be a likely cause of her loss of consciousness. She also has history of frequent premature ventricular beats and was on amiodarone, but no longer is. She has had several episodes of syncope for which she was hospitalized this year , as well as others which did not require hospitalization. She is on Florinef ( which was recently reduced) and that may have helped somewhat. She presented now with a somewhat different episode that occurred while she was sitting, but that still could have the same mechanism. Her feels it was quite different than what she has experienced before, it was more prolonged, it was while she was sitting and she was very diaphoretic with it. He did not check her pulse. She cannot provide a history. On telemetry monitoring she was observed to have brief periods of junctional bradycardia in the 40s, one episode yesterday morning and one episode during the night. These were evidently asymptomatic however she has been in bed. Since bradycardia may play a role in her presentation a dual-chamber pacemaker was implanted yesterday without apparent difficulty. Today she has no complaints. Social History Smoking Status: Never Smoker History of Alcohol Use: No Review of Systems Respiratory: No shortness of breath Cardiac: No chest pain Review of systems would be unreliable given her mental status Objective Vital Signs Past 12 Hours Date Time Temp Pulse Resp B/P (MAP) Pulse Ox O2 Delivery O2 Flow Rate FiO2 12/25/17 07:42 36.8 110 16 96/56 (69) 91 Room Air 12/25/17 04:00 Room Air 12/25/17 03:43 37.0 81 18 106/72 (83) 95 12/25/17 01:29 36.7 12/25/17 00:04 38.0 87 18 137/89 (105) 92 12/25/17 00:01 Room Air Last Recorded Weight-Kilograms: 80.100 Physical Exam Constitutional: Level of Distress: NAD Lungs: Auscultation: breath sounds normal Cardiovascular: Heart Auscultation: RRR, no rubs Extremities: no edema Incision is clean and dry, no erythema or hematoma. Dressing changed. Data Laboratory Results: Last 24 Hours Test 12/24/17 21:05 12/25/17 05:57 Bedside Glucose 100 mg/dl White Blood Count 8.91 K/uL Red Blood Count 5.29 M/uL Hemoglobin 9.6 g/dL Hematocrit 30.1 % Mean Corpuscular Volume 56.9 fL Mean Corpuscular Hemoglobin 18.1 pg Mean Corpuscular Hemoglobin Concent 31.9 g/dl RDW Standard Deviation 31.3 fL RDW Coefficient of Variation 15.1 % Platelet Count 266 K/uL Creatinine 0.88 mg/dl Est Creatinine Clear Calc Drug Dose 69.3 ml/min Estimated GFR () 81.6 Estimated GFR (Non- 70.4 Imaging: Chest x-ray shows good lead position, no pneumothorax EKG: Atrial pacing, normal pacer function Telemetry reviewed: Predominantly atrial pacing, some sinus rhythm. Pacer evaluation: Excellent pacing and sensing characteristics. Assessment and Plan 1. Syncope: Although we do not know the specific cause of her syncope it may be due to orthostasis, transient bradycardia or combination. I would treat her for both, she has a pacemaker in now and I would continue the Florinef for now. Over time we may be a little decrease that dose. 2. Post pacemaker implantation: She is doing well postop day #1. The site looks good, the x-ray looks good and she feels good. The pacemaker is working well. From the surgical standpoint she can go home today, if she goes home today or over the weekend I will make arrangements for her to be seen in the office on Thursday for a wound check. Thank you for allowing me to participate in her care.
[2017-12-25] MEDS: LEVOFLOXACIN 500 MG TAB PO SCH (13:06)
--- NOTE | 2017-12-25 17:33 | Progress Note ---
Internal Med Progress Note Date of Service: Dec 25, 2017. Provider Documentation: SUBJECTIVE: S/p Pacemaker placement yesterday pt is pleasant , no sign of discomfort no episode of syncope since admission met at bedside wondering after the pacemaker -if her blood pressure remains stable can she be off Florinef -as it causing significant water retention /edema on lower extremities OBJECTIVE: Vital Signs-as noted below Exam: General-no apparent distress Eyes-sclera nonicteric, pupils reactive to light ENT-moist oral mucosa Neck-no JVD Lungs-clear to auscultate, no rales or wheeze Heart-regular S1-S2 Abdomen-soft nontender Extremities-no lower extremity edema/left upper chest wall pacemaker site healing well, no tenderness, no erythema or swelling Neuro-baseline advanced dementia/, no focal neurological deficit Lab data as noted below. ASSESSMENT & PLAN: SYNCOPE Possible due to bradycardic episode recurrent episodes was started on Florinef for Orthostatic hypotension developed marked lower ext edema Florinef dose decreased to 0.1 mg on admission Discontinued after pacemaker placement Telemonitoring shows -episode of bradycardia with junctional rhythm appreciate input form Cardiology Status post dual chamber Pacemaker placement PT OT eval appreciated Recommend rehab Waiting for rehab placement COMMUNITY ACQUIRED PNEUMONIA Portable CXR: 1. Interval development of a small right pleural effusion. Right basilar densities are nonspecific and could represent atelectasis or pneumonia. 2. Low lung volumes. 3. Mild cardiomegaly. Cont empiric Abx transitioned to oral Levaquin complete 5 days course no evidence of sepsis no fever or chills no cough or SOB noted DEMENTIA advanced dementia Alzheimer's type -Continue home meds HYPOTHYROIDISM TSH: 1.4 -Continue levothyroxine HLD -Continue statin CHRONIC ANEMIA Hgb: 10.9 (~baseline). DVT Prophylaxis -Lovenox SQ FULL CODE DISPOSITION : Patient will need rehab as per PT OT Social service following for discharge planning Has been wants referral to be made at [facility] Vital Signs: Date Time Temp Pulse Resp B/P (MAP) Pulse Ox O2 Delivery O2 Flow Rate FiO2 12/26/17 16:00 Room Air 12/26/17 15:25 36.6 69 19 114/77 (89) 95 Room Air 12/26/17 12:00 Room Air 12/26/17 11:47 36.5 71 18 115/67 (83) 97 Room Air 12/26/17 08:00 Room Air 12/26/17 07:28 36.8 70 18 135/86 (102) 97 Room Air 12/26/17 06:32 36.6 73 18 121/70 (87) 96 Room Air 12/26/17 04:00 Room Air 12/26/17 00:01 95 Room Air 12/25/17 23:54 36.4 75 19 112/77 (89) 95 Room Air Lab Results: Results Past 24 Hours Test 12/26/17 06:11 Range/Units White Blood Count 7.51 4.8-10.8 K/uL Red Blood Count 5.50 4.2-5.4 M/uL Hemoglobin 10.0 12.0-16.0 g/dL Hematocrit 31.2 37-47 % Mean Corpuscular Volume 56.7 80-100 fL Mean Corpuscular Hemoglobin 18.2 25-34 pg Mean Corpuscular Hemoglobin Concent 32.1 32-36 g/dl Platelet Count 270 130-400 K/uL Neutrophils (%) (Auto) 63.7 % Lymphocytes (%) (Auto) 25.4 % Monocytes (%) (Auto) 7.7 % Eosinophils (%) (Auto) 2.8 % Basophils (%) (Auto) 0.3 % Neutrophils # (Auto) 4.78 1.4-6.5 K/uL Lymphocytes # (Auto) 1.91 1.2-3.4 K/uL Monocytes # (Auto) 0.58 0.11-0.59 K/uL Eosinophils # (Auto) 0.21 0-0.5 K/uL Basophils # (Auto) 0.02 0-0.2 K/uL RDW Standard Deviation 31.1 36.4-46.3 fL RDW Coefficient of Variation 15.0 11.5-14.5 % Immature Granulocyte % (Auto) 0.1 % Immature Granulocyte # (Auto) 0.01 0.00-0.02 K/uL Poikilocytosis PRESENT Microcytosis PRESENT Target Cells 1+ Ovalocytes 1+ Sodium Level 141 136-145 mmol/L Potassium Level 4.1 3.5-5.1 mmol/L Chloride Level 106 98-107 mmol/L Carbon Dioxide Level 29 21-32 mmol/L Anion Gap 5.0 3-11 mmol/L Blood Urea Nitrogen 14 7-18 mg/dl Creatinine 1.00 0.60-1.20 mg/dl Est Creatinine Clear Calc Drug Dose 60.3 ml/min Estimated GFR () 69.9 Estimated GFR (Non- 60.3 BUN/Creatinine Ratio 14.4 10-20 Random Glucose 106 70-99 mg/dl Calcium Level 9.0 8.5-10.1 mg/dl Magnesium Level 2.3 1.8-2.4 mg/dl
[2017-12-25] MEDS: ENOXAPARIN 40 MG/0.4 ML SYR SC SCH (20:23)
[2017-12-25] MEDS: DONEPEZIL HCL 23 MG TAB PO SCH (20:24)
[2017-12-25] MEDS: SIMVASTATIN 20 MG TAB PO SCH (20:25)
[2017-12-25] MEDS: DOXEPIN HCL 75 MG CAP PO SCH (20:25)
[2017-12-25] MEDS ORDERED: POTASSIUM CHLORIDE 10 MEQ TABCR PO STA (21:13)
[2017-12-26] VITALS (9 sets, daily range): BP systolic 105–135; BP diastolic 62–86; PULSE 69–73; TEMP 36.5–36.8; O2SAT 95–98
[2017-12-26] MEDS: LEVOTHYROXINE 50 MCG TAB PO SCH (05:41)
[2017-12-26 06:36] LABS: BASO % 0.3 %; BASO ABS # 0.02 K/uL (0-0.2); EOS % 2.8 %; EOS ABS # 0.21 K/uL (0-0.5); HEMATOCRIT 31.2 % (37-47); IG# 0.01 K/uL (0.00-0.02); LYMPH % 25.4 %; LYMPH ABS # 1.91 K/uL (1.2-3.4); MEAN CELL VOLUME 56.7 fL (80-100); MEAN CORPUSCULAR HEMOGLOBIN 18.2 pg (25-34); MEAN CORPUSCULAR HGB CONC 32.1 g/dl (32-36); MONO % 7.7 %; MONO ABS # 0.58 K/uL (0.11-0.59); NEUT % 63.7 %; NEUT ABS # 4.78 K/uL (1.4-6.5); PLATELET COUNT 270 K/uL (130-400); RED CELL DISTRIBUTION WIDTH SD 31.1 fL (36.4-46.3); WHITE BLOOD COUNT 7.51 K/uL (4.8-10.8)
[2017-12-26 07:12] LABS: POTASSIUM 4.1 mmol/L (3.5-5.1)
[2017-12-26] MEDS ORDERED: MRLP17X PO (07:56)
[2017-12-26] MEDS ORDERED: LVQ500 PO (07:56)
[2017-12-26] MEDS: ASPIRIN 81 MG ECTAB PO SCH (08:19)
[2017-12-26] MEDS: MEMANTINE 10 MG TAB PO SCH ×2 (08:19→20:32)
[2017-12-26] MEDS: SERTRALINE HCL 100 MG TAB PO SCH (08:20)
[2017-12-26] MEDS: CEROVITE ADV FORMULA TAB PO SCH (08:20)
[2017-12-26] MEDS: DOCUSATE SODIUM 100 MG CAP PO SCH (08:20)
[2017-12-26] MEDS: LEVOFLOXACIN 500 MG TAB PO SCH (14:43)
--- NOTE | 2017-12-26 20:07 | Progress Note ---
Internal Med Progress Note Date of Service: Dec 26, 2017. Provider Documentation: SUBJECTIVE: Baseline dementia Pleasant offers no complaint OBJECTIVE: Vital Signs-as noted below Exam: General-no apparent distress Eyes-sclera nonicteric, pupils reactive to light ENT-moist oral mucosa Neck-no JVD Lungs-clear to auscultate, no rales or wheeze Heart-regular S1-S2 Abdomen-soft nontender Extremities-no lower extremity edema/left upper chest wall pacemaker site healing well, no tenderness, no erythema or swelling Neuro-baseline advanced dementia/, no focal neurological deficit Lab data as noted below. ASSESSMENT & PLAN: SYNCOPE due to arrhythmia/bradycardic episode recurrent episodes Telemonitoring shows -episode of bradycardia with junctional rhythm appreciate input form Cardiology Status post dual chamber Pacemaker placement was started on Florinef for Orthostatic hypotension developed marked lower ext edema Florinef dose decreased to 0.1 mg on admission Discontinued after pacemaker placement PT OT eval appreciated Recommend rehab Waiting for rehab placement COMMUNITY ACQUIRED PNEUMONIA Portable CXR: 1. Interval development of a small right pleural effusion. Right basilar densities are nonspecific and could represent atelectasis or pneumonia. 2. Low lung volumes. 3. Mild cardiomegaly. Cont empiric Abx transitioned to oral Levaquin complete 5 days course no evidence of sepsis no fever or chills no cough or SOB noted DEMENTIA advanced dementia Alzheimer's type -Continue home meds HYPOTHYROIDISM TSH: 1.4 -Continue levothyroxine HLD -Continue statin CHRONIC ANEMIA Hgb: 10.9 (~baseline). DVT Prophylaxis -Lovenox SQ FULL CODE DISPOSITION : Patient will need rehab as per PT OT Social service following for discharge planning Has been wants referral to be made at [facility] Vital Signs: Date Time Temp Pulse Resp B/P (MAP) Pulse Ox O2 Delivery O2 Flow Rate FiO2 12/26/17 20:15 36.5 70 18 125/77 (93) 98 Room Air 12/26/17 16:00 Room Air 12/26/17 15:25 36.6 69 19 114/77 (89) 95 Room Air 12/26/17 12:00 Room Air 12/26/17 11:47 36.5 71 18 115/67 (83) 97 Room Air 12/26/17 08:00 Room Air 12/26/17 07:28 36.8 70 18 135/86 (102) 97 Room Air 12/26/17 06:32 36.6 73 18 121/70 (87) 96 Room Air 12/26/17 04:00 Room Air 12/26/17 00:01 95 Room Air 12/25/17 23:54 36.4 75 19 112/77 (89) 95 Room Air Lab Results: Results Past 24 Hours Test 12/26/17 06:11 Range/Units White Blood Count 7.51 4.8-10.8 K/uL Red Blood Count 5.50 4.2-5.4 M/uL Hemoglobin 10.0 12.0-16.0 g/dL Hematocrit 31.2 37-47 % Mean Corpuscular Volume 56.7 80-100 fL Mean Corpuscular Hemoglobin 18.2 25-34 pg Mean Corpuscular Hemoglobin Concent 32.1 32-36 g/dl Platelet Count 270 130-400 K/uL Neutrophils (%) (Auto) 63.7 % Lymphocytes (%) (Auto) 25.4 % Monocytes (%) (Auto) 7.7 % Eosinophils (%) (Auto) 2.8 % Basophils (%) (Auto) 0.3 % Neutrophils # (Auto) 4.78 1.4-6.5 K/uL Lymphocytes # (Auto) 1.91 1.2-3.4 K/uL Monocytes # (Auto) 0.58 0.11-0.59 K/uL Eosinophils # (Auto) 0.21 0-0.5 K/uL Basophils # (Auto) 0.02 0-0.2 K/uL RDW Standard Deviation 31.1 36.4-46.3 fL RDW Coefficient of Variation 15.0 11.5-14.5 % Immature Granulocyte % (Auto) 0.1 % Immature Granulocyte # (Auto) 0.01 0.00-0.02 K/uL Poikilocytosis PRESENT Microcytosis PRESENT Target Cells 1+ Ovalocytes 1+ Sodium Level 141 136-145 mmol/L Potassium Level 4.1 3.5-5.1 mmol/L Chloride Level 106 98-107 mmol/L Carbon Dioxide Level 29 21-32 mmol/L Anion Gap 5.0 3-11 mmol/L Blood Urea Nitrogen 14 7-18 mg/dl Creatinine 1.00 0.60-1.20 mg/dl Est Creatinine Clear Calc Drug Dose 60.3 ml/min Estimated GFR () 69.9 Estimated GFR (Non- 60.3 BUN/Creatinine Ratio 14.4 10-20 Random Glucose 106 70-99 mg/dl Calcium Level 9.0 8.5-10.1 mg/dl Magnesium Level 2.3 1.8-2.4 mg/dl
[2017-12-26] MEDS: DONEPEZIL HCL 23 MG TAB PO SCH (20:29)
[2017-12-26] MEDS: ENOXAPARIN 40 MG/0.4 ML SYR SC SCH (20:29)
[2017-12-26] MEDS: DOXEPIN HCL 75 MG CAP PO SCH (20:31)
[2017-12-26] MEDS: SIMVASTATIN 20 MG TAB PO SCH (20:31)
[2017-12-27] MEDS: LEVOTHYROXINE 50 MCG TAB PO SCH (05:32)
[2017-12-27 07:13] VITALS: BP 124/82; PULSE 85; TEMP 36.6; O2SAT 98
[2017-12-27] MEDS: DOCUSATE SODIUM 100 MG CAP PO SCH (09:11)
[2017-12-27] MEDS: ASPIRIN 81 MG ECTAB PO SCH (09:12)
[2017-12-27] MEDS: CEROVITE ADV FORMULA TAB PO SCH (09:12)
[2017-12-27] MEDS: MEMANTINE 10 MG TAB PO SCH ×2 (09:12→21:25)
[2017-12-27] MEDS: SERTRALINE HCL 100 MG TAB PO SCH (09:12)
--- NOTE | 2017-12-27 11:31 | Discharge Instructions ---
Discharge Instructions Date of Service Dec 27, 2017. Admission Reason for Admission: Syncope Discharge Discharge Diagnosis / Problem: JUNCTIONAL BRADYACERIDA /PACEMAKER PLACEMENT / DEMENTIA Discharge Goals Goal(s): Decrease discomfort, Improve disease control Activity Recommendations Activity Level: Assistance Required Therapies: Physical Therapy, Occupational Therapy ACTIVITY RECOMMENDATIONS: * Do not raise affected arm over head for 2 weeks. SPECIAL CARE INSTRUCTIONS: * If bleeding occurs, apply direct pressure to area for 5 minutes. * Call your doctor if you have severe pain, fever, drainage or bleeding at site. * Keep dressing on and dry for 48 hours then remove. * Keep any scheduled doctor's appointment. * Implant Card - hand held device with website information given. SKIN IRRITATION: * You may experience some redness and/or swelling in the area where radiation was administered. If any skin irritation occurs, please contact your family physician. FOLLOW UP VISIT: Keep any scheduled doctor appointments. . Additional Information Patient informed of condition: Yes Advance Directives: No DNR: No Level of Care: Acute Rehab Communicable Disease: No Prognosis: Stable Bonds Catheter: No Instructions / Follow-Up Instructions / Follow-Up FOLLOW UP WITH CARDIOLOGY DR STILES OFFICE IN 1 MONTH FOR PACEMAKER CHECK Current Hospital Diet Patient's current hospital diet: Regular Diet Discharge Diet Recommended Diet: Regular Diet Pending Studies Studies pending at discharge: no Medical Emergencies . Who to Call and When: Medical Emergencies: If at any time you feel your situation is an emergency, please call 911 immediately. . Non-Emergent Contact Non-Emergency issues call your: Primary Care Provider . . "Provider Documentation" section prepared by Huma Hirsch. . Core Measure Problem Core Measures: None
--- NOTE | 2017-12-27 11:34 | Progress Note ---
Internal Med Progress Note Date of Service: Dec 27, 2017. Provider Documentation: SUBJECTIVE: Baseline dementia Pleasant offers no complaint OBJECTIVE: Vital Signs-as noted below Exam: General-no apparent distress Eyes-sclera nonicteric, pupils reactive to light ENT-moist oral mucosa Neck-no JVD Lungs-clear to auscultate, no rales or wheeze Heart-regular S1-S2 Abdomen-soft nontender Extremities-no lower extremity edema/left upper chest wall pacemaker site healing well, no tenderness, no erythema or swelling Neuro-baseline advanced dementia/, no focal neurological deficit Lab data as noted below. ASSESSMENT & PLAN: SYNCOPE due to arrhythmia/bradycardic episode recurrent episodes Telemonitoring shows -episode of bradycardia with junctional rhythm appreciate input form Cardiology Status post dual chamber Pacemaker placement was started on Florinef for Orthostatic hypotension developed marked lower ext edema Florinef dose decreased to 0.1 mg on admission Discontinued after pacemaker placement PT OT eval appreciated Recommend rehab Waiting for rehab placement COMMUNITY ACQUIRED PNEUMONIA Portable CXR: 1. Interval development of a small right pleural effusion. Right basilar densities are nonspecific and could represent atelectasis or pneumonia. 2. Low lung volumes. 3. Mild cardiomegaly. Cont empiric Abx transitioned to oral Levaquin complete 5 days course no evidence of sepsis no fever or chills no cough or SOB noted DEMENTIA advanced dementia Alzheimer's type -Continue home meds HYPOTHYROIDISM TSH: 1.4 -Continue levothyroxine HLD -Continue statin CHRONIC ANEMIA Hgb: 10.9 (~baseline). DVT Prophylaxis -Lovenox SQ FULL CODE DISPOSITION : Patient will need rehab as per PT OT eval on 12/25/17 will need updated PT/OT eval tomorrow 12/28/17 Social service following for discharge planning Has been wants referral to be made at [facility] Vital Signs: Date Time Temp Pulse Resp B/P (MAP) Pulse Ox O2 Delivery O2 Flow Rate FiO2 12/27/17 09:26 Room Air 12/27/17 07:13 36.6 85 18 124/82 (96) 98 Room Air 12/26/17 23:25 Room Air 12/26/17 23:01 36.8 70 16 105/62 (76) 96 Room Air 12/26/17 22:23 36.5 73 16 113/74 (87) 98 Room Air 12/26/17 22:15 Room Air 4/21/18 22:08 36.5 70 18 98 12/26/17 20:15 36.5 70 18 125/77 (93) 98 Room Air 12/26/17 20:00 Room Air 12/26/17 16:00 Room Air 12/26/17 15:25 36.6 69 19 114/77 (89) 95 Room Air
[2017-12-27 15:48] VITALS: BP 140/79; PULSE 100; TEMP 36.8; O2SAT 95
[2017-12-27] MEDS: ENOXAPARIN 40 MG/0.4 ML SYR SC SCH (19:50)
[2017-12-27] MEDS: DOXEPIN HCL 75 MG CAP PO SCH (21:25)
[2017-12-27] MEDS: SIMVASTATIN 20 MG TAB PO SCH (21:25)
[2017-12-27] MEDS: DONEPEZIL HCL 23 MG TAB PO SCH (21:25)
[2017-12-27 22:43] VITALS: BP 132/79; PULSE 92; TEMP 36.4; O2SAT 98
[2017-12-28] MEDS: LEVOTHYROXINE 50 MCG TAB PO SCH (05:20)
[2017-12-28 07:05] VITALS: BP 137/85; PULSE 75; TEMP 36.4; O2SAT 96
[2017-12-28] MEDS: DOCUSATE SODIUM 100 MG CAP PO SCH (08:32)
[2017-12-28] MEDS: ASPIRIN 81 MG ECTAB PO SCH (08:32)
[2017-12-28] MEDS: CEROVITE ADV FORMULA TAB PO SCH (08:32)
[2017-12-28] MEDS: MEMANTINE 10 MG TAB PO SCH (08:32)
[2017-12-28] MEDS: SERTRALINE HCL 100 MG TAB PO SCH (08:32)
[2017-12-28 09:40] VITALS: BP 137/85; PULSE 75; TEMP 36.4; O2SAT 96
--- NOTE | 2017-12-28 13:14 | Discharge Summary ---
Discharge Summary Date of Service Dec 28, 2017. Discharge Summary Admission Date: Dec 23, 2017 at 16:55 Discharge Date: Dec 28, 2017 Admission Information HPI (per Admitting provider): Pt is 62 y/o F with PMH dementia, CVA, HLD, hypothyroidism, chronic anemia presented to ER with c/o syncope. History obtained pain has been secondary to patient's dementia. Reports history of recurrent syncope for last couple of years. Usually accompanied with a prodrome of patient reporting "do not feel good" and patient will have syncopal episode. This typically occurs when patient is sitting upright or standing. Diagnosed with orthostatic hypotension in past. Patient has had positive tilt table in past. Has seen cardiology in past for syncope. reports that pt's PCP is worried about sick sinus syndrome. Reports pt had [address] monitor and 7 day cardiac monitors in past showing some PVCs. Reported pt on amiodarone in past, however that was discontinued 2/2 hypotension. History hospital admission 09/22/17-10/02/17 for syncopal event and was d/c on florinef 0.2mg daily. reports pt was doing well on that, however still with intermittent syncope. Noticed some LE edema couple of weeks ago and PCP decreased florinef to 0.1mg daily with resolution of LE edema. Today reports was getting pt dressed when she reported "didn't feel good" and he sat her on toilet and pt sat there for approx 5 minutes and seemed fine (was not having BM or urinating). States then pt had syncope and fell on floor and thinks had LOC for approx 1 minute patient was diaphoretic. Reports this was different than her normal syncope as she was sitting for approximately 5 minutes and seemed to be doing okay and then had syncope. Reports usually is diaphoretic after syncopal episodes and sometimes has vomiting after. No vomiting after today's episode. feels patient back in her baseline however is a little more confused since arrival to ER which she reports is not uncommon when patient in different situations. does all of patient's care at home. Patient will typically feed herself. reports patient drinks approximately 30-40 ounces water daily and usually needs prompting to drink fluids other than chocolate milk. Has been denies any known choking or dysphagia problems. Home health nurse coming every other week. Was having in-house PT and OT couple of times a week for ambulatory dysfunction however that was stopped, but patient was to restart physical therapy this week as has been having ataxia to the right. Has been reports history of right-sided hemianopsia sometimes does walk to the right and bumped into the britton but he has has been increased the last couple weeks. denies any noted fever/chills, V/D/C, noted SOB, cough, rhinorrhea or noted changes in weight. Reports patient has not been complaining of any abdominal pain. History EEG on 09/24/17: No seizure activity. History echo 09/2017: EF 60-65%. Physical Exam (per Admitting): General Appearance: WD/WN, no apparent distress Head: normocephalic, + pertinent finding (no lacerations or hematomas noted) Eyes: normal inspection, PERRL, sclerae normal, + pertinent finding (Unable to test EOMs patient cannot follow finger) ENT: pharynx normal, + pertinent finding (Mucous membranes mildly dry, gross hearing appears intact) Neck: supple, no JVD, trachea midline Respiratory/Chest: chest non-tender, lungs clear, normal breath sounds, no respiratory distress, no accessory muscle use Cardiovascular: regular rate, rhythm, no murmur, normal peripheral pulses Abdomen/GI: normal bowel sounds, non tender, soft Genitourinary - Female: external genitalia normal Back: no CVA tenderness Extremities/Musculoskelatal: no calf tenderness, normal capillary refill, normal range of motion Neurologic/Psych: alert (Patient pleasantly confused), + pertinent finding ( Oriented to person. Difficult to get patient to follow commands, repeated encouraging and prompting. 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 No noted discomfort with range of motion bilateral hips and knees, ankles and bilateral shoulder, elbow, wrist) Skin: warm/dry, + pertinent finding (Right upper inner thigh with approximately 0.5 cm abrasion without surrounding erythema, no discharge) Hospital Course SYNCOPE due to arrhythmia/bradycardic episode recurrent episodes Telemonitoring shows -episode of bradycardia with junctional rhythm appreciate input form Cardiology Status post dual chamber Pacemaker placement was started on Florinef for Orthostatic hypotension developed marked lower ext edema Florinef dose decreased to 0.1 mg on admission Discontinued after pacemaker placement PT OT eval appreciated Recommend rehab Waiting for rehab placement COMMUNITY ACQUIRED PNEUMONIA Portable CXR: 1. Interval development of a small right pleural effusion. Right basilar densities are nonspecific and could represent atelectasis or pneumonia. 2. Low lung volumes. 3. Mild cardiomegaly. Cont empiric Abx transitioned to oral Levaquin complete 5 days course no evidence of sepsis no fever or chills no cough or SOB noted DEMENTIA advanced dementia Alzheimer's type -Continue home meds HYPOTHYROIDISM TSH: 1.4 -Continue levothyroxine HLD -Continue statin CHRONIC ANEMIA Hgb: 10.9 (~baseline). DVT Prophylaxis -Lovenox SQ FULL CODE DISPOSITION : Patient will need rehab as per PT OT eval on 12/25/17 will need updated PT/OT eval tomorrow 12/28/17 Social service following for discharge planning Has been wants referral to be made at [facility] Total time spent on discharge = 35 mins This includes examination of the patient, discharge planning, medication reconciliation, and communication with other providers.
[2017-12-28 15:22] VITALS: BP 135/82; PULSE 85; TEMP 36.8; O2SAT 93
== END 2017-12-28 16:52 | DRG 242 ==
LOC: EDBD 09:45 → C.EDB 09:46 → C.2T 12:56 → ENRESERV 13:06 → OBSVTOIN 12-23 16:55 → C.3E 12-26 20:07 → ENRESERV 12-26 21:06
PROVIDERS: ADMIT Hospitalist; ATTEND Hospitalist
PROC: 0JH606Z Insertion of Pacemaker, Dual Chamber into Chest Subcutaneous Tissue and Fascia, Open Approach (ICD-10-PCS; principal; 2017-12-24 13:14)
PROC: 02HK3JZ Insertion of Pacemaker Lead into Right Ventricle, Percutaneous Approach (ICD-10-PCS; principal; 2017-12-24 13:14)
PROC: 02H73JZ Insertion of Pacemaker Lead into Left Atrium, Percutaneous Approach (ICD-10-PCS; principal; 2017-12-24 13:14)
DX: I49.5 Sick sinus syndrome (principal); J18.9 Pneumonia, unspecified organism; G30.9 Alzheimer's disease, unspecified; F02.80 Dementia in other diseases classified elsewhere, unspecified severity, without behavioral disturbance, psychotic disturbance, mood disturbance, and anxiety; E78.5 Hyperlipidemia, unspecified; E03.9 Hypothyroidism, unspecified; D64.9 Anemia, unspecified; I95.1 Orthostatic hypotension; Z79.82 Long term (current) use of aspirin; Z79.899 Other long term (current) drug therapy; Z86.73 Personal history of transient ischemic attack (TIA), and cerebral infarction without residual deficits; Z88.0 Allergy status to penicillin

== ENCOUNTER 2018-01-14 21:01 | Inpatient (IN) | payer OTHER, MEDICARE ==
[~2018-01-14] VITALS: Ht 165.1 cm; Wt 76.0 kg
[~2018-01-14 21:01] MED LIST changes: -ASPI81TA28 PO; -Boost PO; -Enteral Nutrition Formula PO; -FLR/1 PO; +MRLP17X PO; -MULT-222 PO
[2018-01-14] MEDS ORDERED: LEVO50TA6 PO (21:50)
[2018-01-14] MEDS ORDERED: SIMV-151 PO (21:50)
[2018-01-14] MEDS ORDERED: ZLF/100 PO (21:50)
[2018-01-14] MEDS ORDERED: DONE-87 PO (21:50)
[2018-01-14] MEDS ORDERED: MEMA1TAB4 PO (21:50)
--- NOTE | 2018-01-14 21:51 | EMERGENCY ROOM VISIT NOTE ---
History Report prepared by Cora: Hannah Cuello Under the Supervision of: Dr. eMllissa Davalos M.D. First contact with patient: 21:37 Chief Complaint: SYNCOPE Stated Complaint: SYNCOPE Nursing Triage Summary: pt wasa walking with to get ready for bed stated she didnt feel good. pts states when pt states that she will have a syncopal episode. got pt to sit in chair. pt had +loc for 45seconds and then was sluggish to respond for the next 2-3 minutes. pt has hx of syncope, recent pacer x 3 weeks ago placed for syncope at [facility]. History of Present Illness The patient is a 62 year old female with severe dementia who presents to the Emergency Room with complaints of a sudden syncopal episode occurring around 1999 tonight. Per family, the patient has had about 4 episodes like this, the last of which was about 3 weeks ago. Per family, the patient had a pacemaker placed and reports that she has orthostatic hypotension. Per family, the patient started to have trouble walking right before the episode but that she was able to get in a chair before she completely passed out. Per family, the patient was out for about 45 seconds and states that she was very diaphoretic. Per family, the patient was still not quite herself by the time the EMS got there. Per family, the patient has dementia, anxiety, and hyperlipidemia. Her family reports that the patient was at [facility] and that she got home 4 days ago. Review of EMR: The patient had a pacemaker placed for junctional bradycardia and recurring syncope. Source of History: family Onset: 1999 tonight Position: other (generalized ) Quality: other (syncopal episode ) Timing: other (sudden ) Associated Symptoms: + diaphoresis Review of Systems See HPI for pertinent positives & negatives. A total of 10 systems reviewed and were otherwise negative. Past Medical & Surgical Medical Problems: (1) Advanced dementia (2) CVA (cerebral infarction) (3) HLD (hyperlipidemia) (4) Hypothyroidism (5) PVC (premature ventricular contraction) (6) Syncopal episodes Surgical Problems: (1) H/O tubal ligation (2) S/P placement of cardiac pacemaker Family History Alzheimer's disease Social History Smoking Status: Never Smoker Alcohol Use: occasionally Drug Use: none Marital Status: Housing Status: lives with significant other Occupation Status: retired Current/Historical Medications Scheduled Aspirin (Aspirin Ec), 81 MG PO DAILY Docusate Sodium (Stool Softener), 100 MG PO QAM Donepezil Hydrochloride (Donepezil Hcl), 23 MG PO HS Doxepin Hcl (Doxepin), 75 MG PO HS Levothyroxine Sodium (Levothyroxine Sodium), 50 MCG PO QAM Memantine HCl (Memantine HCl), 10 MG PO BID Multiple Vitamins W/ Minerals (Multi For Her), 1 TAB PO DAILY Sertraline HCl (Sertraline HCl), 100 MG PO QAM Simvastatin (Simvastatin), 20 MG PO HS Allergies Coded Allergies: Penicillins (Verified Allergy, Unknown, unknown, 09/23/17) Physical Exam Vital Signs Date Time Temp Pulse Resp B/P (MAP) Pulse Ox O2 Delivery O2 Flow Rate FiO2 01/15/18 01:39 83 14 144/79 01/15/18 01:18 77 01/14/18 23:30 94 128/90 91 119/75 103 105/66 01/14/18 22:30 72 18 132/70 97 Room Air 01/14/18 21:13 83 01/14/18 21:12 36.7 80 18 126/79 97 Room Air Physical Exam Vital signs reviewed. General: Chronically ill-appearing female, in no significant distress. HEENT: No scleral icterus, PERRLA, neck supple. Atraumatic. Cardiovascular: Regular rate and rhythm, no extra sounds. Pacemaker to left anterior chest. Pulmonary: Clear to auscultation bilaterally, normal work of breathing. Abdomen: Soft, nontender, nondistended, positive bowel sounds. Musculoskeletal: Atraumatic, no peripheral edema. Neurologic: Patient is awake, alert but unable to speak coherently. She does not answer questions appropriately. She is able to follow some commands, but not reliably. She is at her neurologic baseline according to her . Skin: Warm, dry, no rash Medical Decision & Procedures ER Provider Diagnostic Interpretation: Radiology results as stated below per my review and radiologist interpretation: CHEST ONE VIEW PORTABLE HISTORY: 62 years-old Female syncope acute syncope COMPARISON: Chest radiograph 12/25/2017 TECHNIQUE: Portable AP view of the chest FINDINGS: Cardiac silhouette is mildly enlarged. Left subclavian pacer appears unchanged. No pneumothorax. Mild pulmonary vascular congestion without overt pulmonary edema. Small right pleural effusion with unchanged right basilar opacities. Bones appear grossly intact. IMPRESSION: 1. Cardiomegaly with mild pulmonary vascular congestion. 2. Unchanged small right pleural effusion with right basilar opacities The above report was generated using voice recognition software. It may contain grammatical, syntax or spelling errors. Electronically signed by: Conrad Orozco M.D. 01/14/2018 10:33 PM Dictated Date/Time: 01/14/2018 10:31 PM Laboratory Results 01/14/18 22:46 Red Blood Count 5.71, Mean Corpuscular Volume 56.7, Mean Corpuscular Hemoglobin 18.6, Mean Corpuscular Hemoglobin Concent 32.7, Neutrophils (%) (Auto) 83.4, Lymphocytes (%) (Auto) 9.6, Monocytes (%) (Auto) 5.1, Eosinophils (%) (Auto) 1.6 , Basophils (%) (Auto) 0.1, Neutrophils # (Auto) 11.84, Lymphocytes # (Auto) 1.37, Monocytes # (Auto) 0.72, Eosinophils # (Auto) 0.23, Basophils # (Auto) 0.02 01/14/18 22:46 Test 01/14/18 22:46 White Blood Count 14.21 K/uL (4.8-10.8) Red Blood Count 5.71 M/uL (4.2-5.4) Hemoglobin 10.6 g/dL (12.0-16.0) Hematocrit 32.4 % (37-47) Mean Corpuscular Volume 56.7 fL (80-100) Mean Corpuscular Hemoglobin 18.6 pg (25-34) Mean Corpuscular Hemoglobin Concent 32.7 g/dl (32-36) Platelet Count 254 K/uL (130-400) Neutrophils (%) (Auto) 83.4 % Lymphocytes (%) (Auto) 9.6 % Monocytes (%) (Auto) 5.1 % Eosinophils (%) (Auto) 1.6 % Basophils (%) (Auto) 0.1 % Neutrophils # (Auto) 11.84 K/uL (1.4-6.5) Lymphocytes # (Auto) 1.37 K/uL (1.2-3.4) Monocytes # (Auto) 0.72 K/uL (0.11-0.59) Eosinophils # (Auto) 0.23 K/uL (0-0.5) Basophils # (Auto) 0.02 K/uL (0-0.2) RDW Standard Deviation 33.4 fL (36.4-46.3) RDW Coefficient of Variation 16.7 % (11.5-14.5) Immature Granulocyte % (Auto) 0.2 % Immature Granulocyte # (Auto) 0.03 K/uL (0.00-0.02) Microcytosis PRESENT Ovalocytes 1+ Anion Gap 4.0 mmol/L (3-11) Est Creatinine Clear Calc Drug Dose 61.5 ml/min Estimated GFR () 71.7 Estimated GFR (Non- 61.8 BUN/Creatinine Ratio 28.3 (10-20) Calcium Level 8.1 mg/dl (8.5-10.1) Magnesium Level 2.1 mg/dl (1.8-2.4) Total Bilirubin 0.3 mg/dl (0.2-1) Direct Bilirubin < 0.1 mg/dl (0-0.2) Aspartate Amino Transf (AST/SGOT) 29 U/L (15-37) Alanine Aminotransferase (ALT/SGPT) 44 U/L (12-78) Alkaline Phosphatase 158 U/L (45-117) Troponin I < 0.015 ng/ml (0-0.045) Total Protein 6.8 gm/dl (6.4-8.2) Albumin 3.2 gm/dl (3.4-5.0) Thyroid Stimulating Hormone (TSH) 1.040 uIu/ml (0.300-4.500) Laboratory results per my review. Medications Administered Medications (Trade) Dose Ordered Sig/Jevon Route Start Time Stop Time Status Last Admin Dose Admin Sodium Chloride 500 ml @ 999 mls/hr Q31M STAT IV 01/14/18 23:32 01/15/18 00:02 DC 01/14/18 23:32 999 MLS/HR Sodium Chloride 1,000 ml @ 150 mls/hr Q6H40M STAT IV 01/14/18 23:32 01/15/18 06:05 DC 01/14/18 23:32 150 MLS/HR ECG Per My Interpretation Indication: syncope Rate (beats per minute): 70 Rhythm: other (atrially paced) Findings: no acute ischemic change, other (QTC of 449) ED Course 2138: Past medical records reviewed. The patient was evaluated in room B5. A complete history and physical examination was performed. 2299: I checked on the patient. The patient's pacemaker was unable to be interrogated. 2331: Ordered Sodium Chloride 1000 ml @ 150 mls/hr IV, Sodium Chloride 500 ml @ 999 mls/hr IV. 2350: Upon reevaluation, the patient is resting comfortably. I discussed laboratory and radiographic results with her family who verbalized agreement of the treatment plan. The patient will be evaluated for further management and care by Dr. Vera/ Medical Decision Differential diagnosis: Etiologies such as vasovagal event, infection, hypoglycemia, electrolyte abnormalities, cardiac sources, intracerebral event, toxicologic, neurologic, as well as others were entertained. This patient was evaluated and appeared to be in no significant distress. IV access was obtained and laboratory work was drawn. Patient is orthostatic on exam. She was hydrated with normal saline solution. Nursing staff is unable to interrogate the patient's pacemaker tonight. Chest x-ray was performed and is negative for acute pathology. Patient's laboratory work reveals a leukocytosis and a mild anemia. Patient was straight cathed for a urine but no urine was obtained. IV hydration will be continued. Given the recurrent syncopal episodes despite pacemaker placement, the hospitalist service has been consulted for further management. Patient's family is aware of the plan and agrees. Medication Reconcilliation Current Medication List: was personally reviewed by me Blood Pressure Screening Patient's blood pressure: Normal blood pressure Consults Time Called: 2319 Consulting Physician: Dr. Dustin Harris Returned Call: [phone] I reviewed the patient's case with Dr. Vera who will evaluate the patient for further management. Impression Primary Impression: Syncope Additional Impressions: Orthostasis Advanced dementia Scribe Attestation The scribe's documentation has been prepared under my direction and personally reviewed by me in its entirety. I confirm that the note above accurately reflects all work, treatment, procedures, and medical decision making performed by me. Departure Information Dispostion Being Evaluated By Hospitalist Referrals Jeanne Drake M.D. (PCP) Patient Instructions My [facility] Problem Qualifiers
--- NOTE | 2018-01-14 22:34 | DIAGNOSTIC IMAGING REPORT ---
CHEST ONE VIEW PORTABLE HISTORY: 62 years-old Female syncope acute syncope COMPARISON: Chest radiograph 12/25/2017 TECHNIQUE: Portable AP view of the chest FINDINGS: Cardiac silhouette is mildly enlarged. Left subclavian pacer appears unchanged. No pneumothorax. Mild pulmonary vascular congestion without overt pulmonary edema. Small right pleural effusion with unchanged right basilar opacities. Bones appear grossly intact. IMPRESSION: 1. Cardiomegaly with mild pulmonary vascular congestion. 2. Unchanged small right pleural effusion with right basilar opacities The above report was generated using voice recognition software. It may contain grammatical, syntax or spelling errors. Electronically signed by: Conrad Orozco M.D. 01/14/2018 10:33 PM Dictated Date/Time: 01/14/2018 10:31 PM
[2018-01-14] MEDS ORDERED: MULT-222 PO (22:58)
[2018-01-14] MEDS ORDERED: ASPI81TA28 PO (22:58)
[2018-01-14 23:02] LABS: BASO % 0.1 %; BASO ABS # 0.02 K/uL (0-0.2); EOS % 1.6 %; EOS ABS # 0.23 K/uL (0-0.5); HEMATOCRIT 32.4 % (37-47); HEMOGLOBIN 10.6 g/dL (12.0-16.0); IG# 0.03 K/uL (0.00-0.02); LYMPH % 9.6 %; LYMPH ABS # 1.37 K/uL (1.2-3.4); MEAN CELL VOLUME 56.7 fL (80-100); MEAN CORPUSCULAR HEMOGLOBIN 18.6 pg (25-34); MEAN CORPUSCULAR HGB CONC 32.7 g/dl (32-36); MONO % 5.1 %; MONO ABS # 0.72 K/uL (0.11-0.59); NEUT % 83.4 %; NEUT ABS # 11.84 K/uL (1.4-6.5); PLATELET COUNT 254 K/uL (130-400); RED CELL DISTRIBUTION WIDTH CV 16.7 % (11.5-14.5); RED CELL DISTRIBUTION WIDTH SD 33.4 fL (36.4-46.3); WHITE BLOOD COUNT 14.21 K/uL (4.8-10.8)
[2018-01-14 23:30] LABS: ALBUMIN 3.2 gm/dl (3.4-5.0); ALT/SGPT 44 U/L (12-78); AST/SGOT 29 U/L (15-37); BLOOD UREA NITROGEN 28 mg/dl (7-18); CALCIUM 8.1 mg/dl (8.5-10.1); CARBON DIOXIDE 30 mmol/L (21-32); CREATININE 0.98 mg/dl (0.60-1.20); GLUCOSE 121 mg/dl (70-99); POTASSIUM 4.1 mmol/L (3.5-5.1); SODIUM 141 mmol/L (136-145)
[2018-01-14] MEDS ORDERED: SODIUM CHLORIDE 0.9% 500ML 500 ML IV STA (23:32)
[2018-01-14] MEDS ORDERED: SODIUM CHLORIDE 0.9% 1000ML 1,000 ML IV STA (23:32)
[2018-01-14 23:41] LABS: ALKALINE PHOSPHATASE 158 U/L (45-117); TOTAL PROTEIN 6.8 gm/dl (6.4-8.2)
[2018-01-15] VITALS (8 sets, daily range): BP systolic 104–144; BP diastolic 59–81; PULSE 65–89; TEMP 36.7–37.6; O2SAT 92–98; Ht 165.1 cm; Wt 76.0 kg
[2018-01-15] MEDS ORDERED: IV FLUIDS COMPLETED PRN (02:45)
--- NOTE | 2018-01-15 06:00 | History and Physical ---
History & Physical Date & Time of Service: January 15, 2018 at 05:39 Chief Complaint: Syncope Primary Care Physician: Jeanne Drake M.D. History of Present Illness Source: family, hospital records 62 year old female with with past medical history of dementia, CVA, dyslipidemia , hypothyroidism, chronic anemia, multiple admission for syncope. Patient was recently discharged in December to [facility] for rehab for syncope. He had a dual pacemaker placed in the last admission. History obtained from family due to patient dementia. Has poor been she was walking with patient when patient almost passed out. He said that he had to hold her in order to avoid her to fall and sat her. He said patient lost consciousness for about 45 seconds. has been she was diaphoretic. As per denies any fever, chills, shortness of breath, palpitation, and chest pain. Past Medical/Surgical History Medical Problems: (1) Acute electrocardiogram changes (2) Advanced dementia (3) Chest discomfort (4) CVA (cerebral infarction) (5) Dizziness (6) HLD (hyperlipidemia) (7) Hypothyroidism (8) PVC (premature ventricular contraction) (9) Syncopal episodes (10) Syncope (11) Syncope (12) Vomiting Surgical Problems: (1) H/O tubal ligation (2) S/P placement of cardiac pacemaker Family History Alzheimer's disease Social History Smoking Status: Never Smoker Drug Use: none Marital Status: Housing status: lives with significant other Occupational Status: retired Allergies Coded Allergies: Penicillins (Verified Allergy, Unknown, unknown, 09/23/17) Home Medications Scheduled Aspirin (Aspirin Ec), 81 MG PO DAILY Docusate Sodium (Stool Softener), 100 MG PO QAM Donepezil Hydrochloride (Donepezil Hcl), 23 MG PO HS Doxepin Hcl (Doxepin), 75 MG PO HS Levothyroxine Sodium (Levothyroxine Sodium), 50 MCG PO QAM Memantine HCl (Memantine HCl), 10 MG PO BID Multiple Vitamins W/ Minerals (Multi For Her), 1 TAB PO DAILY Sertraline HCl (Sertraline HCl), 100 MG PO QAM Simvastatin (Simvastatin), 20 MG PO HS Review of Systems Limited due to dementia Constitutional: No fever, No chills Eyes: No eye pain, No diplopia ENT: No nasal symptoms, No sore throat Respiratory: No cough, No shortness of breath, No dyspnea on exertion Cardiovascular: No chest pain, No palpitations Abdomen: No pain, No nausea, No vomiting Musculoskeletal: No calf pain Genitourinary - Female: No dysuria, No urinary frequency Neurologic: No weakness Psychiatric: No substance abuse Endocrine: No fatigue Hematologic / Lymphatic: No clotting problems Integumentary: No rash, No itch Physical Exam Vital Signs Date Time Temp Pulse Resp B/P (MAP) Pulse Ox O2 Delivery O2 Flow Rate FiO2 01/15/18 04:00 Room Air 01/15/18 03:58 37.1 81 18 130/68 (88) 95 Room Air 01/15/18 03:13 36.7 89 18 144/59 98 Room Air 01/15/18 02:22 75 16 152/100 97 01/15/18 01:39 83 14 144/79 01/15/18 01:18 77 01/14/18 23:30 94 128/90 91 119/75 103 105/66 01/14/18 22:30 72 18 132/70 97 Room Air 01/14/18 21:13 83 01/14/18 21:12 36.7 80 18 126/79 97 Room Air General Appearance: WD/WN, no apparent distress Head: normocephalic, atraumatic Eyes: PERRL, EOMI ENT: normal ENT inspection Neck: no JVD, trachea midline Respiratory/Chest: no respiratory distress, no accessory muscle use Cardiovascular: regular rate, rhythm, no JVD Abdomen/GI: normal bowel sounds, non tender Back: no CVA tenderness Extremities/Musculoskelatal: no calf tenderness Neurologic/Psych: alert, normal mood/affect Skin: warm/dry, no rash Diagnostics Laboratory Results Results Past 24 Hours Test 01/14/18 22:46 Range/Units White Blood Count 14.21 4.8-10.8 K/uL Red Blood Count 5.71 4.2-5.4 M/uL Hemoglobin 10.6 12.0-16.0 g/dL Hematocrit 32.4 37-47 % Mean Corpuscular Volume 56.7 80-100 fL Mean Corpuscular Hemoglobin 18.6 25-34 pg Mean Corpuscular Hemoglobin Concent 32.7 32-36 g/dl Platelet Count 254 130-400 K/uL Neutrophils (%) (Auto) 83.4 % Lymphocytes (%) (Auto) 9.6 % Monocytes (%) (Auto) 5.1 % Eosinophils (%) (Auto) 1.6 % Basophils (%) (Auto) 0.1 % Neutrophils # (Auto) 11.84 1.4-6.5 K/uL Lymphocytes # (Auto) 1.37 1.2-3.4 K/uL Monocytes # (Auto) 0.72 0.11-0.59 K/uL Eosinophils # (Auto) 0.23 0-0.5 K/uL Basophils # (Auto) 0.02 0-0.2 K/uL RDW Standard Deviation 33.4 36.4-46.3 fL RDW Coefficient of Variation 16.7 11.5-14.5 % Immature Granulocyte % (Auto) 0.2 % Immature Granulocyte # (Auto) 0.03 0.00-0.02 K/uL Microcytosis PRESENT Ovalocytes 1+ Sodium Level 141 136-145 mmol/L Potassium Level 4.1 3.5-5.1 mmol/L Chloride Level 107 98-107 mmol/L Carbon Dioxide Level 30 21-32 mmol/L Anion Gap 4.0 3-11 mmol/L Blood Urea Nitrogen 28 7-18 mg/dl Creatinine 0.98 0.60-1.20 mg/dl Est Creatinine Clear Calc Drug Dose 61.5 ml/min Estimated GFR () 71.7 Estimated GFR (Non- 61.8 BUN/Creatinine Ratio 28.3 10-20 Random Glucose 121 70-99 mg/dl Calcium Level 8.1 8.5-10.1 mg/dl Magnesium Level 2.1 1.8-2.4 mg/dl Total Bilirubin 0.3 0.2-1 mg/dl Direct Bilirubin < 0.1 0-0.2 mg/dl Aspartate Amino Transf (AST/SGOT) 29 15-37 U/L Alanine Aminotransferase (ALT/SGPT) 44 12-78 U/L Alkaline Phosphatase 158 45-117 U/L Troponin I < 0.015 0-0.045 ng/ml Total Protein 6.8 6.4-8.2 gm/dl Albumin 3.2 3.4-5.0 gm/dl Thyroid Stimulating Hormone (TSH) 1.040 0.300-4.500 uIu/ml Diagnostic Radiology [~ rep ct add3]] CHEST ONE VIEW PORTABLE HISTORY: 62 years-old Female syncope acute syncope COMPARISON: Chest radiograph 12/25/2017 TECHNIQUE: Portable AP view of the chest FINDINGS: Cardiac silhouette is mildly enlarged. Left subclavian pacer appears unchanged. No pneumothorax. Mild pulmonary vascular congestion without overt pulmonary edema. Small right pleural effusion with unchanged right basilar opacities. Bones appear grossly intact. IMPRESSION: 1. Cardiomegaly with mild pulmonary vascular congestion. 2. Unchanged small right pleural effusion with right basilar opacities The above report was generated using voice recognition software. It may contain grammatical, syntax or spelling errors. Electronically signed by: Conrad Orozco M.D. 01/14/2018 10:33 PM Dictated Date/Time: 01/14/2018 10:31 PM Impression Assessment and Plan RECURRENT SYNCOPAL EPISODES Status post dual chamber pacemaker 3 weeks ago Will admit on tele Will do pacemaker interrogation Neuro check No focal neuro deficit Fall precaution Cardio consult DEMENTIA advanced dementia Alzheimer's type Continue Namenda and donepezil HYPOTHYROIDISM Continue levothyroxine HLD Continue statin CHRONIC ANEMIA Hgb stable DVT Prophylaxis Lovenox SQ FULL CODE Advanced Directives Existing Living Will: Yes Existing Power of Shaper Hand: Yes Resuscitation Status VTE Prophylaxis Will order VTE Prophylaxis: Yes
[2018-01-15] MEDS: LEVOTHYROXINE 50 MCG TAB PO SCH (06:32)
[2018-01-15] MEDS: DOCUSATE SODIUM 100 MG CAP PO SCH (09:01)
[2018-01-15] MEDS: MEMANTINE 10 MG TAB PO SCH ×2 (09:01→21:16)
[2018-01-15] MEDS: ASPIRIN 81 MG ECTAB PO SCH (09:01)
[2018-01-15] MEDS: SERTRALINE HCL 100 MG TAB PO SCH (09:01)
[2018-01-15] MEDS: CEROVITE ADV FORMULA TAB PO SCH (09:01)
[2018-01-15] MEDS: ENOXAPARIN 40 MG/0.4 ML SYR SQ SCH (09:02)
--- NOTE | 2018-01-15 15:55 | Cardiology Consultation ---
Cardiology Consultation Date of Consultation: January 15, 2018. Requesting Physician: Katy Reason for Consultation: Syncope Pt evaluation today including: conversation w/ patient, conversation w/ family , physical exam, chart review, lab review, review of studies History of Present Illness The patient is a 62-year-old woman with a history of advanced dementia and syncope who was admitted to [facility] after another episode of syncope. Patient was admitted approximately 1 month ago with syncope and at that time was felt to be a good candidate for implantation of a permanent pacemaker. She had evidence of junctional bradycardia on telemetry and this was felt to be a possible mechanism for her episodes of syncope. In the past she has also been noted to have orthostatic hypotension and been on fludrocortisone. Patient was discharged to rehab and apparently did quite well. She was home for a few days when last evening she experienced an episode of syncope. Her describe the details. It seems he was getting her ready for bed when she began to feel weak. He guided her to a seated position where she eventually lost consciousness. He feels that she was unconscious for 45 seconds. She was markedly diaphoretic. Afterwards she did not regain her usual personality for an extended period. She has not report other symptoms. According to her she has otherwise been feeling well lately. Past Medical/Surgical History Dementia Orthostatic hypotension Carpal tunnel syndrome Hyperlipidemia Hypothyroid Symptomatic PVCs Past surgical history: Cataracts Implantation of dual-chamber Biotronik pacemaker Family History Alzheimer's disease Noncontributory Social History Smoking Status: Never Smoker History of Alcohol Use: No Currently lives with her Review of Systems The patient did not endorse any current symptoms of breathing difficulty, chest pains or palpitations. She was not aware of any dizziness. She did appreciate the fact that she fainted. Additional review of systems was limited by her cognitive disorder. All Other Systems: Reviewed and Negative Allergies Coded Allergies: Penicillins (Verified Allergy, Unknown, unknown, 09/23/17) Medications Current Inpatient Medications Medications (Trade) Dose Ordered Sig/Jevon Route Start Time Stop Time Status Last Admin Dose Admin Miscellaneous (Iv Fluids Completed) 1 ea PRN PRN N/A 01/15/18 02:45 01/15/19 02:44 Enoxaparin Sodium (Lovenox Inj) 40 mg QAM SQ 01/15/18 09:00 02/14/18 08:59 01/15/18 09:02 40 MG Aspirin (Ecotrin Tab) 81 mg DAILY PO 01/15/18 09:00 02/14/18 08:59 01/15/18 09:01 81 MG Docusate Sodium (coLACE CAP) 100 mg QAM PO 01/15/18 09:00 02/14/18 08:59 01/15/18 09:01 100 MG Doxepin HCl (Sinequan Cap) 75 mg HS PO 01/15/18 21:00 02/14/18 20:59 Levothyroxine Sodium (Synthroid Tab) 50 mcg DAILYBB PO 01/15/18 06:30 02/14/18 06:29 01/15/18 06:32 50 MCG Memantine (Namenda Tab) 10 mg BID PO 01/15/18 09:00 02/14/18 08:59 01/15/18 09:01 10 MG Multivitamins/ Minerals (Multivitamin W/ Minerals Tab) 1 tab DAILY PO 01/15/18 09:00 02/14/18 08:59 01/15/18 09:01 1 TAB Sertraline HCl (Zoloft Tab) 100 mg QAM PO 01/15/18 09:00 02/14/18 08:59 01/15/18 09:01 100 MG Simvastatin (Zocor Tab) 20 mg HS PO 01/15/18 21:00 02/14/18 20:59 Miscellaneous Information (Order Awaiting Action) 1 ea QS N/A 01/15/18 08:00 02/14/18 07:59 Physical Exam Vital Signs Past 12 Hours Date Time Temp Pulse Resp B/P (MAP) Pulse Ox O2 Delivery O2 Flow Rate FiO2 01/15/18 15:31 37.6 86 18 95 01/15/18 15:03 68 120/73 (89) 01/15/18 12:00 Room Air 01/15/18 12:00 36.9 80 12 104/79 (87) 94 Room Air 01/15/18 08:00 37.1 65 12 126/81 (96) 93 Room Air 01/15/18 08:00 93 Room Air 01/15/18 04:00 Room Air 01/15/18 03:58 37.1 81 18 130/68 (88) 95 Room Air She is alert and oriented to person. Mood affect appear normal. She answered all questions appropriately but could not provide much in the way of detailed history. HEENT: Sclerae are anicteric. Pupils are equal and reactive to light and accommodation. Extraocular movements were intact. Neuro: Cranial nerves intact Neck: Examination of the submandibular region did not reveal any significant lymphadenopathy. Carotids are palpable bilaterally and free of bruits on auscultation. There was no evidence of jugular venous distention. The thyroid was not enlarged. Lungs: Lungs are clear to auscultation bilaterally. There are no rales wheezes or rhonchi. She has normal respiratory effort without use of accessory muscles. There is normal pulmonary excursion. Cardiac: The rhythm was regular. S1 and S2 were normal. There are no murmurs on examination. The PMI was not markedly displaced on palpation. Abdomen: The abdomen was soft and nontender. Extremities: Patient has bilateral radial pulses that are equal in intensity. There is no evidence cyanosis or clubbing. There was no evidence of significant peripheral edema bilaterally. Skin: There are no rashes noted on examination today. Data Laboratory Results: Last 24 Hours Test 01/14/18 22:46 01/15/18 06:31 White Blood Count 14.21 K/uL Red Blood Count 5.71 M/uL Hemoglobin 10.6 g/dL Hematocrit 32.4 % Mean Corpuscular Volume 56.7 fL Mean Corpuscular Hemoglobin 18.6 pg Mean Corpuscular Hemoglobin Concent 32.7 g/dl Platelet Count 254 K/uL Neutrophils (%) (Auto) 83.4 % Lymphocytes (%) (Auto) 9.6 % Monocytes (%) (Auto) 5.1 % Eosinophils (%) (Auto) 1.6 % Basophils (%) (Auto) 0.1 % Neutrophils # (Auto) 11.84 K/uL Lymphocytes # (Auto) 1.37 K/uL Monocytes # (Auto) 0.72 K/uL Eosinophils # (Auto) 0.23 K/uL Basophils # (Auto) 0.02 K/uL RDW Standard Deviation 33.4 fL RDW Coefficient of Variation 16.7 % Immature Granulocyte % (Auto) 0.2 % Immature Granulocyte # (Auto) 0.03 K/uL Microcytosis PRESENT Ovalocytes 1+ Sodium Level 141 mmol/L Potassium Level 4.1 mmol/L Chloride Level 107 mmol/L Carbon Dioxide Level 30 mmol/L Anion Gap 4.0 mmol/L Blood Urea Nitrogen 28 mg/dl Creatinine 0.98 mg/dl Est Creatinine Clear Calc Drug Dose 61.5 ml/min Estimated GFR () 71.7 Estimated GFR (Non- 61.8 BUN/Creatinine Ratio 28.3 Random Glucose 121 mg/dl Calcium Level 8.1 mg/dl Magnesium Level 2.1 mg/dl Total Bilirubin 0.3 mg/dl Direct Bilirubin < 0.1 mg/dl Aspartate Amino Transf (AST/SGOT) 29 U/L Alanine Aminotransferase (ALT/SGPT) 44 U/L Alkaline Phosphatase 158 U/L Troponin I < 0.015 ng/ml Total Protein 6.8 gm/dl Albumin 3.2 gm/dl Thyroid Stimulating Hormone (TSH) 1.040 uIu/ml Prothrombin Time 10.7 SECONDS Prothromb Time International Ratio 1.0 Imaging: Chest x-ray suggestive of pulmonary congestion EKG: Atrially paced rhythm Telemetry reviewed: Atrial pacing Patient did undergo interrogation of her Biotronik pacemaker. This revealed normal function. She is about 75 percent atrial pacing. She did have 1 tachyarrhythmia lasting 32 seconds. This appeared to be in SVT. It occurred around 7:30 p.m. on January 14 Assessment & Plan 1. Syncope: Mechanism of the patient's syncope has yet to be definitively concluded. However, she is known to have an element of orthostatic hypotension. Her blood pressure did drop with standing at the time she was evaluated here in the hospital. Some of her symptoms suggest high vagal tone in this would include her marked diaphoresis as well as a period of feeling poorly afterwards. One interesting finding is the presence of a tachyarrhythmia at the time of her syncope. Undoubtedly this plays a role in her event. I doubt that she would lose consciousness with that heart rate for that duration of time, however it may have triggered an episode of vagally mediated syncope. In any event, it would seem reasonable to try to limit these episodes. Beta-steph would be a good choice for most patients but with her history of orthostatic hypotension this is less attractive. Digoxin may have less efficacy overall but I think represents a reasonable 1st choice given her other comorbidities. One advantage with her pacemakers that we will be able to follow any recurrent episodes of tachyarrhythmia and determine the efficacy of her medical therapy. It seems fludrocortisone was discontinued at the time for pacemaker implantation. I am not sure that would have attenuated or prevented the episode she experienced yesterday. At this point I do not feel compelled to restart the fludrocortisone although this could be considered in the future.
[2018-01-15] MEDS: DOXEPIN HCL 75 MG CAP PO SCH (21:16)
[2018-01-15] MEDS: SIMVASTATIN 20 MG TAB PO SCH (21:16)
--- NOTE | 2018-01-15 22:45 | Progress Note ---
Medicine Progress Note Date & Time of Visit: January 15, 2018 at 18:20 . Subjective CC: Follow-up visit for syncope. HPI: Admitted early this morning after recurrent syncopal episode. Patient is confused and has no recollection of the event. Has pacemaker for junctional bradycardia with previous episodes of syncope. Pacemaker interrogation today demonstrated a narrow-complex tachycardia lasting for 32 seconds, which seemed to occur at the time of her syncopal episode last evening. Pt denies any CP, palpitations, lightheadedness today. ROS: General- no fever, no chills Resp- no cough; no shortness of breath Cardiac- as noted above in HPI GI- no nausea, no vomiting, no diarrhea . Objective Last 8 Hrs Date Time Temp Pulse Resp B/P (MAP) Pulse Ox O2 Delivery O2 Flow Rate FiO2 01/15/18 20:45 Room Air 01/15/18 19:03 37.1 88 18 105/69 (81) 92 Room Air 01/15/18 16:00 Room Air 01/15/18 15:31 37.6 86 18 95 01/15/18 15:03 68 120/73 (89) Physical Exam: General- lying in bed; no distress Lungs- clear to auscultation; no respiratory distress Cardiovascular- RRR; no murmur or gallop appreciated; no JVD; no pretibial edema Abdomen- + bowel sounds, soft, nontender Extremities- no cyanosis; no calf tenderness Neuro- alert, confused Skin- warm & dry . Laboratory Results: Last 24 Hours Test 01/14/18 22:46 01/15/18 06:31 White Blood Count 14.21 K/uL Red Blood Count 5.71 M/uL Hemoglobin 10.6 g/dL Hematocrit 32.4 % Mean Corpuscular Volume 56.7 fL Mean Corpuscular Hemoglobin 18.6 pg Mean Corpuscular Hemoglobin Concent 32.7 g/dl Platelet Count 254 K/uL Neutrophils (%) (Auto) 83.4 % Lymphocytes (%) (Auto) 9.6 % Monocytes (%) (Auto) 5.1 % Eosinophils (%) (Auto) 1.6 % Basophils (%) (Auto) 0.1 % Neutrophils # (Auto) 11.84 K/uL Lymphocytes # (Auto) 1.37 K/uL Monocytes # (Auto) 0.72 K/uL Eosinophils # (Auto) 0.23 K/uL Basophils # (Auto) 0.02 K/uL RDW Standard Deviation 33.4 fL RDW Coefficient of Variation 16.7 % Immature Granulocyte % (Auto) 0.2 % Immature Granulocyte # (Auto) 0.03 K/uL Microcytosis PRESENT Ovalocytes 1+ Sodium Level 141 mmol/L Potassium Level 4.1 mmol/L Chloride Level 107 mmol/L Carbon Dioxide Level 30 mmol/L Anion Gap 4.0 mmol/L Blood Urea Nitrogen 28 mg/dl Creatinine 0.98 mg/dl Est Creatinine Clear Calc Drug Dose 61.5 ml/min Estimated GFR () 71.7 Estimated GFR (Non- 61.8 BUN/Creatinine Ratio 28.3 Random Glucose 121 mg/dl Calcium Level 8.1 mg/dl Magnesium Level 2.1 mg/dl Total Bilirubin 0.3 mg/dl Direct Bilirubin < 0.1 mg/dl Aspartate Amino Transf (AST/SGOT) 29 U/L Alanine Aminotransferase (ALT/SGPT) 44 U/L Alkaline Phosphatase 158 U/L Troponin I < 0.015 ng/ml Total Protein 6.8 gm/dl Albumin 3.2 gm/dl Thyroid Stimulating Hormone (TSH) 1.040 uIu/ml Prothrombin Time 10.7 SECONDS Prothromb Time International Ratio 1.0 Assessment & Plan SYNCOPE Recurrent syncope. Probably due to SVT and/or orthostatic hypotension. Management of specific problems outlined below. SVT Noted on pacemaker interrogation. Discussed with Cardiology. Will opt for therapy with digoxin rather than beta steph or calcium channel steph in light of orthostatic hypotension. ORTHOSTATIC HYPOTENSION Chronic problem. Has been on fludrocortisone in the past, but not recently. BUN 28, creatinine 0.98 on admission. Encourage PO fluids. Check f/u orthostatic vital signs. Check f/u labs. DEMENTIA Monitor for delirium. HYPOTHYROIDISM TSH = 1.040. Continue levothyroxine. VTE PROPHYLAXIS SQ heparin. Ambulate. DISPOSITION Expected discharge to home. Internal Medicine follow-up with Dr. Drake. . Current Inpatient Medications: Current Inpatient Medications Medications (Trade) Dose Ordered Sig/Jevon Route Start Time Stop Time Status Last Admin Dose Admin Miscellaneous (Iv Fluids Completed) 1 ea PRN PRN N/A 01/15/18 02:45 01/15/19 02:44 Enoxaparin Sodium (Lovenox Inj) 40 mg QAM SQ 01/15/18 09:00 02/14/18 08:59 01/15/18 09:02 40 MG Aspirin (Ecotrin Tab) 81 mg DAILY PO 01/15/18 09:00 02/14/18 08:59 01/15/18 09:01 81 MG Docusate Sodium (coLACE CAP) 100 mg QAM PO 01/15/18 09:00 02/14/18 08:59 01/15/18 09:01 100 MG Doxepin HCl (Sinequan Cap) 75 mg HS PO 01/15/18 21:00 02/14/18 20:59 01/15/18 21:16 75 MG Levothyroxine Sodium (Synthroid Tab) 50 mcg DAILYBB PO 01/15/18 06:30 02/14/18 06:29 01/15/18 06:32 50 MCG Memantine (Namenda Tab) 10 mg BID PO 01/15/18 09:00 02/14/18 08:59 01/15/18 21:16 10 MG Multivitamins/ Minerals (Multivitamin W/ Minerals Tab) 1 tab DAILY PO 01/15/18 09:00 02/14/18 08:59 01/15/18 09:01 1 TAB Sertraline HCl (Zoloft Tab) 100 mg QAM PO 01/15/18 09:00 02/14/18 08:59 01/15/18 09:01 100 MG Simvastatin (Zocor Tab) 20 mg HS PO 01/15/18 21:00 02/14/18 20:59 01/15/18 21:16 20 MG Miscellaneous Information (Order Awaiting Action) 1 ea QS N/A 01/15/18 08:00 02/14/18 07:59
[2018-01-16 03:41] VITALS: BP 111/64; PULSE 80; TEMP 36.7; O2SAT 95
[2018-01-16] MEDS: LEVOTHYROXINE 50 MCG TAB PO SCH (06:10)
[2018-01-16 06:40] VITALS: BP_SYST 117; BP_SYST 122; BP_SYST 85; BP_DIAS 57; BP_DIAS 77; BP_DIAS 80; PULSE 97; TEMP 36.9; O2SAT 94
[2018-01-16 07:26] LABS: CALCIUM 8.5 mg/dl (8.5-10.1); CREATININE 0.91 mg/dl (0.60-1.20); POTASSIUM 3.8 mmol/L (3.5-5.1)
[2018-01-16] MEDS: SERTRALINE HCL 100 MG TAB PO SCH (07:40)
[2018-01-16] MEDS: ENOXAPARIN 40 MG/0.4 ML SYR SQ SCH (07:40)
[2018-01-16] MEDS: DIGOXIN 0.25 MG TAB PO SCH ×2 (07:41→21:14)
[2018-01-16] MEDS: DOCUSATE SODIUM 100 MG CAP PO SCH (07:41)
[2018-01-16] MEDS: CEROVITE ADV FORMULA TAB PO SCH (07:41)
[2018-01-16] MEDS: MEMANTINE 10 MG TAB PO SCH ×2 (07:41→21:14)
[2018-01-16] MEDS: ASPIRIN 81 MG ECTAB PO SCH (07:41)
[2018-01-16] MEDS ORDERED: LACTATED RINGER'S 1000ML 1,000 ML IV SCH (07:45)
[2018-01-16 12:05] VITALS: BP 107/73; PULSE 75; TEMP 36.8; O2SAT 95
[2018-01-16 14:03] VITALS: BP_SYST 106; BP_SYST 113; BP_SYST 67; BP_DIAS 47; BP_DIAS 71; BP_DIAS 77; PULSE 78; PULSE 89; TEMP 37.1; O2SAT 96
--- NOTE | 2018-01-16 19:12 | Progress Note ---
Medicine Progress Note Date & Time of Visit: January 16, 2018 at 11:10 . Subjective CC: Follow-up visit for syncope. HPI: Admitted 01/14 after recurrent syncopal episode. Patient is confused and has no recollection of the event. Has pacemaker for junctional bradycardia with previous episodes of syncope. Pacemaker interrogation demonstrated a narrow-complex tachycardia lasting for 32 seconds, which seemed to occur at the time of her syncopal episode prior to admission. Pt denies any CP, palpitations, lightheadedness. ROS: General- no fever, no chills Resp- no cough; no shortness of breath Cardiac- as noted above in HPI GI- no nausea, no vomiting, no diarrhea . Objective Last 8 Hrs Date Time Temp Pulse Resp B/P (MAP) Pulse Ox O2 Delivery O2 Flow Rate FiO2 01/16/18 16:00 Room Air 01/16/18 14:03 37.1 89 20 113/77 (89) 96 Room Air 78 106/71 (83) 78 67/47 (54) 01/16/18 12:05 36.8 75 18 107/73 (84) 95 Room Air 01/16/18 12:00 Room Air Physical Exam: General- lying in bed; no distress Lungs- clear to auscultation; no respiratory distress Cardiovascular- RRR; no murmur or gallop appreciated; no JVD; no pretibial edema Abdomen- + bowel sounds, soft, nontender Extremities- no cyanosis; no calf tenderness Neuro- alert, confused Skin- warm & dry . Laboratory Results: Last 24 Hours Test 01/16/18 06:32 Sodium Level 140 mmol/L Potassium Level 3.8 mmol/L Chloride Level 108 mmol/L Carbon Dioxide Level 27 mmol/L Anion Gap 5.0 mmol/L Blood Urea Nitrogen 16 mg/dl Creatinine 0.91 mg/dl Est Creatinine Clear Calc Drug Dose 65.1 ml/min Estimated GFR () 78.4 Estimated GFR (Non- 67.6 BUN/Creatinine Ratio 17.5 Random Glucose 101 mg/dl Calcium Level 8.5 mg/dl Assessment & Plan SYNCOPE Recurrent syncope. Probably due to SVT and/or orthostatic hypotension. Management of specific problems outlined below. SVT Noted on pacemaker interrogation. Discussed with Cardiology. Opted for therapy with digoxin rather than beta steph or calcium channel steph in light of orthostatic hypotension. ORTHOSTATIC HYPOTENSION Chronic problem. Had been on fludrocortisone in the past, but discontinued because of pedal edema. BUN 28, creatinine 0.98 on admission. Encourage PO fluids. Still orthostatic today. Additional IV fluids ordered. Consider decreasing or discontinuing doxepin. DEMENTIA Followed by Dr. Paz. 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 Donepezil has been associated with syncope; ?? discontinue- will discuss with Neurology. Monitor for delirium. HYPOTHYROIDISM TSH = 1.040. Continue levothyroxine. VTE PROPHYLAXIS SQ heparin. Ambulate. DISPOSITION Expected discharge to home. Internal Medicine follow-up with Dr. Drake. . Current Inpatient Medications: Current Inpatient Medications Medications (Trade) Dose Ordered Sig/Jevon Route Start Time Stop Time Status Last Admin Dose Admin Miscellaneous (Iv Fluids Completed) 1 ea PRN PRN N/A 01/15/18 02:45 01/15/19 02:44 Enoxaparin Sodium (Lovenox Inj) 40 mg QAM SQ 01/15/18 09:00 02/14/18 08:59 01/16/18 07:40 40 MG Aspirin (Ecotrin Tab) 81 mg DAILY PO 01/15/18 09:00 02/14/18 08:59 01/16/18 07:41 81 MG Docusate Sodium (coLACE CAP) 100 mg QAM PO 01/15/18 09:00 02/14/18 08:59 01/16/18 07:41 100 MG Doxepin HCl (Sinequan Cap) 75 mg HS PO 01/15/18 21:00 02/14/18 20:59 01/15/18 21:16 75 MG Levothyroxine Sodium (Synthroid Tab) 50 mcg DAILYBB PO 01/15/18 06:30 02/14/18 06:29 01/16/18 06:10 50 MCG Memantine (Namenda Tab) 10 mg BID PO 01/15/18 09:00 02/14/18 08:59 01/16/18 07:41 10 MG Multivitamins/ Minerals (Multivitamin W/ Minerals Tab) 1 tab DAILY PO 01/15/18 09:00 02/14/18 08:59 01/16/18 07:41 1 TAB Sertraline HCl (Zoloft Tab) 100 mg QAM PO 01/15/18 09:00 02/14/18 08:59 01/16/18 07:40 100 MG Simvastatin (Zocor Tab) 20 mg HS PO 01/15/18 21:00 02/14/18 20:59 01/15/18 21:16 20 MG Miscellaneous Information (Order Awaiting Action) 1 ea QS N/A 01/15/18 08:00 02/14/18 07:59 Digoxin (Lanoxin Tab) 0.25 mg BID PO 01/16/18 09:00 01/17/18 21:01 01/16/18 07:41 0.25 MG
[2018-01-16 19:33] VITALS: BP 105/72; PULSE 76; TEMP 37.2; O2SAT 95
[2018-01-16] MEDS: SIMVASTATIN 20 MG TAB PO SCH (21:14)
[2018-01-16] MEDS: DOXEPIN HCL 75 MG CAP PO SCH (21:14)
[2018-01-16 23:41] VITALS: BP 122/78; PULSE 71; TEMP 36.8; O2SAT 92
[2018-01-17] VITALS (7 sets, daily range): BP systolic 107–134; BP diastolic 71–82; PULSE 75–86; TEMP 36.2–37.3; O2SAT 93–97
[2018-01-17] MEDS: LEVOTHYROXINE 50 MCG TAB PO SCH (06:05)
[2018-01-17 06:42] LABS: CALCIUM 8.5 mg/dl (8.5-10.1); CREATININE 0.77 mg/dl (0.60-1.20); POTASSIUM 3.7 mmol/L (3.5-5.1)
[2018-01-17] MEDS: MEMANTINE 10 MG TAB PO SCH ×2 (08:06→20:48)
[2018-01-17] MEDS: CEROVITE ADV FORMULA TAB PO SCH (08:06)
[2018-01-17] MEDS: SERTRALINE HCL 100 MG TAB PO SCH (08:06)
[2018-01-17] MEDS: DOCUSATE SODIUM 100 MG CAP PO SCH (08:07)
[2018-01-17] MEDS: DIGOXIN 0.25 MG TAB PO SCH ×2 (08:07→20:50)
[2018-01-17] MEDS: ASPIRIN 81 MG ECTAB PO SCH (08:07)
[2018-01-17] MEDS: ENOXAPARIN 40 MG/0.4 ML SYR SQ SCH (08:08)
--- NOTE | 2018-01-17 19:11 | Progress Note ---
Medicine Progress Note Date & Time of Visit: January 17, 2018 at 14:50 . Subjective CC: Follow-up visit for syncope. HPI: Admitted 01/14 after recurrent syncopal episode. Patient is confused and has no recollection of the event. Has pacemaker for junctional bradycardia with previous episodes of syncope. Pacemaker interrogation demonstrated a narrow-complex tachycardia lasting for 32 seconds, which seemed to occur at the time of her syncopal episode prior to admission. Started on digoxin. Pt denies any CP, palpitations, lightheadedness. ROS: General- no fever, no chills Resp- no cough; no shortness of breath Cardiac- as noted above in HPI GI- no nausea, no vomiting, no diarrhea . Objective Last 8 Hrs Date Time Temp Pulse Resp B/P (MAP) Pulse Ox O2 Delivery O2 Flow Rate FiO2 01/17/18 16:15 Room Air 01/17/18 14:44 36.6 77 16 115/71 (86) 95 Room Air 01/17/18 12:00 Room Air 01/17/18 11:15 36.5 78 16 108/73 (85) 97 Room Air Physical Exam: General- lying in bed; no distress Lungs- clear to auscultation; no respiratory distress Cardiovascular- RRR; no murmur or gallop appreciated; no JVD; no pretibial edema Abdomen- + bowel sounds, soft, nontender Extremities- no cyanosis; no calf tenderness Neuro- alert, confused Skin- warm & dry . Laboratory Results: Last 24 Hours Test 01/17/18 05:24 Sodium Level 141 mmol/L Potassium Level 3.7 mmol/L Chloride Level 107 mmol/L Carbon Dioxide Level 28 mmol/L Anion Gap 6.0 mmol/L Blood Urea Nitrogen 16 mg/dl Creatinine 0.77 mg/dl Est Creatinine Clear Calc Drug Dose 76.9 ml/min Estimated GFR () 95.9 Estimated GFR (Non- 82.8 BUN/Creatinine Ratio 20.7 Random Glucose 85 mg/dl Calcium Level 8.5 mg/dl Assessment & Plan SYNCOPE Recurrent syncope. Probably due to SVT and/or orthostatic hypotension. Management of specific problems outlined below. SVT Noted on pacemaker interrogation. Discussed with Cardiology. Opted for therapy with digoxin rather than beta steph or calcium channel steph in light of orthostatic hypotension. ORTHOSTATIC HYPOTENSION Chronic problem. Had been on fludrocortisone in the past, but discontinued because of pedal edema. BUN 28, creatinine 0.98 on admission. Persistent orthostasis after IV fluids. Encourage PO fluids. Doxepin could be contributing factor- decrease to 50 mg HS. Try thigh-high TEDS. DEMENTIA Followed by Dr. Paz. 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 Donepezil has been associated with syncope; ?? discontinue- will discuss with Neurology. Monitor for delirium. HYPOTHYROIDISM TSH = 1.040. Continue levothyroxine. VTE PROPHYLAXIS SQ heparin. Ambulate. DISPOSITION requests referral to [facility]. PT / OT evals. Case Management consulted. Internal Medicine follow-up with Dr. Drake. . Current Inpatient Medications: Current Inpatient Medications Medications (Trade) Dose Ordered Sig/Jevon Route Start Time Stop Time Status Last Admin Dose Admin Miscellaneous (Iv Fluids Completed) 1 ea PRN PRN N/A 01/15/18 02:45 01/15/19 02:44 Enoxaparin Sodium (Lovenox Inj) 40 mg QAM SQ 01/15/18 09:00 02/14/18 08:59 01/17/18 08:08 40 MG Aspirin (Ecotrin Tab) 81 mg DAILY PO 01/15/18 09:00 02/14/18 08:59 01/17/18 08:07 81 MG Docusate Sodium (coLACE CAP) 100 mg QAM PO 01/15/18 09:00 02/14/18 08:59 01/17/18 08:07 100 MG Doxepin HCl (Sinequan Cap) 75 mg HS PO 01/15/18 21:00 02/14/18 20:59 01/16/18 21:14 75 MG Levothyroxine Sodium (Synthroid Tab) 50 mcg DAILYBB PO 01/15/18 06:30 02/14/18 06:29 01/17/18 06:05 50 MCG Memantine (Namenda Tab) 10 mg BID PO 01/15/18 09:00 02/14/18 08:59 01/17/18 08:06 10 MG Multivitamins/ Minerals (Multivitamin W/ Minerals Tab) 1 tab DAILY PO 01/15/18 09:00 02/14/18 08:59 01/17/18 08:06 1 TAB Sertraline HCl (Zoloft Tab) 100 mg QAM PO 01/15/18 09:00 02/14/18 08:59 01/17/18 08:06 100 MG Simvastatin (Zocor Tab) 20 mg HS PO 01/15/18 21:00 02/14/18 20:59 01/16/18 21:14 20 MG Miscellaneous Information (Order Awaiting Action) 1 ea QS N/A 01/15/18 08:00 02/14/18 07:59 Digoxin (Lanoxin Tab) 0.25 mg BID PO 01/16/18 09:00 01/17/18 21:01 01/17/18 08:07 0.25 MG
[2018-01-17] MEDS: SIMVASTATIN 20 MG TAB PO SCH (20:50)
[2018-01-17] MEDS: DOXEPIN HCL 50 MG CAP PO SCH (21:09)
[2018-01-18] VITALS (8 sets, daily range): BP systolic 103–137; BP diastolic 68–84; PULSE 73–97; TEMP 36.6–37.4; O2SAT 90–97
[2018-01-18] MEDS: LEVOTHYROXINE 50 MCG TAB PO SCH (06:04)
[2018-01-18 06:13] LABS: HEMATOCRIT 32.2 % (37-47); HEMOGLOBIN 10.3 g/dL (12.0-16.0); MEAN CELL VOLUME 56.6 fL (80-100); MEAN CORPUSCULAR HEMOGLOBIN 18.1 pg (25-34); PLATELET COUNT 237 K/uL (130-400); RED CELL DISTRIBUTION WIDTH CV 16.3 % (11.5-14.5); RED CELL DISTRIBUTION WIDTH SD 32.6 fL (36.4-46.3); WHITE BLOOD COUNT 8.42 K/uL (4.8-10.8)
[2018-01-18 06:31] LABS: CALCIUM 8.7 mg/dl (8.5-10.1); CREATININE 0.91 mg/dl (0.60-1.20); POTASSIUM 3.6 mmol/L (3.5-5.1)
[2018-01-18] MEDS: DOCUSATE SODIUM 100 MG CAP PO SCH (07:47)
[2018-01-18] MEDS: ASPIRIN 81 MG ECTAB PO SCH (07:47)
[2018-01-18] MEDS: CEROVITE ADV FORMULA TAB PO SCH (07:47)
[2018-01-18] MEDS: SERTRALINE HCL 100 MG TAB PO SCH (07:47)
[2018-01-18] MEDS: ENOXAPARIN 40 MG/0.4 ML SYR SQ SCH (07:47)
[2018-01-18] MEDS: MEMANTINE 10 MG TAB PO SCH ×2 (07:48→20:30)
[2018-01-18] MEDS: DIGOXIN 0.25 MG TAB PO SCH (16:01)
[2018-01-18] MEDS: SIMVASTATIN 20 MG TAB PO SCH (20:30)
[2018-01-18] MEDS: DOXEPIN HCL 50 MG CAP PO SCH (20:30)
--- NOTE | 2018-01-18 21:18 | Progress Note ---
Medicine Progress Note Date & Time of Visit: January 18, 2018 at 14:40 . Subjective CC: Follow-up visit for syncope. HPI: Admitted 01/14 after recurrent syncopal episode. Patient has dementia and has no recollection of the event. Has pacemaker for junctional bradycardia with previous episodes of syncope. Pacemaker interrogation demonstrated a narrow-complex tachycardia lasting for 32 seconds, which seemed to occur at the time of her syncopal episode prior to admission. Started on digoxin. No further syncopal episodes. No arrhythmias noted since admission. Pt denies any CP, palpitations, lightheadedness. visiting. ROS: General- no fever, no chills Resp- no cough; no shortness of breath Cardiac- as noted above in HPI GI- no nausea, no vomiting, no diarrhea . Objective Last 8 Hrs Date Time Temp Pulse Resp B/P (MAP) Pulse Ox O2 Delivery O2 Flow Rate FiO2 01/18/18 20:00 93 Room Air 01/18/18 19:53 37.4 97 18 122/80 (94) 93 Room Air 01/18/18 16:01 90 01/18/18 16:00 94 Room Air 01/18/18 15:10 36.6 73 20 103/68 (80) 94 Physical Exam: General- lying in bed; no distress Lungs- clear to auscultation; no respiratory distress Cardiovascular- RRR; no murmur or gallop appreciated; no JVD; no pretibial edema Abdomen- + bowel sounds, soft, nontender Extremities- no cyanosis; no calf tenderness Neuro- alert, confused Skin- warm & dry . Laboratory Results: Last 24 Hours Test 01/18/18 05:41 White Blood Count 8.42 K/uL Red Blood Count 5.69 M/uL Hemoglobin 10.3 g/dL Hematocrit 32.2 % Mean Corpuscular Volume 56.6 fL Mean Corpuscular Hemoglobin 18.1 pg Mean Corpuscular Hemoglobin Concent 32.0 g/dl RDW Standard Deviation 32.6 fL RDW Coefficient of Variation 16.3 % Platelet Count 237 K/uL Sodium Level 140 mmol/L Potassium Level 3.6 mmol/L Chloride Level 106 mmol/L Carbon Dioxide Level 29 mmol/L Anion Gap 5.0 mmol/L Blood Urea Nitrogen 20 mg/dl Creatinine 0.91 mg/dl Est Creatinine Clear Calc Drug Dose 65.2 ml/min Estimated GFR () 78.4 Estimated GFR (Non- 67.6 BUN/Creatinine Ratio 22.1 Random Glucose 86 mg/dl Calcium Level 8.7 mg/dl Assessment & Plan SYNCOPE Recurrent syncope. Probably due to SVT and/or orthostatic hypotension. Management of specific problems outlined below. SVT Noted on pacemaker interrogation. Discussed with Cardiology. Opted for therapy with digoxin rather than beta steph or calcium channel steph in light of orthostatic hypotension. Check digoxin level tomorrow. ORTHOSTATIC HYPOTENSION Chronic problem. Had been on fludrocortisone in the past, but discontinued because of pedal edema. BUN 28, creatinine 0.98 on admission. Persistent orthostasis after IV fluids. Encourage PO fluids. Doxepin, donepezil, memantine could be contributing factors. Discussed meds with Neuro and IM. Taper doxepin- 50 mg x 3 days, 25 mg x 3 days, then DC. Discontinue donepezil. Thigh-high TEDS. DEMENTIA Followed by Dr. Paz. 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 Donepezil has been associated with syncope. Discussed with Neuro. DC donepezil, continue memantine. Monitor for delirium. HYPOTHYROIDISM TSH = 1.040. Continue levothyroxine. VTE PROPHYLAXIS SQ heparin. Ambulate. DISPOSITION requests referral to [facility]. PT / OT jacqueline. Case Management consulted. Internal Medicine follow-up with Dr. Drake. Neurology follow-up with Dr. Paz. visiting and given update. . Current Inpatient Medications: Current Inpatient Medications Medications (Trade) Dose Ordered Sig/Jevon Route Start Time Stop Time Status Last Admin Dose Admin Miscellaneous (Iv Fluids Completed) 1 ea PRN PRN N/A 01/15/18 02:45 01/15/19 02:44 Enoxaparin Sodium (Lovenox Inj) 40 mg QAM SQ 01/15/18 09:00 02/14/18 08:59 01/18/18 07:47 40 MG Aspirin (Ecotrin Tab) 81 mg DAILY PO 01/15/18 09:00 02/14/18 08:59 01/18/18 07:47 81 MG Docusate Sodium (coLACE CAP) 100 mg QAM PO 01/15/18 09:00 02/14/18 08:59 01/18/18 07:47 100 MG Levothyroxine Sodium (Synthroid Tab) 50 mcg DAILYBB PO 01/15/18 06:30 02/14/18 06:29 01/18/18 06:04 50 MCG Memantine (Namenda Tab) 10 mg BID PO 01/15/18 09:00 02/14/18 08:59 01/18/18 20:30 10 MG Multivitamins/ Minerals (Multivitamin W/ Minerals Tab) 1 tab DAILY PO 01/15/18 09:00 02/14/18 08:59 01/18/18 07:47 1 TAB Sertraline HCl (Zoloft Tab) 100 mg QAM PO 01/15/18 09:00 02/14/18 08:59 01/18/18 07:47 100 MG Simvastatin (Zocor Tab) 20 mg HS PO 01/15/18 21:00 02/14/18 20:59 01/18/18 20:30 20 MG Miscellaneous Information (Order Awaiting Action) 1 ea QS N/A 01/15/18 08:00 02/14/18 07:59 Doxepin HCl (Sinequan Cap) 50 mg HS PO 01/17/18 21:00 02/16/18 20:59 01/18/18 20:30 50 MG Digoxin (Lanoxin Tab) 0.25 mg DAILY@16 PO 01/18/18 16:00 02/17/18 15:59 01/18/18 16:01 0.25 MG
[2018-01-19 03:46] VITALS: BP 118/80; PULSE 70; TEMP 37; O2SAT 95
[2018-01-19] MEDS: LEVOTHYROXINE 50 MCG TAB PO SCH (06:21)
[2018-01-19 06:39] LABS: CALCIUM 8.6 mg/dl (8.5-10.1); CREATININE 1.07 mg/dl (0.60-1.20); POTASSIUM 3.5 mmol/L (3.5-5.1)
[2018-01-19 07:52] VITALS: BP_SYST 113; BP_SYST 130; BP_SYST 88; BP_DIAS 32; BP_DIAS 74; BP_DIAS 77; PULSE 107; PULSE 84; TEMP 36.3; O2SAT 93
[2018-01-19] MEDS: MEMANTINE 10 MG TAB PO SCH (08:19)
[2018-01-19] MEDS: DOCUSATE SODIUM 100 MG CAP PO SCH (08:19)
[2018-01-19] MEDS: CEROVITE ADV FORMULA TAB PO SCH (08:19)
[2018-01-19] MEDS: SERTRALINE HCL 100 MG TAB PO SCH (08:19)
[2018-01-19] MEDS: ASPIRIN 81 MG ECTAB PO SCH (08:19)
[2018-01-19] MEDS: ENOXAPARIN 40 MG/0.4 ML SYR SQ SCH (08:20)
--- NOTE | 2018-01-19 10:46 | Progress Note ---
Medicine Progress Note Date & Time of Visit: January 19, 2018 at 10:43. Subjective CC: Follow-up visit for syncope. HPI: Admitted 01/14/18 after recurrent syncopal episode. Patient has dementia and has no recollection of the event. Had pacemaker placed 12/24/17 for junctional bradycardia with previous episodes of syncope. Pacemaker interrogation day after this admission demonstrated a narrow-complex tachycardia lasting for 32 seconds, which seemed to occur at the time of her syncopal episode prior to admission. Started on digoxin. No further syncopal episodes. No arrhythmias noted since admission. Pt denies any CP, palpitations, lightheadedness. . Objective Last 8 Hrs Date Time Temp Pulse Resp B/P (MAP) Pulse Ox O2 Delivery O2 Flow Rate FiO2 01/19/18 08:25 Room Air 01/19/18 07:52 36.3 84 18 130/74 (92) 93 84 113/77 (89) 107 88/32 (50) 01/19/18 03:55 Room Air 01/19/18 03:46 37.0 70 18 118/80 (93) 95 Room Air Physical Exam: General- lying in bed; no distress Lungs- clear to auscultation; no respiratory distress Cardiovascular- RRR; no murmur or gallop appreciated; no JVD; no pretibial edema Abdomen- + bowel sounds, soft, nontender Extremities- no cyanosis; no calf tenderness Neuro- alert, confused Skin- warm & dry . Laboratory Results: Last 24 Hours Test 01/19/18 06:03 Sodium Level 140 mmol/L Potassium Level 3.5 mmol/L Chloride Level 106 mmol/L Carbon Dioxide Level 27 mmol/L Anion Gap 7.0 mmol/L Blood Urea Nitrogen 24 mg/dl Creatinine 1.07 mg/dl Est Creatinine Clear Calc Drug Dose 55.4 ml/min Estimated GFR () 64.4 Estimated GFR (Non- 55.6 BUN/Creatinine Ratio 22.7 Random Glucose 102 mg/dl Calcium Level 8.6 mg/dl Digoxin Level 1.5 ng/ml Assessment & Plan SYNCOPE Recurrent syncope. Probably due to SVT and/or orthostatic hypotension. Management of specific problems outlined below. SVT Noted on pacemaker interrogation. Discussed with Cardiology. Opted for therapy with digoxin rather than beta steph or calcium channel steph in light of orthostatic hypotension. Digoxin level 1.5. Discharge on dig 0.25 mg daily. Recheck dig level in about 1 month or sooner if any symptoms of dig toxicity. ORTHOSTATIC HYPOTENSION Chronic problem. Had been on fludrocortisone in the past, but discontinued because of pedal edema. BUN 28, creatinine 0.98 on admission. Persistent orthostasis after IV fluids. Encourage PO fluids. Doxepin, donepezil, memantine could be contributing factors. Discussed meds with Neuro and IM. Taper doxepin- 50 mg x 3 days, 25 mg x 3 days, then DC. Discontinue donepezil. Thigh-high TEDS. DEMENTIA Followed by Dr. Paz. 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 Donepezil has been associated with syncope. Discussed with Neuro. DC donepezil, continue memantine. Monitor for delirium. HYPOTHYROIDISM TSH = 1.040. Continue levothyroxine. VTE PROPHYLAXIS Receiving SQ heparin. Ambulate with assistance. DISPOSITION Need ongoing therapies; requested referral to [facility]. Case Management consulted. Internal Medicine follow-up with Dr. Drake. Neurology follow-up with Dr. Paz. . Current Inpatient Medications: Current Inpatient Medications Medications (Trade) Dose Ordered Sig/Jevon Route Start Time Stop Time Status Last Admin Dose Admin Miscellaneous (Iv Fluids Completed) 1 ea PRN PRN N/A 01/15/18 02:45 01/15/19 02:44 Enoxaparin Sodium (Lovenox Inj) 40 mg QAM SQ 01/15/18 09:00 02/14/18 08:59 01/19/18 08:20 40 MG Aspirin (Ecotrin Tab) 81 mg DAILY PO 01/15/18 09:00 02/14/18 08:59 01/19/18 08:19 81 MG Docusate Sodium (coLACE CAP) 100 mg QAM PO 01/15/18 09:00 02/14/18 08:59 01/19/18 08:19 100 MG Levothyroxine Sodium (Synthroid Tab) 50 mcg DAILYBB PO 01/15/18 06:30 02/14/18 06:29 01/19/18 06:21 50 MCG Memantine (Namenda Tab) 10 mg BID PO 01/15/18 09:00 02/14/18 08:59 01/19/18 08:19 10 MG Multivitamins/ Minerals (Multivitamin W/ Minerals Tab) 1 tab DAILY PO 01/15/18 09:00 02/14/18 08:59 01/19/18 08:19 1 TAB Sertraline HCl (Zoloft Tab) 100 mg QAM PO 01/15/18 09:00 02/14/18 08:59 01/19/18 08:19 100 MG Simvastatin (Zocor Tab) 20 mg HS PO 01/15/18 21:00 02/14/18 20:59 01/18/18 20:30 20 MG Miscellaneous Information (Order Awaiting Action) 1 ea QS N/A 01/15/18 08:00 02/14/18 07:59 Doxepin HCl (Sinequan Cap) 50 mg HS PO 01/17/18 21:00 02/16/18 20:59 01/18/18 20:30 50 MG Digoxin (Lanoxin Tab) 0.25 mg DAILY@16 PO 01/18/18 16:00 02/17/18 15:59 01/18/18 16:01 0.25 MG
[2018-01-19] MEDS ORDERED: SNQ/25 PO (10:55)
--- NOTE | 2018-01-19 11:01 | Discharge Instructions ---
Discharge Instructions Date of Service January 19, 2018. Admission Reason for Admission: syncope . Discharge Discharge Diagnosis / Problem: syncope Discharge Goals Goal(s): Improve function, Improve disease control Activity Recommendations Activity Level: Assistance Required Therapies: Physical Therapy, Occupational Therapy . Additional Information Patient informed of condition: Yes Advance Directives: Yes DNR: No Level of Care: Acute Rehab Communicable Disease: No Prognosis: Improving Bonds Catheter: No Instructions / Follow-Up Instructions / Follow-Up INTERNAL MEDICINE Dr. Drake Please arrange for f/u appt at time of discharge from your facility. Thank you for receiving this patient in transfer. Please call if you have any questions. Horace Burns . Current Hospital Diet Patient's current hospital diet: AHA Diet (Heart Healthy) Discharge Diet Recommended Diet: Regular Diet Pending Studies Studies pending at discharge: no Physician Orders On Transfer Special Precautions: fall precautions Please note that patient has a right homonymous hemianopsia and should be approached and greeted from the left. . Vital Signs: routine . Weigh: routine . Additional Orders: VTE PROPHYLAXIS Lovenox 40 mg daily until ambulatory thigh high TEDS apply each morning remove at bed time encourage PO fluids Please check basic metabolic profile in 1 week. . Medical Emergencies . Who to Call and When: Medical Emergencies: If at any time you feel your situation is an emergency, please call 911 immediately. . Non-Emergent Contact Non-Emergency issues call your: Primary Care Provider, Hospital Doctor . . "Provider Documentation" section prepared by Horace Burns. . Core Measure Problem Core Measures: None
[2018-01-19] MEDS ORDERED: LNX25 PO (11:02)
[2018-01-19] MEDS ORDERED: LVNIS40 SQ (11:02)
--- NOTE | 2018-01-19 11:08 | Discharge Summary ---
Discharge Summary Date of Service January 19, 2018. Discharge Summary Admission Date: January 17, 2018 at 13:41 Discharge Date: January 19, 2018 Discharge Disposition: Rehab Principal Diagnosis: syncope OTHER ACUTE / SECONDARY DIAGNOSES supraventricular tachycardia dehydration orthostatic hypotension . Secondary Diagnoses/Problems: Medical Problems: (1) Advanced dementia Permanent Comment: 2/2 small ischemic vessel disease Status: Chronic (3) HLD (hyperlipidemia) Status: Chronic (4) Hypothyroidism Status: Chronic (6) Syncopal episodes Status: Chronic Surgical Problems: (1) H/O tubal ligation Status: Resolved . Procedures: pacemaker interrogation PT OT . Consultations: Cardiology . Pending Studies/Follow-Up: Please check basic metabolic profile and digoxin level when seen in clinic. . Medication Reconciliation New Medications: Doxepin (Sinequan) 25 Mg Cap 0 PO UD, #5 CAP 5/15 50 mg HS 5/16 25 mg HS 5/17 25 mg HS 5/18 25 mg HS discontinue Digoxin (Digoxin) 0.25 Mg Tab 0.25 MG PO DAILY, #30 TAB 5 Refills New med. Rx sent to pt's pharmacy. Enoxaparin (Enoxaparin Sodium) 40 Mg/0.4 Ml Inj 40 MG SQ QAM for 30 Days Discontinue once ambulatory. Continued Medications: Aspirin (Aspirin Ec) 81 Mg Tab 81 MG PO DAILY Docusate Sodium (Stool Softener) 100 Mg Cap 100 MG PO QAM Levothyroxine Sodium (Levothyroxine Sodium) 50 Mcg Tab 50 MCG PO QAM Memantine HCl (Memantine HCl) 10 Mg Tab 10 MG PO BID Multiple Vitamins W/ Minerals (Multi For Her) 1 Tab Tab 1 TAB PO DAILY Sertraline HCl (Sertraline HCl) 100 Mg Tab 100 MG PO QAM Simvastatin (Simvastatin) 20 Mg Tab 20 MG PO HS Discontinued Medications: Donepezil Hydrochloride (Donepezil Hcl) 23 Mg Tab 23 MG PO HS Doxepin Hcl (Doxepin) 75 Mg Cap 75 MG PO HS Admission Information HPI (per Admitting provider): 62 year old female with with past medical history of dementia, CVA, dyslipidemia , hypothyroidism, chronic anemia, multiple admission for syncope. Patient was recently discharged in December to [facility] for rehab for syncope. He had a dual pacemaker placed in the last admission. History obtained from family due to patient dementia. Has poor been she was walking with patient when patient almost passed out. He said that he had to hold her in order to avoid her to fall and sat her. He said patient lost consciousness for about 45 seconds. has been she was diaphoretic. As per denies any fever, chills, shortness of breath, palpitation, and chest pain. . Physical Exam (per Admitting): General Appearance: WD/WN, no apparent distress Head: normocephalic, atraumatic Eyes: PERRL, EOMI ENT: normal ENT inspection Neck: no JVD, trachea midline Respiratory/Chest: no respiratory distress, no accessory muscle use Cardiovascular: regular rate, rhythm, no JVD Abdomen/GI: normal bowel sounds, non tender Back: no CVA tenderness Extremities/Musculoskelatal: no calf tenderness Neurologic/Psych: alert, normal mood/affect Skin: warm/dry, no rash Hospital Course SYNCOPE Admitted with recurrent syncope. Probably due to SVT and/or orthostatic hypotension. Management of specific problems outlined below. SUPRAVENTRICULAR TACHYCARDIA Noted on pacemaker interrogation. Discussed with Cardiology. Opted for therapy with digoxin rather than beta steph or calcium channel steph in light of orthostatic hypotension. Digoxin level 1.5. Discharge on dig 0.25 mg daily. Recheck dig level in about 1 month or sooner if any symptoms of dig toxicity. ORTHOSTATIC HYPOTENSION Chronic problem. Had been on fludrocortisone in the past, but discontinued because of significant edema. BUN 28, creatinine 0.98 on admission. Persistent orthostasis after IV fluids. Doxepin, donepezil, memantine could be contributing factors. Discussed meds with Neuro and IM. Taper doxepin- 50 mg x 3 days, 25 mg x 3 days, then DC. Discontinued donepezil. Thigh-high TEDS. Encourage PO fluids. DEMENTIA Followed by Dr. Paz. 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 Donepezil has been associated with syncope. Discussed with Neuro. DC donepezil, continue memantine. Monitor for delirium. HYPOTHYROIDISM TSH = 1.040. Continue levothyroxine. VTE PROPHYLAXIS Receiving SQ enoxaparin. Ambulate with assistance. DISPOSITION Need ongoing therapies; requested referral to [facility]. Case Management consulted. Internal Medicine follow-up with Dr. Drake. Neurology follow-up with Dr. Paz. . Total time spent on discharge = 40 min. This includes examination of the patient, discharge planning, medication reconciliation, and communication with other providers. . Discharge Instructions Date of Service January 19, 2018. Admission Reason for Admission: syncope . Discharge Discharge Diagnosis / Problem: syncope Discharge Goals Goal(s): Improve function, Improve disease control Activity Recommendations Activity Level: Assistance Required Therapies: Physical Therapy, Occupational Therapy . Additional Information Patient informed of condition: Yes Advance Directives: Yes DNR: No Level of Care: Acute Rehab Communicable Disease: No Prognosis: Improving Bonds Catheter: No Instructions / Follow-Up Instructions / Follow-Up INTERNAL MEDICINE Dr. Drake Please arrange for f/u appt at time of discharge from your facility. Thank you for receiving this patient in transfer. Please call if you have any questions. Horace Burns . Current Hospital Diet Patient's current hospital diet: AHA Diet (Heart Healthy) Discharge Diet Recommended Diet: Regular Diet Pending Studies Studies pending at discharge: no Physician Orders On Transfer Special Precautions: fall precautions Please note that patient has a right homonymous hemianopsia and should be approached and greeted from the left. . Vital Signs: routine . Weigh: routine . Additional Orders: VTE PROPHYLAXIS Lovenox 40 mg daily until ambulatory thigh high TEDS apply each morning remove at bed time encourage PO fluids Please check basic metabolic profile in 1 week. . Medical Emergencies . Who to Call and When: Medical Emergencies: If at any time you feel your situation is an emergency, please call 911 immediately. . Non-Emergent Contact Non-Emergency issues call your: Primary Care Provider, Hospital Doctor . . "Provider Documentation" section prepared by Horace Burns. . Core Measure Problem Core Measures: None . Additional Copies To Jeanne Drake M.D.; Billy Paz M.D.
[2018-01-19 11:22] VITALS: PULSE 107; TEMP 36.3; O2SAT 93
[2018-01-19 11:24] VITALS: BP 115/79; PULSE 75; TEMP 36.8; O2SAT 94
[2018-01-19 15:09] VITALS: BP 121/73; PULSE 82; TEMP 36.3; O2SAT 94
[2018-01-19] MEDS: DIGOXIN 0.25 MG TAB PO SCH (15:34)
== END 2018-01-19 17:16 | DRG 312 ==
LOC: EDBD 21:01 → C.EDB 21:02 → C.MED 01-15 01:55 → ENRESERV 01-15 02:05 → OBSVTOIN 01-17 13:41
PROVIDERS: ADMIT Internal Medicine; ATTEND Hospitalist
DX: I95.1 Orthostatic hypotension (principal); I47.1 Supraventricular tachycardia; F03.90 Unspecified dementia, unspecified severity, without behavioral disturbance, psychotic disturbance, mood disturbance, and anxiety; Z95.0 Presence of cardiac pacemaker; E86.0 Dehydration; Z86.73 Personal history of transient ischemic attack (TIA), and cerebral infarction without residual deficits; D64.9 Anemia, unspecified; E03.9 Hypothyroidism, unspecified; E78.5 Hyperlipidemia, unspecified; Z88.0 Allergy status to penicillin; Z79.82 Long term (current) use of aspirin; Z98.890 Other specified postprocedural states